=== PATIENT | female | born 1995 | race Caucasian/White ===

== ENCOUNTER 2016-08-03 12:02 | Emergency (ER) | payer BC | END 2016-08-03 14:50 | disposition left against medical advice (07) | LOC: UCEAST 12:02 | DX: Z53.21 Procedure and treatment not carried out due to patient leaving prior to being seen by health care provider (principal); R11.10 Vomiting, unspecified; R09.81 Nasal congestion ==

== ENCOUNTER 2016-11-07 02:13 | Emergency (ER) | payer BC ==
[2016-11-07] MEDS ORDERED: Aspirin Low Dose CHEW TAB* 81 MG PO ONE (03:01)
[2016-11-07 03:52] LABS: Comments Flag Yes; Hematocrit 44 % (35-47); Hemoglobin 14.8 g/dl (12.0-16.0); Mean Corpuscular HGB Conc 34 g/dl (31-36); Mean Corpuscular Hemoglobin 31 pg (27-31); Mean Corpuscular Volume 92 fL (80-97); Red Blood Count 4.78 10^6/ul (4.0-5.4); Red Cell Distribution Width 13 % (10.5-15); White Blood Count 17.1 10^3/ul (3.5-10.8)
[2016-11-07 03:53] LABS: Add Diff/Slide Review? Slide Review Added
[2016-11-07 04:03] LABS: Albumin 4.5 g/dL (3.2-5.2); BUN/Creatinine Ratio 16.9 (8-20); Calcium 9.5 mg/dL (8.6-10.3); EGFR African American 124.2 (>60); EGFR Non-African American 96.6 (>60); Globulin 2.8 g/dL (2-4); Total Bilirubin 0.5 mg/dL (0.2-1.0); Total Protein 7.3 g/dL (6.4-8.9)
[2016-11-07 04:04] LABS: Potassium 4.2 mmol/L (3.5-5.0)
[2016-11-07 04:15] LABS: Mean Platelet Volume 10 um3 (7.4-10.4)
[2016-11-07 06:24] LABS: Urine Bilirubin Negative (Negative); Urine Glucose Negative (Negative); Urine Nitrite Negative (Negative)
[2016-11-07] MEDS ORDERED: Iohexol 350* (CONTRAST) 500 ML MDV IV ONE (07:54)
--- NOTE | 2016-11-07 07:54 | RAD ---
HISTORY: Chest pain COMPARISONS: June 20, 2015 VIEWS:1: Single frontal portable view of the chest at 4:35 AM FINDINGS: LINES AND TUBES: None. CARDIOMEDIASTINAL SILHOUETTE: The cardiomediastinal silhouette is normal for portable technique. PLEURA: The costophrenic angles are sharp. No pleural abnormalities are noted. LUNG PARENCHYMA: The lung volumes are low. The lungs are clear accounting for the phase of respiration. ABDOMEN: The upper abdomen is clear. There is no subphrenic gas. BONES AND SOFT TISSUES: No bone or soft tissue abnormalities are noted. IMPRESSION: NO ACTIVE CARDIOPULMONARY DISEASE.
--- NOTE | 2016-11-07 08:12 | RAD ---
HISTORY: Chest pain, shortness of breath, tachycardia COMPARISONS: None TECHNIQUE: Multiple contiguous axial CT scans of the chest were obtained after the administration of nonionic intravenous contrast, timed to the pulmonary arterial phase of contrast enhancement.. Coronal and sagittal multiplanar reformations are also submitted for review. FINDINGS: The study is limited by patient breathing motion artifact. This limits evaluation of the segmental and subsegmental branches of the lower lobes bilaterally NECK AND THYROID: The lower neck and thyroid are unremarkable. CHEST WALL: There is no lower cervical, axillary, or supraclavicular lymphadenopathy by size criteria. HEART AND PERICARDIUM: The heart is unremarkable. AORTA AND PULMONARY VASCULATURE: There is no pulmonary arterial filling defect to suggest pulmonary embolism. There is no linear filling defect within the aorta to suggest aortic dissection. MEDIASTINUM: There is no mediastinal lymphadenopathy by size criteria. FAREED: There is no hilar lymphadenopathy by size criteria. AIRWAY AND ESOPHAGUS: The airway is unremarkable, without endobronchial filling defect. The esophagus is grossly normal. LUNG PARENCHYMA: The lungs are clear. PLEURA: No pleural abnormalities are noted. UPPER ABDOMEN: The upper abdomen is unremarkable. BONES AND SOFT TISSUES: No bone or soft tissue abnormalities are noted. OTHER: None. IMPRESSION: NO PULMONARY ARTERIAL FILLING DEFECT TO SUGGEST PULMONARY EMBOLISM
[2016-11-07 09:53] VITALS: BP 114/55
--- NOTE | 2016-11-07 10:10 | ED ---
Julita Esteves Matthew, scribed for Dimitri Ugarte MD on 11/07/16 at 0832 . Progress - Progress Note Progress Note: The patient is a sign out from Dr. Santizo. Since onset the pain has improved. It was located mid sternal and occasionally radiated into the back. The patient states that she's had similar pain in the past, but not exactly the same. VITAL SIGNS: Reviewed. GENERAL: Patient is a well developed and nourished female who is lying comfortable in the stretcher. Patient is not in any acute respiratory distress. HEAD AND FACE: No signs of trauma. No ecchymosis, hematomas or skull depressions. No sinus tenderness. EYES: PERRLA, EOMI x 2, No injected conjunctiva, no nystagmus. EARS: Hearing grossly intact. Ear canals and tympanic membranes are within normal limits. MOUTH: Oropharynx within normal limits. NECK: Supple, trachea is midline, no adenopathy, no JVD, no carotid bruit, no c- spine tenderness, neck with full ROM. CHEST: Symmetric, no tenderness at palpation LUNGS: Clear to auscultation bilaterally. No wheezing or crackles. CVS: Regular rate and rhythm, S1 and S2 present, no murmurs or gallops appreciated. ABDOMEN: Soft, non-tender. No signs of distention. No rebound no guarding, and no masses palpated. Bowel sounds are normal. EXTREMITIES: FROM in all major joints, no edema, no cyanosis or clubbing. NEURO: Alert and oriented x 3. No acute neurological deficits. Speech is normal and follows commands. SKIN: Dry and warm - Results/Orders Results/Orders: CTA Chest IMPRESSION: NO PULMONARY ARTERIAL FILLING DEFECT TO SUGGEST PULMONARY EMBOLISM - EKG/XRAY/CT EKG: NSR - 75 bpm Comments: No ST elevation; 09:03 time of EKG Course/Dx - Course Course Of Treatment: This patient was sign out by Dr. Santizo to check secondary troponin. If the troponin was negative, the patient was requested to be discharged home and follow-up with her PCP. Test results shows secondary troponin of 0.0. Second EKG showed NSR at [address] Santizo had also done a Chest CTA which was negative for a PE. On re-examination of the patient, she has no chest pain and no other c/o. At this point the patient is asymptomatic and therefore will be discharged home with follow-up from her PCP. She is hemodynamically stable and A&Ox3. I discussed all the findings and test results with the patient. Patient was instructed to return to the emergency room immediately if any of the symptoms return or worsens. Plan of care was discussed with the patient and understands and agrees. All questions were answered at patient satisfaction. There were no further complaints or concerns. Lung exam before discharge: CTA B/L. Good air exchange. No wheezing or crackles heard. CVS: S1 and S2 present. No murmurs appreciated. Patient is alert and oriented x 3. Patient is hemodynamically stable. Patient will be discharged home with follow up PCP in the next 2-3 days - Diagnoses Provider Diagnoses: Chest pain The documentation as recorded by the Julita chávez Matthew accurately reflects the service I personally performed and the decisions made by me, Dimitri Ugarte MD.
--- NOTE | 2016-11-07 20:58 | ED ---
Enio Esteves Billy, scribed for Rik Santizo MD on 11/07/16 at 0422 . 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 for evaluation of intermittent chest pain, dizziness, diaphoresis, and nausea. 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 She describes her chest pain as intermittent pressure. Her dizziness is worse with rapid change in position. She has had similar symptoms in the past. - History Of Current Complaint Chief Complaint: EDChestPainROMI Time Seen by Provider: 11/07/16 03:14 Hx Obtained From: Patient Onset/Duration: Gradual Onset Timing: Intermittent, Lasting: Severity Currently: Moderate Severity Initially: Moderate Aggravating Factor(s): rapid change in position Associated Signs And Symptoms: Positive: Dizziness, Chest Pain, Nausea, Diaphoresis - Allergies/Home Medications Allergies/Adverse Reactions: Allergies Allergy/AdvReac Type Severity Reaction Status Date / Time No Known Allergies Allergy Verified 11/07/16 02:20 PMH/Surg Hx/FS Hx/Imm Hx Endocrine/Hematology History: Denies: Hx Anticoagulant Therapy, Hx Diabetes, Hx Thyroid Disease Cardiovascular History: Denies: Hx Congestive Heart Failure, Hx Deep Vein Thrombosis, Hx Hypertension , Hx Myocardial Infarction, Hx Pacemaker/ICD Comment Only: Other Cardiovascular Problems/Disorders - HEART ABLATION , SINUS TACHYCARDIA, [id number] SYDROME Respiratory History: Denies: Hx Asthma, Hx Chronic Obstructive Pulmonary Disease (COPD), Hx Lung Cancer, Hx Pneumonia, Hx Pulmonary Embolism GI History: Denies: Hx Gall Bladder Disease, Hx Gastrointestinal Bleed, Hx Ulcer, Hx Urosepsis History: Denies: Hx Kidney Stones, Hx Renal Disease Neurological History: Denies: Hx Dementia, Hx Migraine, Hx Seizures, Hx Transient Ischemic Attacks (TIA) Psychiatric History: Denies: Hx Anxiety, Hx Depression, Hx Schizophrenia, Hx Bipolar Disorder - Surgical History Surgery Procedure, Year, and Place: Tonsillectomy age 5, catheter ablation June 2012 at [place], CARDIAC ABLATION NOVEMBER 2009 - Immunization History Date of Tetanus Vaccine: Up to date Date of Influenza Vaccine: None Infectious Disease History: No Infectious Disease History: Denies: Hx Clostridium Difficile, Hx Hepatitis, Hx Human Immunodeficiency Virus (HIV), History Other Infectious Disease, Traveled Outside the [place] in Last 30 Days - Family History Known Family History: Positive: Renal Disease - kidney stone Negative: Cardiac Disease, Hypertension, Diabetes - Social History Alcohol Use: Rare Substance Use Type: Reports: None Smoking Status (MU): Heavy Every Day Tobacco Smoker Type: Cigarettes Amount Used/How Often: 1/2 ppd Length of Time of Smoking/Using Tobacco: 2 years Have You Smoked in the Last Year: No Review of Systems Positive: Skin Diaphoresis, Other - face feels warm. Negative: Fever, Chills Negative: Erythema Negative: Sore Throat Positive: Chest Pain Negative: Shortness Of Breath, Cough Positive: Nausea. Negative: Vomiting, Diarrhea Negative: burning Negative: Myalgia, Edema Negative: Rash Neurological: Other - dizzy All Other Systems Reviewed And Are Negative: Yes Physical Exam - Summary Physical Exam Summary: Constitutional: Well-developed, Well-nourished, Alert. (-) Distressed Skin: Warm, Dry HENT: Normocephalic; Atraumatic Eyes: Conjunctiva normal Neck: Musculoskeletal ROM normal neck. (-) JVD, (-) Stridor, (-) Tracheal deviation Cardio: Rhythm regular, rate normal, Heart sounds normal; Intact distal pulses; The pedal pulses are 2+ and symmetric. Radial pulses are 2+ and symmetric. (-) Murmur Pulmonary/Chest wall: Effort normal. (-) Respiratory distress, (-) Wheezes, (-) Rales Abd: Soft, (-) Tenderness, (-) Distension, (-) Guarding, (-) Rebound Musculoskeletal: (-) Edema Lymph: (-) Cervical adenopathy Neuro: Alert, Oriented x3 Psych: Mood and affect Normal Triage Information Reviewed: Yes Vital Signs On Initial Exam: Initial Vitals Temp Pulse Resp BP Pulse Ox 96.5 F 121 15 155/83 100 11/07/16 02:15 11/07/16 02:15 11/07/16 02:15 11/07/16 02:15 11/07/16 02:15 Vital Signs Reviewed: Yes - [place] Coma Scale Coma Scale Total: 15 Diagnostics - Vital Signs Vital Signs Temp Pulse Resp BP Pulse Ox 11/07/16 02:18 96.5 F 119 15 155/83 100 11/07/16 02:15 96.5 F 121 15 155/83 100 - Laboratory Lab Results: Lab Results 11/07/16 11/07/16 11/07/16 Range/Units 03:04 03:04 03:04 WBC 17.1 H (3.5-10.8) 10^3/ul RBC 4.78 (4.0-5.4) 10^6/ul Hgb 14.8 (12.0-16.0) g/dl Hct 44 (35-47) % MCV 92 (80-97) fL MCH 31 (27-31) pg MCHC 34 (31-36) g/dl RDW 13 (10.5-15) % Plt Count 242 (150-450) 10^3/ul MPV 10 (7.4-10.4) um3 Neut % (Auto) 68.3 (38-83) % Lymph % (Auto) 22.4 L (25-47) % [place] % (Auto) 6.9 (1-9) % Eos % (Auto) 1.7 (0-6) % Baso % (Auto) 0.7 (0-2) % Absolute Neuts (auto) 11.7 H (1.5-7.7) 10^3/ul Absolute Lymphs (auto) 3.8 (1.0-4.8) 10^3/ul Absolute Monos (auto) 1.2 H (0-0.8) 10^3/ul Absolute Eos (auto) 0.3 (0-0.6) 10^3/ul Absolute Basos (auto) 0.1 (0-0.2) 10^3/ul Absolute Nucleated RBC 0 10^3/ul Nucleated RBC % 0 Sodium 133 (133-145) mmol/L Potassium 4.2 (3.5-5.0) mmol/L Chloride 102 (101-111) mmol/L Carbon Dioxide 23 (22-32) mmol/L Anion Gap 8 (2-11) mmol/L BUN 13 (6-24) mg/dL Creatinine 0.77 (0.51-0.95) mg/dL Est GFR ( Amer) 124.2 (>60) Est GFR (Non-Af Amer) 96.6 (>60) BUN/Creatinine Ratio 16.9 (8-20) Glucose 106 H (70-100) mg/dL Lactic Acid 0.8 (0.5-2.0) mmol/L Calcium 9.5 (8.6-10.3) mg/dL Total Bilirubin 0.50 (0.2-1.0) mg/dL AST 26 (13-39) U/L ALT 30 (7-52) U/L Alkaline Phosphatase 73 (34-104) U/L Troponin I 0.00 (<0.04) ng/mL Total Protein 7.3 (6.4-8.9) g/dL Albumin 4.5 (3.2-5.2) g/dL Globulin 2.8 (2-4) g/dL Albumin/Globulin Ratio 1.6 (1-3) Result Diagrams: 11/07/16 03:04 11/07/16 03:04 Lab Statement: Any lab studies that have been ordered have been reviewed, and results considered in the medical decision making process. - Radiology CXR Radiology Interpretation Completed By: ED Physician - Possible right lower lung field infiltrate. Correlate with CT imaging. - EKG 0235 EKG Interpretation: sinus tachycardia 104 bpm, no STEMI EKG Comparison: No Significant Change - Compared to 06/20/15 Complex Multi-Symp Course/Dx - Diagnoses Provider Diagnoses: Chest pain Discharge - Discharge Plan Condition: Stable Disposition: HOME Patient Education Materials: Chest Pain (ED) Referrals: [facility] [place] [facility] [Outside] Additional Instructions: Please follow-up with your primary care physician in 2 days. The documentation as recorded by the Enio chávez Billy accurately reflects the service I personally performed and the decisions made by , Rik Santizo MD.
== END 2016-11-07 09:52 | disposition home or self-care (01) ==
LOC: ED 02:13
DX: R07.9 Chest pain, unspecified (principal); R42 Dizziness and giddiness; R11.0 Nausea; F17.210 Nicotine dependence, cigarettes, uncomplicated
CPT/HCPCS: 36415; 71010; 71275; 80053; 81003; 83605; 84484; 85025; 93005; 99283; A9270-GY; Q9967

== ENCOUNTER 2017-03-06 17:02 | Emergency (ER) | payer BC ==
[2017-03-06 17:19] VITALS: BP 146/80
--- NOTE | 2017-03-06 17:50 | UC ---
Hand/Wrist HPI - HPI Summary HPI Summary: complaint of left pointer finger pain that started after slamming finge rin care door throughout the day finger pain has increased and feels stiff using ice with some relief hasn't taken any medication for pain constant aching throbbing pain in finger that is non radiating - History Of Current Complaint Chief Complaint: UCUpperExtremity Stated Complaint: FINGER INJURY Time Seen by Provider: 03/06/17 17:36 Hx Last Menstrual Period: 02/14/17 - Allergies/Home Medications Allergies/Adverse Reactions: Allergies Allergy/AdvReac Type Severity Reaction Status Date / Time No Known Allergies Allergy Verified 03/06/17 17:19 Home Medications: Home Medications NK [No Home Medications Reported] 03/06/17 [History Confirmed 03/06/17] PMH/Surg Hx/FS Hx/Imm Hx Previously Healthy: Yes - WPWsyndrome Cardiovascular History: Cardiac Disease Other History Of: Negative For: HIV, Hepatitis B, Hepatitis C, Anticoagulant Therapy - Surgical History Surgical History: Yes Surgery Procedure, Year, and Place: Tonsillectomy age 5, catheter ablation June 2012 at [place], CARDIAC ABLATION NOVEMBER 2009 - Family History Known Family History: Positive: None, Renal Disease - kidney stone Negative: Cardiac Disease, Hypertension, Diabetes - Social History Occupation: Employed Full-time Lives: With Family Alcohol Use: Occasionally Substance Use Type: None Smoking Status (MU): Heavy Every Day Tobacco Smoker Type: Cigarettes Amount Used/How Often: 1/2 ppd Length of Time of Smoking/Using Tobacco: 2 years Have You Smoked in the Last Year: No Household Exposure Type: Cigarettes Cessation Counseling: Patient Advised to Stop - Immunization History Vaccination Up to Date: Yes Review of Systems Constitutional: Negative Skin: Negative Eyes: Negative ENT: Negative Respiratory: Negative Cardiovascular: Negative Gastrointestinal: Negative Genitourinary: Negative Motor: Negative Neurovascular: Negative Musculoskeletal: Other: - left pointer finger Neurological: Negative Psychological: Negative All Other Systems Reviewed And Are Negative: Yes Physical Exam Triage Information Reviewed: Yes Appearance: No Pain Distress, Well-Nourished Vital Signs: Initial Vital Signs Temp 98.8 F 03/06/17 17:16 Pulse 100 03/06/17 17:16 Resp 20 03/06/17 17:16 BP 146/80 03/06/17 17:16 Pulse Ox 100 03/06/17 17:16 Vital Signs Reviewed: Yes Eyes: Positive: Conjunctiva Clear ENT: Positive: Pharynx normal, TMs normal Neck: Positive: No Lymphadenopathy Respiratory: Positive: Lungs clear, Normal breath sounds, No respiratory distress Cardiovascular: Positive: RRR, No Murmur, Pulses Normal, Brisk Capillary Refill Abdomen Description: Positive: Nontender, Soft Bowel Sounds: Positive: Present Musculoskeletal: Positive: Other: - LUE- left hand - edema amd tenderness throughout entire finger- Full ROM- no metacrpal tenderness Neurological: Positive: Alert Psychological Exam: Normal Skin Exam: Normal Hand/Wrist Course/Dx - Course Course Of Treatment: x-ray negative for fractures - Differential Dx/Diagnosis Differential Diagnosis/HQI/PQRI: Contusion, Fracture Provider Diagnoses: left pointer finger contusion Discharge - Discharge Plan Condition: Stable Disposition: HOME Patient Education Materials: Contusion in Adults (ED), RICE Therapy (ED) Referrals: No Primary Care Phys,NOPCP [Primary Care Provider] - [facility] [place] [facility] [Outside] Additional Instructions: Increase fluids and rest Take acetaminophen or ibuprofen for fever or pain Please review your discharge instructions. If your symptoms do not improve please call your primary care provider or return to urgent care.
--- NOTE | 2017-03-06 18:32 | RAD ---
INDICATION: Gross injury to second digit proximal phalanx COMPARISON: None. TECHNIQUE: 4 views of the left hand were obtained. FINDINGS: The adequately corticated bones are in normal alignment. No significant focal osseous abnormality or fracture is seen. Joint spaces appear maintained. IMPRESSION: Normal left hand radiograph. If the patient's symptoms persist, follow-up imaging is recommended.
== END 2017-03-06 18:30 | disposition home or self-care (01) ==
LOC: UCEAST 17:02
DX: S60.022A Contusion of left index finger without damage to nail, initial encounter (principal); W23.0XXA Caught, crushed, jammed, or pinched between moving objects, initial encounter; I45.6 Pre-excitation syndrome; F17.210 Nicotine dependence, cigarettes, uncomplicated; I51.9 Heart disease, unspecified
CPT/HCPCS: 99211; G0463

== ENCOUNTER 2017-10-19 18:57 | Emergency (ER) | payer BC ==
[2017-10-19 19:06] VITALS: BP 158/81
--- NOTE | 2017-10-19 21:19 | RAD ---
HISTORY: Left knee injury COMPARISONS: March 08, 2015 VIEWS: 4, Frontal, lateral, axial, and oblique views of the left knee FINDINGS: BONE DENSITY: Normal. BONES: There is no displaced fracture. JOINTS: There is no arthropathy. There is no suprapatellar joint effusion or lipohemarthrosis. ALIGNMENT: There is no dislocation. SOFT TISSUES: Unremarkable. OTHER FINDINGS: None. IMPRESSION: NO ACUTE OSSEOUS INJURY. IF SYMPTOMS PERSIST, RECOMMEND REPEAT IMAGING.
--- NOTE | 2017-10-19 21:30 | UC ---
Knee Pain HPI - HPI Summary HPI Summary: Last night patient had a friend fall on to the lateral aspect of her left knee while she was sitting on the ground. 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 - History of Current Complaint Chief Complaint: UCLowerExtremity Stated Complaint: KNEE INJURY Time Seen by Provider: 10/19/17 19:30 Hx Obtained From: Patient Hx Last Menstrual Period: 09/20/17 ?: No Onset/Duration: Sudden Onset, Lasting Days - 1, Still Present Severity Initially: Moderate Severity Currently: Moderate Location Of Injury: Lateral left knee Pain Intensity: 8 Pain Scale Used: 0-10 Numeric Character: Throbbing, Stiffness Aggravating Factor(s): Movement, Weight Bearing Alleviating Factor(s): Rest Associated Signs And Symptoms: Positive: Negative Able to Bear Weight: Yes - Allergies/Home Medications Allergies/Adverse Reactions: Allergies Allergy/AdvReac Type Severity Reaction Status Date / Time No Known Allergies Allergy Verified 10/19/17 19:06 Home Medications: Home Medications Ibuprofen [Advil] 1,000 mg PO DAILY PRN 10/19/17 [History Confirmed 10/19/17] PMH/Surg Hx/FS Hx/Imm Hx Previously Healthy: Yes Other History Of: Negative For: HIV, Hepatitis B, Hepatitis C, Anticoagulant Therapy - Surgical History Surgical History: Yes Surgery Procedure, Year, and Place: Tonsillectomy age 5, catheter ablation June 2012 at [place], CARDIAC ABLATION NOVEMBER 2009 - Family History Known Family History: Positive: None, Renal Disease - kidney stone Negative: Cardiac Disease, Hypertension, Diabetes - Social History Occupation: Employed Full-time Lives: With Family Alcohol Use: Occasionally Substance Use Type: None Smoking Status (MU): Heavy Every Day Tobacco Smoker Type: Cigarettes Amount Used/How Often: 1/2 ppd Length of Time of Smoking/Using Tobacco: 2 years Have You Smoked in the Last Year: No Household Exposure Type: Cigarettes Cessation Counseling: Patient Advised to Stop - Immunization History Vaccination Up to Date: Yes Review of Systems Constitutional: Negative Skin: Negative Eyes: Negative ENT: Negative Respiratory: Negative Cardiovascular: Negative Gastrointestinal: Negative Genitourinary: Negative Motor: Negative Neurovascular: Negative Musculoskeletal: Arthralgia - Left knee pain Neurological: Negative Psychological: Negative Is Patient Immunocompromised?: No All Other Systems Reviewed And Are Negative: Yes Physical Exam Triage Information Reviewed: Yes Appearance: Well-Appearing, No Pain Distress, Well-Nourished Vital Signs: Initial Vital Signs Temp 97.1 F 10/19/17 19:03 Pulse 89 10/19/17 19:03 Resp 16 10/19/17 19:03 BP 158/81 10/19/17 19:03 Pulse Ox 100 10/19/17 19:03 Vital Signs Reviewed: Yes Eye Exam: Normal Eyes: Positive: Conjunctiva Clear ENT Exam: Normal ENT: Positive: Normal ENT inspection, Hearing grossly normal. Negative: Nasal congestion, Trismus, Muffled voice, Hoarse voice Neck exam: Normal Neck: Positive: Supple, Nontender Respiratory Exam: Normal Respiratory: Positive: Chest non-tender, No respiratory distress, No accessory muscle use Cardiovascular Exam: Normal Cardiovascular: Positive: RRR, Pulses Normal, Brisk Capillary Refill Musculoskeletal Exam: Normal Musculoskeletal: Positive: Strength Intact, ROM Intact, No Edema Neurological Exam: Normal Neurological: Positive: Alert, Muscle Tone Normal Psychological Exam: Normal Skin Exam: Normal Diagnostics - Radiology No standard instances Xray Interpretation: No Acute Changes Radiology Interpretation Completed By: ED Physician, Radiologist Knee Pain Course/Dx - Course Course Of Treatment: [place] wrap and crutches, Rice, ibuprofen. off work 10/20/17 follow with orthopedic doctor if not resolved 10/21/17 - Differential Dx/Diagnosis Provider Diagnoses: Left knee contusion, elevated blood pressure without diagnosis of hypertension, nicotine dependent Discharge - Sign-Out/Discharge Documenting (check all that apply): Discharge - Discharge Plan Condition: Stable Disposition: HOME Patient Education Materials: Ibuprofen (By mouth), Knee Pain (ED), Hypertension (ED), R.I.C.E. Treatment (ED) Forms: *Work Release Referrals: Desmond Nicole MD [Medical Doctor] - 3 Days - Billing Disposition and Condition Condition: STABLE Disposition: HOME
== END 2017-10-19 21:45 | disposition home or self-care (01) ==
LOC: UCEAST 18:57
DX: S80.02XA Contusion of left knee, initial encounter (principal); W50.0XXA Accidental hit or strike by another person, initial encounter; Y92.9 Unspecified place or not applicable; R03.0 Elevated blood-pressure reading, without diagnosis of hypertension; F17.210 Nicotine dependence, cigarettes, uncomplicated
CPT/HCPCS: 81025; 99213; G0463

== ENCOUNTER 2017-11-08 00:04 | Emergency (ER) | payer BC ==
[2017-11-08] MEDS ORDERED: Clindamycin CAP* 150 MG PO ONE (00:57)
[2017-11-08] MEDS ORDERED: Acetaminophen TAB* 325 MG ONE (01:07)
[2017-11-08] MEDS ORDERED: Acetaminophen TAB* 325 MG PO ONE (01:10)
[2017-11-08 02:07] VITALS: BP 136/84
--- NOTE | 2017-11-08 02:49 | ED ---
Throat Pain/Nasal Congestion <Karl Marsh - Last Filed: 11/08/17 02:51> - HPI Summary HPI Summary: Pt. is a 21 y.o female who presents to the ER for left-sided facial swelling and dental pain started early this afternoon. She denies fever, chills, nausea , vomiting. Patient notes that she recently found out she was . She is no significant past medical history. She states she had some old penicillin from a previous infection and took 3 tablets today. Touching the affected area makes symptoms worse. Rest makes symptoms better. Symptoms are mild in severity. - History of Current Complaint Hx Obtained From: Patient Onset/Duration: Sudden Onset Severity: Moderate Associated Signs And Symptoms: Negative: Dysphagia, FB Sensation, Drooling Cough: None <Navjot Villa - Last Filed: 11/08/17 19:50> - History of Current Complaint Chief Complaint: EDDentalPain Time Seen by Provider: 11/08/17 00:51 - Allergies/Home Medications Allergies/Adverse Reactions: Allergies Allergy/AdvReac Type Severity Reaction Status Date / Time No Known Allergies Allergy Verified 11/08/17 12:30 PMH/Surg Hx/FS Hx/Imm Hx Previously Healthy: Yes Endocrine/Hematology History: Denies: Hx Anticoagulant Therapy, Hx Diabetes, Hx Thyroid Disease Cardiovascular History: Denies: Hx Congestive Heart Failure, Hx Deep Vein Thrombosis, Hx Hypertension , Hx Myocardial Infarction, Hx Pacemaker/ICD Comment Only: Other Cardiovascular Problems/Disorders - HEART ABLATION , SINUS TACHYCARDIA, [id number] SYDROME Respiratory History: Denies: Hx Asthma, Hx Chronic Obstructive Pulmonary Disease (COPD), Hx Lung Cancer, Hx Pneumonia, Hx Pulmonary Embolism GI History: Denies: Hx Gall Bladder Disease, Hx Gastrointestinal Bleed, Hx Ulcer, Hx Urosepsis History: Denies: Hx Kidney Stones, Hx Renal Disease Neurological History: Denies: Hx Dementia, Hx Migraine, Hx Seizures, Hx Transient Ischemic Attacks (TIA) Psychiatric History: Denies: Hx Anxiety, Hx Depression, Hx Schizophrenia, Hx Bipolar Disorder - Surgical History Surgery Procedure, Year, and Place: Tonsillectomy age 5, catheter ablation June 2012 at [place], CARDIAC ABLATION NOVEMBER 2009 - Immunization History Date of Tetanus Vaccine: Up to date Date of Influenza Vaccine: None Infectious Disease History: No Infectious Disease History: Denies: Hx Clostridium Difficile, Hx Hepatitis, Hx Human Immunodeficiency Virus (HIV), History Other Infectious Disease, Traveled Outside the [place] in Last 30 Days - Family History Known Family History: Positive: None, Renal Disease - kidney stone Negative: Cardiac Disease, Hypertension, Diabetes - Social History Occupation: Unemployed Lives: With Family Alcohol Use: Occasionally Substance Use Type: Reports: None Hx Tobacco Use: Yes Smoking Status (MU): Heavy Every Day Tobacco Smoker Type: Cigarettes Amount Used/How Often: 1/2 ppd Length of Time of Smoking/Using Tobacco: 2 years Have You Smoked in the Last Year: No <Navjot Villa - Last Filed: 11/08/17 19:50> Review of Systems Constitutional: Negative Negative: Fever, Chills Eyes: Negative Positive: Dental Pain, Other - Facial swelling. Positive: Palpitations Negative: Shortness Of Breath Gastrointestinal: Negative Negative: Abdominal Pain Neurological: Negative Psychological: Normal All Other Systems Reviewed And Are Negative: Yes <Navjot Villa - Last Filed: 11/08/17 19:50> Physical Exam Vital Signs On Initial Exam: Initial Vitals Temp Pulse Resp BP Pulse Ox 98.7 F 111 18 140/86 99 11/08/17 00:05 11/08/17 00:05 11/08/17 00:05 11/08/17 00:05 11/08/17 00:05 <Karl Marsh - Last Filed: 11/08/17 02:51> Triage Information Reviewed: Yes Vital Signs On Initial Exam: Initial Vitals Temp Pulse Resp BP Pulse Ox 98.7 F 111 18 140/86 99 11/08/17 00:05 11/08/17 00:05 11/08/17 00:05 11/08/17 00:05 11/08/17 00:05 Vital Signs Reviewed: Yes Appearance: Positive: Well-Appearing - Pt. sitting up in bed in NAD. Friend present. Skin: Positive: Warm, Dry Head/Face: Positive: Normal Head/Face Inspection Eyes: Positive: Normal, KADY ENT: Positive: Pharynx normal, TMs normal. Negative: Pharyngeal erythema, Nasal congestion, Nasal drainage, Tonsillar swelling, Tonsillar exudate, Sinus tenderness Dental: Positive: Other - Dental fillings noted to left top molars. Surrounding gums are erythematous and edematous. Diffuse pain on palpation. No drainage abscess noted. Mild facial swelling over the right maxillary region. No submandibular edema. No trismus. No evidence of carlos's angina. No cervical lymphadenopathy. Neck: Positive: Supple, Nontender, No Lymphadenopathy. Negative: Enlarged Nodes @ Respiratory/Lung Sounds: Positive: Clear to Auscultation, Breath Sounds Present Cardiovascular: Positive: Normal, RRR Neurological: Positive: Normal, CN Intact II-III Psychiatric: Positive: Normal <Navjot Villa - Last Filed: 11/08/17 19:50> Diagnostics - Vital Signs Vital Signs Temp Pulse Resp BP Pulse Ox 11/08/17 02:06 98.3 F 101 16 136/84 98 11/08/17 00:05 98.7 F 111 18 140/86 99 <Karl Marsh - Last Filed: 11/08/17 02:51> - Vital Signs Vital Signs Temp Pulse Resp BP Pulse Ox 11/08/17 02:06 98.3 F 101 16 136/84 98 11/08/17 00:05 98.7 F 111 18 140/86 99 <Navjot Villa - Last Filed: 11/08/17 19:50> EENT Course/Dx <Karl Marsh - Last Filed: 11/08/17 02:51> - Course Course Of Treatment: Patient presenting to the ER for dental pain and facial swelling. She is afebrile with stable vital signs. Oxygen saturation is 98% on room air which is normal. 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 EKG was done at 0151 and shows a sinus rhythm of 92 bpm, normal axis, short WA interval, delta waves noted. Case discussed briefly with Dr. Marsh. Will start patient on clindamycin. Advised she can take Tylenol for pain as directed. Also advised her to call her physical therapist aide tomorrow for a close follow-up appointment. She was also given the information for oral surgery counter sales person for close follow-up. Advised to apply warm compresses to face. To return to ER for fever, vomiting, increased swelling or pain. Patient understands and agrees with plan. - Differential Diagnoses Differential Diagnoses: Cellulitis, Dental Abscess, Dental Caries, Sinusitis <Navjot Villa - Last Filed: 11/08/17 19:50> - Diagnoses Provider Diagnoses: Pain, dental, Intermittent palpitations, WPW (Hldag-Lzvamgqaz-Gytzl syndrome) Discharge - Billing Disposition and Condition Condition: GOOD Disposition: HOME <Karl Marsh - Last Filed: 11/08/17 02:51> - Sign-Out/Discharge Documenting (check all that apply): Discharge - Billing Disposition and Condition Condition: GOOD Disposition: HOME <Navjot Villa - Last Filed: 11/08/17 19:50> - Discharge Plan Condition: Good Disposition: HOME Prescriptions: Clindamycin Cap(NF) [Clindamycin Cap 300 mg Cap(NF)] 300 mg PO Q6H 10 Days #40 cap Patient Education Materials: Dental Abscess (ED) Referrals: Salvador Ruiz MD [Doctor of Dental Medicine] - No Primary Care Phys,NOPCP [Primary Care Provider] - Additional Instructions: Call Dr. Ruiz' office tomorrow to make an appointment Take antibiotic as directed Can take Tylenol for pain as directed Apply warm compresses Return to ER for increased swelling, pain, fever, vomiting
== END 2017-11-08 02:06 | disposition home or self-care (01) ==
LOC: ED 00:04
DX: K08.89 Other specified disorders of teeth and supporting structures (principal); R00.2 Palpitations; I45.6 Pre-excitation syndrome
CPT/HCPCS: 93005; 99282; A9270-GY

== ENCOUNTER 2017-11-08 12:23 | Emergency (ER) | payer BC ==
[2017-11-08] MEDS ORDERED: NS 0.9% 1000 ML* 1,000 ML IV ONE (14:31)
[2017-11-08] MEDS ORDERED: Clindamycin 600 MG IVPREMIX(* 600 MG/50 ML SDV IV ONE (14:31)
--- NOTE | 2017-11-08 14:34 | ED ---
Throat Pain/Nasal Congestion - HPI Summary HPI Summary: 21-year-old female presents with dental pain for the past day. She states she was seen here last night and was told if swelling increases she should return. She woke up this morning with increase swelling. She is 6 weeks . She denies any fevers or chills. She denies any nausea vomiting. She denies any pain with eye movement. States she has noticed some swelling below her left eye. She denies any difficulty swallowing. She denies any chest pressure or shortness of breath. She has taken 2 doses of the clindamycin. She does not have a dentist at this time. She states she did not a dentist at this time. - History of Current Complaint Chief Complaint: EDDentalPain Time Seen by Provider: 11/08/17 14:14 - Allergies/Home Medications Allergies/Adverse Reactions: Allergies Allergy/AdvReac Type Severity Reaction Status Date / Time No Known Allergies Allergy Verified 11/08/17 12:30 PMH/Surg Hx/FS Hx/Imm Hx Endocrine/Hematology History: Denies: Hx Anticoagulant Therapy, Hx Diabetes, Hx Thyroid Disease Cardiovascular History: Denies: Hx Congestive Heart Failure, Hx Deep Vein Thrombosis, Hx Hypertension , Hx Myocardial Infarction, Hx Pacemaker/ICD Comment Only: Other Cardiovascular Problems/Disorders - HEART ABLATION , SINUS TACHYCARDIA, [id number] SYDROME Respiratory History: Denies: Hx Asthma, Hx Chronic Obstructive Pulmonary Disease (COPD), Hx Lung Cancer, Hx Pneumonia, Hx Pulmonary Embolism GI History: Denies: Hx Gall Bladder Disease, Hx Gastrointestinal Bleed, Hx Ulcer, Hx Urosepsis History: Denies: Hx Kidney Stones, Hx Renal Disease Neurological History: Denies: Hx Dementia, Hx Migraine, Hx Seizures, Hx Transient Ischemic Attacks (TIA) Psychiatric History: Denies: Hx Anxiety, Hx Depression, Hx Schizophrenia, Hx Bipolar Disorder - Surgical History Surgery Procedure, Year, and Place: Tonsillectomy age 5, catheter ablation June 2012 at [place], CARDIAC ABLATION NOVEMBER 2009 - Immunization History Date of Tetanus Vaccine: Up to date Date of Influenza Vaccine: None Infectious Disease History: No Infectious Disease History: Denies: Hx Clostridium Difficile, Hx Hepatitis, Hx Human Immunodeficiency Virus (HIV), History Other Infectious Disease, Traveled Outside the [place] in Last 30 Days - Family History Known Family History: Positive: None, Renal Disease - kidney stone Negative: Cardiac Disease, Hypertension, Diabetes - Social History Alcohol Use: Occasionally Substance Use Type: Reports: None Hx Tobacco Use: Yes Smoking Status (MU): Heavy Every Day Tobacco Smoker Type: Cigarettes Amount Used/How Often: 1/2 ppd Length of Time of Smoking/Using Tobacco: 2 years Have You Smoked in the Last Year: No Review of Systems Negative: Fever Positive: Dental Pain, Other - facial swelling Negative: Chest Pain Negative: Shortness Of Breath All Other Systems Reviewed And Are Negative: Yes Physical Exam Triage Information Reviewed: Yes Vital Signs On Initial Exam: Initial Vitals Temp Pulse Resp BP Pulse Ox 98.1 F 110 16 124/81 98 11/08/17 12:30 11/08/17 12:30 11/08/17 12:30 11/08/17 12:30 11/08/17 12:30 Vital Signs Reviewed: Yes Appearance: Positive: Well-Appearing Skin: Positive: Warm, Dry Head/Face: Positive: Normal Head/Face Inspection Eyes: Positive: Normal, EOMI, KADY, Conjunctiva Clear ENT: Positive: Normal ENT inspection, Pharynx normal, TMs normal Dental: Positive: Other - edema to left side of face. Negative: Abscess @ - no area of loculation felt Neck: Positive: Supple, Nontender, No Lymphadenopathy Respiratory/Lung Sounds: Positive: Clear to Auscultation, Breath Sounds Present Cardiovascular: Positive: Normal, RRR Musculoskeletal: Positive: Normal Neurological: Positive: Normal Psychiatric: Positive: Normal Diagnostics - Vital Signs Vital Signs Temp Pulse Resp BP Pulse Ox 11/08/17 14:10 97.4 F 106 16 129/73 98 11/08/17 12:30 98.1 F 110 16 124/81 98 - Laboratory Result Diagrams: 11/08/17 15:30 11/08/17 15:30 Lab Statement: Any lab studies that have been ordered have been reviewed, and results considered in the medical decision making process. EENT Course/Dx - Course Course Of Treatment: 21-year-old female presents with dental pain for the past day. She states she was seen here last night and was told if swelling increases she should return. She woke up this morning with increase swelling. She is 6 weeks . She denies any fevers or chills. She denies any nausea vomiting. She denies any pain with eye movement. States she has noticed some swelling below her left eye. She denies any difficulty swallowing. She denies any chest pressure or shortness of breath. She has taken 2 doses of the clindamycin. She does not have a dentist at this time. She states she did not a dentist at this time. On exam swelling noted to left cheek. On exam tenderness to left upper teeth. Some swelling below the left eye been no problems left eye. Extraocular movements intact without pain. As is can not get CT to see if this abscess but no abscess felt on exam. labs wbc 15. lactic normal. discussed with dr brown as has been less than 24 hours will send home after iv dose clindamycin. We'll add on penicillin. told if develops swelling or fevers to return. Patient understands and agrees with plan - Differential Diagnoses Differential Diagnoses: Dental Abscess, Dental Caries, Periorbital/Orbital Cellulitis - Diagnoses Provider Diagnoses: Facial cellulitis, Dental infection Discharge - Sign-Out/Discharge Documenting (check all that apply): Discharge - Discharge Plan Condition: Good Disposition: HOME Prescriptions: Penicillin VK TAB* [Penicillin VK 250 mg Tab*] 500 mg PO QID #28 tab Patient Education Materials: Dental Abscess (ED) Referrals: No Primary Care Phys,NOPCP [Primary Care Provider] - Additional Instructions: Add on PCN four times a day for 7 days Take Tylenol every 6 hours for pain as needed Follow up with dentist Continue Clinda Return to ED if develop fever, if swelling increases after 2 days on antibiotics , pain with eye movement, or any new or worsening symptoms - Billing Disposition and Condition Condition: GOOD Disposition: HOME
[2017-11-08 16:01] LABS: ABS Basophils 0 10^3/ul (0-0.2); ABS Eosinophils 0.1 10^3/ul (0-0.6); ABS Lymphocytes 2.6 10^3/ul (1.0-4.8); ABS Neutrophils 11.3 10^3/ul (1.5-7.7); ABS Nucleated RBC 0 10^3/ul; Eosinophil % 0.9 % (0-6); Hematocrit 41 % (35-47); Hemoglobin 13.6 g/dl (12.0-16.0); Lymphocyte % 17.1 % (25-47); Mean Corpuscular HGB Conc 33 g/dl (31-36); Mean Corpuscular Hemoglobin 32 pg (27-31); Mean Corpuscular Volume 95 fL (80-97); Mean Platelet Volume 9.7 um3 (7.4-10.4); Nucleated Red Blood Cells % 0; Platelet Count 230 10^3/ul (150-450); Red Cell Distribution Width 14 % (10.5-15); White Blood Count 15.1 10^3/ul (3.5-10.8)
[2017-11-08 16:20] LABS: EGFR Non-African American 114.2 (>60)
[2017-11-08] MEDS ORDERED: Penicillin VK TAB* 250 MG PO ONE (16:53)
[2017-11-08 17:35] VITALS: BP 124/73
== END 2017-11-08 17:34 | disposition home or self-care (01) ==
LOC: ED 12:23
DX: L03.211 Cellulitis of face (principal); K04.7 Periapical abscess without sinus; F17.210 Nicotine dependence, cigarettes, uncomplicated
CPT/HCPCS: 36415; 80053; 83605; 85025; 86141; 87040; 96360; 99282; A9270-GY

== ENCOUNTER 2018-01-20 21:02 | Emergency (ER) | payer BC ==
[2018-01-20 21:14] VITALS: BP 138/78
[2018-01-20] MEDS ORDERED: Penicillin VK TAB* 250 MG PO ONE (21:18)
--- NOTE | 2018-01-20 21:18 | UC ---
[facility] HPI - HPI Summary HPI Summary: L lower molar cracked in her sleep a couple nights ago. Tooth had previous filling in it. Since then gradual worsening of pain. No swelling or fever. Was seen for toothache in October in ED, this is different tooth. Has appointment at 5pm tomorrow evening. Currently 17 weeks . - History of Current Complaint Stated Complaint: TOOTH ACHE Time Seen by Provider: 01/20/18 21:04 Hx Obtained From: Patient Hx Last Menstrual Period: 09/20/17 ?: Yes Onset/Duration: Gradual Onset, Lasting Days Severity: Moderate Aggravating Factor(s): Chewing - Allergies/Home Medications Allergies/Adverse Reactions: Allergies Allergy/AdvReac Type Severity Reaction Status Date / Time No Known Allergies Allergy Verified 11/08/17 12:30 Home Medications: Home Medications Famotidine [Acid Controller] 01/20/18 [History] 95/Iron Fum/Folic/Dha [ + Dha Combo Pack] 01/20/18 [History] PMH/Surg Hx/FS Hx/Imm Hx Cardiovascular History: Hypertension Other History Of: Negative For: HIV, Hepatitis B, Hepatitis C, Anticoagulant Therapy - Surgical History Surgical History: Yes Surgery Procedure, Year, and Place: Tonsillectomy age 5, catheter ablation June 2012 at [place], CARDIAC ABLATION NOVEMBER 2009 - Family History Known Family History: Positive: Renal Disease - kidney stone Negative: Cardiac Disease, Hypertension, Diabetes - Social History Lives: With Family Alcohol Use: Occasionally Substance Use Type: None Smoking Status (MU): Heavy Every Day Tobacco Smoker Type: Cigarettes Amount Used/How Often: 1/2 ppd Length of Time of Smoking/Using Tobacco: 2 years Have You Smoked in the Last Year: No Household Exposure Type: Cigarettes Cessation Counseling: Patient Advised to Stop - Immunization History Vaccination Up to Date: Yes Review of Systems Constitutional: Negative Skin: Negative Eyes: Negative ENT: Dental Pain Respiratory: Negative Cardiovascular: Negative Gastrointestinal: Negative Genitourinary: Negative Motor: Negative Neurovascular: Negative Musculoskeletal: Negative Neurological: Negative Psychological: Negative Is Patient Immunocompromised?: No All Other Systems Reviewed And Are Negative: Yes Physical Exam Triage Information Reviewed: Yes Appearance: No Pain Distress, Obese Vital Signs Reviewed: Yes Eye Exam: Normal Eyes: Positive: Conjunctiva Clear ENT Exam: Normal ENT: Positive: Normal ENT inspection, Hearing grossly normal, Pharynx normal, TMs normal Dental: Positive: Percussion Tenderness @ - #19, Dental Fracture @ - #19 open, part missing. Negative: Abscess @ Neck exam: Normal Neck: Positive: Supple, Nontender, No Lymphadenopathy Respiratory Exam: Normal Respiratory: Positive: Chest non-tender, Lungs clear, Normal breath sounds, No respiratory distress Cardiovascular Exam: Normal Cardiovascular: Positive: RRR, No Murmur Musculoskeletal Exam: Normal Neurological Exam: Normal Neurological: Positive: Alert Psychological Exam: Normal Skin Exam: Normal Dental Complaint Course/Dx - Differential Dx/Diagnosis Provider Diagnoses: Dental fracture. dental pain #19 Discharge - Sign-Out/Discharge Documenting (check all that apply): Discharge/Admit/Transfer - Discharge Plan Condition: Stable Disposition: HOME Patient Education Materials: Toothache (ED) Referrals: No Primary Care Phys,NOPCP [Primary Care Provider] - Additional Instructions: See your dentist as planned. - Billing Disposition and Condition Condition: STABLE Disposition: Home
[2018-01-20] MEDS ORDERED: Lidocaine 2% VISCOUS* 15 ML UDC ONE (21:24)
[2018-01-20] MEDS ORDERED: Lidocaine 2% VISCOUS* 15 ML UDC SWISH SPIT ONE (21:26)
== END 2018-01-20 21:23 | disposition home or self-care (01) ==
LOC: UCEAST 21:02
DX: O26.892 Other specified pregnancy related conditions, second trimester (principal); Z3A.17 17 weeks gestation of pregnancy; K03.81 Cracked tooth; O99.332 Smoking (tobacco) complicating pregnancy, second trimester; F17.210 Nicotine dependence, cigarettes, uncomplicated
CPT/HCPCS: 99212; A9270-GY; G0463

== ENCOUNTER 2018-03-21 15:04 | Emergency (ER) | payer BC ==
--- NOTE | 2018-03-21 15:33 | UC ---
Abdominal Pain Female HPI - HPI Summary HPI Summary: 26 WEEKS . ARRIVES C/O 3 DAYS OF CONSTANT SHARP LOWER ABDOMINAL PAIN THAT WAXES AND WANES. RADIATES AROUND TO RIGHT SIDE. ALSO HAS URINARY FREQUENCY. STATES SHE THINKS THE BABY IS MOVING A LITTLE LESS TODAY. DENIES CONTRACTIONS, VAGINAL DISCHARGE OR BLEEDING. NO FEVER OR NAUSEA. - History of Current Complaint Chief Complaint: UCAbdominalPain Stated Complaint: ABD PAIN Time Seen by Provider: 03/21/18 15:15 Hx Obtained From: Patient Hx Last Menstrual Period: 09/20/17 Onset/Duration: Gradual Onset, Lasting Days, Still Present Timing: Constant Severity Initially: Moderate Severity Currently: Moderate Pain Intensity: 7 Pain Scale Used: 0-10 Numeric Location: Discrete At: RLQ, Discrete At: LLQ Radiates: Yes Radiates to: Flank - RIGHT Character: Sharp Aggravating Factor(s): Nothing Alleviating Factor(s): Position Associated Signs and Symptoms: Positive: Back Pain, Urinary Symptoms. Negative : Fever, Vaginal Bleeding, Vaginal Discharge, Nausea, Vomiting, Diarrhea Allergies/Adverse Reactions: Allergies Allergy/AdvReac Type Severity Reaction Status Date / Time No Known Allergies Allergy Verified 03/21/18 15:13 PMH/Surg Hx/FS Hx/Imm Hx Previously Healthy: Yes Other History Of: Negative For: HIV, Hepatitis B, Hepatitis C, Anticoagulant Therapy - Surgical History Surgical History: Yes Surgery Procedure, Year, and Place: Tonsillectomy age 5, catheter ablation June 2012 at [place], CARDIAC ABLATION NOVEMBER 2009 - Family History Known Family History: Positive: None, Renal Disease - kidney stone Negative: Cardiac Disease, Hypertension, Diabetes - Social History Alcohol Use: None Substance Use Type: None Smoking Status (MU): Light Every Day Tobacco Smoker Type: Cigarettes Amount Used/How Often: 1/2 ppd Length of Time of Smoking/Using Tobacco: 2 years Have You Smoked in the Last Year: No Household Exposure Type: Cigarettes - Immunization History Vaccination Up to Date: Yes Review of Systems Constitutional: Negative Respiratory: Negative Cardiovascular: Negative Gastrointestinal: Abdominal Pain Genitourinary: Frequency All Other Systems Reviewed And Are Negative: Yes Physical Exam Triage Information Reviewed: Yes Appearance: Well-Appearing, No Pain Distress, Well-Nourished Vital Signs: Initial Vital Signs Temp 98.4 F 03/21/18 15:08 Pulse 101 03/21/18 15:08 Resp 16 03/21/18 15:08 BP 137/74 03/21/18 15:08 Pulse Ox 98 03/21/18 15:08 Laboratory Tests 03/21/18 15:20 POC Urine Color Dark yellow POC Urine Clarity Cloudy POC Urine pH 6.0 POC Ur Specif [place] >= 1.030 POC Urine Protein Trace A POC Ur Glucose (UA) Negative POC Urine Ketones Negative POC Urine Blood Trace-intact A POC Urine Nitrite Negative POC Urine Bilirubin Negative POC Urine Urobilinogen 0.2 POC U Leukocyte Esteras Trace A Vital Signs Reviewed: Yes Eyes: Positive: Conjunctiva Clear ENT: Positive: Hearing grossly normal Neck: Positive: Supple Respiratory Exam: Normal Cardiovascular Exam: Normal Abdomen Description: Positive: Soft, Other: - GRAVID. Negative: Nontender, CVA Tenderness (R), CVA Tenderness (L), Guarding Musculoskeletal: Positive: No Edema Neurological: Positive: Alert Psychological: Positive: Normal Response To Family, Age Appropriate Behavior Skin: Negative: rashes Abd Pain Female Course/Dx - Course Course Of Treatment: SPOKE WITH OB. STATED THAT IT IS EARLY ENOUGH IN THAT MOVEMENTS NOT YET RELIABLE FOR JUDGING WELL-BEING. ADVISED TO SEND URINE FOR CULTURE AND ENCOURGAE HYDRATION. TO ED IF SX WORSEN. KEEP OB F/U NEXT MONTH. EARLIER IF NEEDED. FHT'S TODAY STRONG AND REGULAR IN THE 140s. REPEAT BP 120/74. - Differential Dx/Diagnosis Provider Diagnoses: ABDOMINAL PAIN IN - Physician Notification/Consults Discussed Care of Patient With: Griselda Dove Time Discussed With Above Provider: 15:45 Discharge - Sign-Out/Discharge Documenting (check all that apply): Patient Departure All imaging exams completed and their final reports reviewed: No Studies - Discharge Plan Condition: Stable Disposition: HOME Patient Education Materials: Abdominal Pain in (ED) Referrals: [facility] [Provider Group] (KEEP YOUR SCHEDULED FOLLOW-UP APPT ) Additional Instructions: YOUR URINE TEST TODAY IS NOT STRONGLY SUPPORTIVE OF ANY URINARY TRACT INFECTION. WILL SEND IT FOR CULTURE AND CALL YOU IF YOU NEED TREATMENT. BE SURE TO STAY WELL-HYDRATED WITH AT LEAST 2 L OF WATER DAILY. QUIT SMOKING. YOUR DISCOMFORT MAY BE DUE TO NORMAL CHANGES OF SUCH ROUND LIGAMENT PAIN. KEEP YOUR OB FOLLOW-UP SCHEDULED. GO TO THE ED WITHOUT FAIL IF YOU DEVELOP WORSENING PAIN, FEVER, NAUSEA, VAGINAL DISCHARGE/BLEEDING, CONTRACTIONS OR ANY OTHER CONCERNING SYMPTOMS. NO ANTI-INFLAMMATORIES DURING . OKAY TO TAKE TYLENOL OCCASIONALLY IF NEEDED. - Billing Disposition and Condition Condition: STABLE Disposition: Home
[2018-03-21 16:04] VITALS: BP 120/74
== END 2018-03-21 16:11 | disposition home or self-care (01) ==
LOC: UCEAST 15:04
DX: O26.892 Other specified pregnancy related conditions, second trimester (principal); Z3A.26 26 weeks gestation of pregnancy; R10.30 Lower abdominal pain, unspecified
CPT/HCPCS: 81003; 87086; 99211; G0463

== ENCOUNTER 2018-03-21 22:22 | Emergency (ER) | payer BC ==
[2018-03-22] MEDS ORDERED: Metoclopramide IV* 5 MG/ML 2 ML VIAL IV ONE (00:09)
[2018-03-22] MEDS ORDERED: Morphine INJ* 2 MG/ML 1 ML SYRINGE (TWO MG - NEW SYRINGE VERSION) IV ONE (00:09)
--- NOTE | 2018-03-22 00:24 | ED ---
Abdominal Pain/Female - HPI Summary HPI Summary: 22 year old F presenting to [facility] accompanied by boyfriend complains of increasingly constant abdominal pain since 3 days ago, worse since three hours ago. She describes the pain as an ache. The pain radiates to the left and right flanks, which is described as a "pulling up" sensation. The patient rates the pain 8/10 in severity. Symptoms aggravated by nothing. Symptoms alleviated by nothing. Patient reports vaginal discharge and decreased appetite. Additionally complains of nausea that began tonight. Patient denies vomiting, abdominal cramping, vaginal bleeding. Patient was referred to Urgent Care earlier today by her OBGYN. Urgent Care advised patient to present to ED if pain worsened. Patient is 26 weeks . A0. No abdominal surgeries. - History of Current Complaint Chief Complaint: EDAbdPain Stated Complaint: 26 WKS PREG/ABD APIN Time Seen by Provider: 03/21/18 23:59 Hx Obtained From: Patient Hx Last Menstrual Period: 09/20/17 Onset/Duration: Lasting Days - 3, Still Present, Worse Since - three hours ago Timing: Constant Severity Currently: Severe Pain Intensity: 8 Pain Scale Used: 0-10 Numeric Radiates: Yes Radiates to: Flank - bilaterally Character: Other: - ache Aggravating Factor(s): Nothing Alleviating Factor(s): Nothing Associated Signs and Symptoms: Positive: Negative - vomiting, abdominal cramping , vaginal bleeding, Other: - vaginal discharge and decreased appetite. Additionally complains of nausea that began tonight. Allergies/Adverse Reactions: Allergies Allergy/AdvReac Type Severity Reaction Status Date / Time No Known Allergies Allergy Verified 03/21/18 15:13 PMH/Surg Hx/FS Hx/Imm Hx Previously Healthy: No Endocrine/Hematology History: Denies: Hx Anticoagulant Therapy, Hx Diabetes, Hx Thyroid Disease Cardiovascular History: Reports: Hx Hypertension Denies: Hx Congestive Heart Failure, Hx Deep Vein Thrombosis, Hx Myocardial Infarction, Hx Pacemaker/ICD Comment Only: Other Cardiovascular Problems/Disorders - HEART ABLATION , SINUS TACHYCARDIA, [id number]-[id number] SYDROME Respiratory History: Denies: Hx Asthma, Hx Chronic Obstructive Pulmonary Disease (COPD), Hx Lung Cancer, Hx Pneumonia, Hx Pulmonary Embolism GI History: Denies: Hx Gall Bladder Disease, Hx Gastrointestinal Bleed, Hx Ulcer, Hx Urosepsis History: Denies: Hx Kidney Stones, Hx Renal Disease Neurological History: Denies: Hx Dementia, Hx Migraine, Hx Seizures, Hx Transient Ischemic Attacks (TIA) Psychiatric History: Denies: Hx Anxiety, Hx Depression, Hx Schizophrenia, Hx Bipolar Disorder - Surgical History Surgery Procedure, Year, and Place: Tonsillectomy age 5, catheter ablation June 2012 at [place], CARDIAC ABLATION NOVEMBER 2009 - Immunization History Date of Tetanus Vaccine: Up to date Date of Influenza Vaccine: None Infectious Disease History: No Infectious Disease History: Denies: Hx Clostridium Difficile, Hx Hepatitis, Hx Human Immunodeficiency Virus (HIV), History Other Infectious Disease, Traveled Outside the [place] in Last 30 Days - Family History Known Family History: Positive: Renal Disease - kidney stone Negative: Cardiac Disease, Hypertension, Diabetes - Social History Alcohol Use: None Hx Substance Use: No Substance Use Type: Reports: None Hx Tobacco Use: Yes Smoking Status (MU): Light Every Day Tobacco Smoker Type: Cigarettes Amount Used/How Often: 1/2 ppd Length of Time of Smoking/Using Tobacco: 2 years Have You Smoked in the Last Year: No Review of Systems Positive: Abdominal Pain - describes as ache, radiates to bilateral flank, Nausea - that began tonight, Other - decreased appetite. Negative: Vomiting Genitourinary: Negative - abdominal cramping, vaginal bleeding Positive: discharge All Other Systems Reviewed And Are Negative: Yes Physical Exam - Summary Physical Exam Summary: Appearance: Well-appearing, Well-nourished, lying in bed comfortably Skin: Warm, dry, no obvious rash Eyes: sclera anicteric, no conjunctival pallor ENT: mucous membranes moist, pharynx appears normal Neck: Supple, nontender Respiratory: Clear to auscultation, no signs of respiratory distress Cardiovascular: Normal S1, S2. No murmurs. Normal distal pulses in tibial and radial bilaterally. Abdomen: Right sided abdominal tenderness with some guarding Musculoskeletal: Normal, Strength/ROM Intact Neurological: A&Ox3, awake and alert, mentation is normal, speech is fluent and appropriate Psychiatric: affect is normal, does not appear anxious or depressed Triage Information Reviewed: Yes Vital Signs On Initial Exam: Initial Vitals Temp Pulse Resp BP Pulse Ox 96.6 F 98 20 139/85 100 03/21/18 22:23 03/21/18 22:23 03/21/18 22:23 03/21/18 22:23 03/21/18 22:23 Vital Signs Reviewed: Yes Diagnostics - Vital Signs Vital Signs Temp Pulse Resp BP Pulse Ox 03/21/18 22:23 96.6 F 98 20 139/85 100 - Laboratory Result Diagrams: 03/22/18 00:27 03/22/18 00:27 Lab Statement: Any lab studies that have been ordered have been reviewed, and results considered in the medical decision making process. Abdominal Pain Fem Course/Dx - Diagnoses Provider Diagnoses: Bacteria in urine, Abdominal pain - Provider Notifications Discussed Care Of Patient With: Hans Paniagua Time Discussed With Above Provider: 06:04 Instructed by Provider To: Other - Dr. Paniagua, [facility], advises to call patient 's OBGYN. Dr. Langston, OBGYN, advises to get ultrasounds of pelvis and appendix, then to contact OBGYN online education manager when completed. Discharge - Sign-Out/Discharge Documenting (check all that apply): Sign-Out Patient Signing out patient TO: Nabila Byrd - Awaiting ultrasounds, pending dispo - Discharge Plan Disposition: AGAINST MEDICAL ADVICE Prescriptions: Nitrofurantoin Macrocrystals* [Macrodantin 100 mg*] 100 mg PO BID 7 Days #14 cap Nitrofurantoin Monohyd/M-Cryst [Macrobid 100 mg Capsule] 100 mg PO BID 7 Days cap Patient Education Materials: Abdominal Pain in (ED), Urinary Tract Infection in (ED) Referrals: No Primary Care Phys,NOPCP [Primary Care Provider] - - Billing Disposition and Condition Disposition: Against Medical Advice - Attestation Statements Document Initiated by Scribe: Yes Documenting Scribe: Tracy Larson Provider For Whom Tammie is Documenting (Include Credential): Varun Lugo MD Scribe Attestation: ITracy, scribed for Vaurn Lugo MD on 03/23/18 at 0218. Scribe Documentation Reviewed: Yes Provider Attestation: The documentation as recorded by the Tracy chávez accurately reflects the service I personally performed and the decisions made by me, Varun Lugo MD
[2018-03-22 00:36] LABS: ABS Basophils 0 10^3/ul (0-0.2); ABS Eosinophils 0.3 10^3/ul (0-0.6); ABS Lymphocytes 3.4 10^3/ul (1.0-4.8); ABS Neutrophils 12.7 10^3/ul (1.5-7.7); ABS Nucleated RBC 0 10^3/ul; Eosinophil % 1.9 % (0-6); Hematocrit 33 % (35-47); Hemoglobin 11.4 g/dl (12.0-16.0); Lymphocyte % 19.6 % (25-47); Mean Corpuscular HGB Conc 34 g/dl (31-36); Mean Corpuscular Hemoglobin 32 pg (27-31); Mean Corpuscular Volume 93 fL (80-97); Mean Platelet Volume 8.7 um3 (7.4-10.4); Nucleated Red Blood Cells % 0; Platelet Count 226 10^3/ul (150-450); Red Blood Count 3.56 10^6/ul (4.00-5.40); Red Cell Distribution Width 13 % (10.5-15); White Blood Count 17.6 10^3/ul (3.5-10.8)
[2018-03-22 00:52] LABS: EGFR Non-African American 171.5 (>60)
[2018-03-22 01:03] LABS: Urine Appearance Cloudy; Urine Blood Negative (Negative); Urine Color Yellow; Urine Ketones Negative (Negative); Urine Protein Negative (Negative); Urine Red Blood Cell Absent (Absent); Urine Specific Gravity 1.012 (1.010-1.030); Urine Urobilinogen Negative (Negative); Urine White Blood Cell Trace(0-5/hpf) (Absent)
--- NOTE | 2018-03-22 07:16 | ED ---
Progress - Progress Note Progress Note: This patient is signed out from Dr. Lugo awaiting an US pelvis and a US appendix. - Results/Orders Results/Orders: A Appendix US reveals, as per radiologist: Morbid obesity limits acoustic window. Nondiagnostic exam due to nonvisualization of the appendix. Pertinent negatives include absence of visualized fluid at the RIGHT lower quadrant and absence of visualized lymphadenopathy. Normal appearing RIGHT ovary with vascular flow documented. ED Physician has reviewed these reports. Course/Dx - Course Course Of Treatment: A 26 week 22 y/o F presents with abdominal pain. Patient is signed out from Dr. Lugo awaiting an appendix ultrasound; if ultrasound is non diagnostic an abdominal MRI will need to be ordered. Patient will be placed on OB strip, to monitor at bedside [08:26] OB came to see patient in ED and did a tracing that was normal. Appendix US reveals, "Morbid obesity limits acoustic window. Nondiagnostic exam due to nonvisualization of the appendix. Pertinent negatives include absence of visualized fluid at the RIGHT lower quadrant. and absence of visualized lymphadenopathy. Normal appearing RIGHT ovary with vascular flow documented.". I spoke with radiolgist, Dr. Mccartney, who approved an MRI. At the time myself and Dr. Mccartney were not aware that MRI would be down for multiple hourse. Patient decides to sign out AMA. Patient will be given antibiotics for urine bacteria. - Diagnoses Provider Diagnoses: Bacteria in urine, Abdominal pain - Provider Notifications Time Discussed With Above Provider: 06:04 Instructed by Provider To: Other Discharge - Sign-Out/Discharge Documenting (check all that apply): Patient Departure - AMA - Discharge Plan Condition: Stable Disposition: AGAINST MEDICAL ADVICE Prescriptions: Nitrofurantoin Macrocrystals* [Macrodantin 100 mg*] 100 mg PO BID 7 Days #14 cap Nitrofurantoin Monohyd/M-Cryst [Macrobid 100 mg Capsule] 100 mg PO BID 7 Days cap Patient Education Materials: Abdominal Pain in (ED), Urinary Tract Infection in (ED) Referrals: No Primary Care Phys,NOPCP [Primary Care Provider] - - Billing Disposition and Condition Condition: STABLE Disposition: Against Medical Advice - Attestation Statements Document Initiated by Scribe: Yes Documenting Scribe: Melanie Heaton Provider For Whom Scribe is Documenting (Include Credential): Nabila Byrd MD Scribe Attestation: I, Melanie Heaton, scribed for Nabila Byrd MD on 03/23/18 at 0931. Scribe Documentation Reviewed: Yes Provider Attestation: The documentation as recorded by the scribe, Melanie Heaton accurately reflects the service I personally performed and the decisions made by me, Nabila Byrd MD
--- NOTE | 2018-03-22 08:54 | RAD ---
INDICATION: 22-year-old female in second trimester with RIGHT-sided abdominal pain. Question appendicitis. COMPARISON: September 22, 2014 CT. TECHNIQUE: Ultrasound of the right lower quadrant. REPORT AND IMPRESSION: #. Morbid obesity limits acoustic window. #. Nondiagnostic exam due to nonvisualization of the appendix. #. Pertinent negatives include absence of visualized fluid at the RIGHT lower quadrant and absence of visualized lymphadenopathy. #. Normal appearing RIGHT ovary with vascular flow documented.
[2018-03-22] MEDS ORDERED: Nitrofurantoin Macrocrystals* 100 MG CAP PO ONE (13:54)
[2018-03-22 14:16] VITALS: BP 114/72
== END 2018-03-22 14:15 | disposition left against medical advice (07) ==
LOC: ED 22:22
DX: O99.89 Other specified diseases and conditions complicating pregnancy, childbirth and the puerperium (principal); R82.71 Bacteriuria; R10.9 Unspecified abdominal pain; O99.212 Obesity complicating pregnancy, second trimester; E66.01 Morbid (severe) obesity due to excess calories; O99.332 Smoking (tobacco) complicating pregnancy, second trimester; F17.210 Nicotine dependence, cigarettes, uncomplicated; Z3A.26 26 weeks gestation of pregnancy
CPT/HCPCS: 36415; 76705; 80053; 81003; 81015; 83690; 85025; 86140; 96374; 96375; 99283; A9270-GY; J2270; J2765

== ENCOUNTER 2018-06-19 07:43 | Inpatient (IN) | payer BC, MEDICAID ==
--- NOTE | 2018-06-19 10:31 | HP ---
General Information - Reason for Visit ROM @10pm last night with small gushes of clear fluid. Ctx started around 3am, increasing in intensity. A small amount of bloody show this am - General Information Maternal Age: 22 Grav: 1 Para: 0 SAB: 0 IEA: 0 Estimated Due Date: 06/27/18 Determined By: LMP Maternal Blood Type and Rh: O Negative - Results this Serology/RPR Result: Non-Reactive Rubella Result: Immune HBsAg Result: Negative HIV Result: Negative GBS Culture Result: Negative Past Medical History Pertinent Past Medical History: See Records Pertinent Past Surgical History: See Records Pertinent Family History: Non-Contributory - Antepartal Records Antepartal Records: Reviewed, Uncomplicated Review of Systems Constitutional: Uncomfortable CV Complaint: No Respiratory: Shortness of Breath: No Gastrointestinal: No Nausea/Vomiting Genitourinary: Leaking Fluid Musculoskeletal: Contractions Neurological: No Headache Movement: Normal Exam Allergies/Adverse Reactions: Allergies No Known Allergies Allergy (Verified 03/21/18 15:13) Lab Values - Entire Visit: Laboratory Tests 06/19/18 08:15 Vag Amniotic Fld Detect Positive - Measurements Height: 5 ft 4 in Weight: 258 lb Weight in lbs: [phone] Body Mass Index (BMI): 44.2 Pre- Weight: 265 lb Weight Gained This : -7 lbs and 0 ozs - Exam Breast: Breast Exam Deferred Extremities: No Edema Heart: Normal Rhythm/Heart Sounds HEENT: No Significant Findings - Abdominal Exam Abdomen Exam: Non-Tender - Ultrasound/Biophysical Profile Ultrasound Status: Not Done Targeted Exam Findings Cervical Exam: 4cm Effacement: 90% Station: -1 Presenting Part: Vertex Membrane Status: SROM Amniotic Fluid Evaluation: Positive ROM Plus EFM Findings - External Monitor Findings Baseline Heart Rate: 135 External Monitor Findings: Accelerations Present, No Pattern of Variable or Late Decelerations, Variability Moderate, Baseline Stable Contractions: Regular Assessment/Plan - Assessment 22yo @38. 6wks with SROM and active labor. GBS neg. - Obstetrical Risk Factors Obstetrical Risk Factors: Obesity, Tobacco Use - Plan Plan: Admit - Anticipate Vaginal Delivery
[2018-06-19 10:47] LABS: Hematocrit 37 % (35-47); Hemoglobin 12.6 g/dl (12.0-16.0); Mean Corpuscular HGB Conc 34 g/dl (31-36); Mean Corpuscular Hemoglobin 32 pg (27-31); Mean Corpuscular Volume 94 fL (80-97); Red Blood Count 3.98 10^6/ul (4.00-5.40); Red Cell Distribution Width 13 % (10.5-15)
[2018-06-19 11:09] LABS: ABS Basophils 0.1 10^3/ul (0-0.2); ABS Eosinophils 0.1 10^3/ul (0-0.6); ABS Lymphocytes 3.3 10^3/ul (1.0-4.8); ABS Monocytes 0.6 10^3/ul (0-0.8); ABS Neutrophils 22.9 10^3/ul (1.5-7.7); ABS Nucleated RBC 0 10^3/ul; Eosinophil % 0.5 % (0-6); Lymphocyte % 12.1 % (25-47); Mean Platelet Volume 9.7 fL (7.4-10.4); Nucleated Red Blood Cells % 0; Platelet Count 279 10^3/ul (150-450)
[2018-06-19 11:13] LABS: EGFR Non-African American 145.6 (>60)
[2018-06-19] MEDS ORDERED: Oxytocin in LR* 20 UNITS/1,000 ML BAG IVPB ONE (14:16)
[2018-06-19] MEDS ORDERED: Oxytocin in LR* 20 UNITS/1,000 ML BAG IVPB SCH ×2 (15:00→21:00)
[2018-06-19] MEDS ORDERED: fentaNYL* 50 MCG/ML 2 ML VIAL (100 MCG VIAL) ONE (15:44)
[2018-06-19] MEDS ORDERED: OBEPIDURAL* 250 ML EPIDURAL ONE (15:45)
[2018-06-19] MEDS ORDERED: Famotidine TAB* 20 MG PO PRN (16:52)
[2018-06-19] MEDS ORDERED: Phenylephrine IV* 40 MCG/ML 10 ML SYRINGE IV PUSH PRN ×2 (16:52)
[2018-06-19] MEDS ORDERED: Sodium Citrate/Citric Acid* 15 ML UDC PO PRN (16:52)
[2018-06-19] MEDS ORDERED: OBEPIDURAL* 250 ML EPIDURAL SCH (17:00)
[2018-06-19] MEDS ORDERED: Dibucaine 1% 28.35 GM TUBE PR PRN (20:09)
[2018-06-19] MEDS ORDERED: Witch Hazel PAD* JAR TOPICAL PRN (20:09)
[2018-06-19] MEDS ORDERED: Glycerin ADULT SUPP PR PRN (20:09)
[2018-06-19] MEDS ORDERED: Acetaminophen TAB* 325 MG PO PRN (20:09)
--- NOTE | 2018-06-19 20:22 | PROCNOTE ---
[facility] OB: Delivery Note - Delivery A Date of : 06/19/18 Time of : 19:47 Flora Weight at : 6 lb 6 oz Score 1 Minute: 7 Score 5 Minutes: 9 Gestational Age in Weeks and Days at Delivery: 38 Weeks and 6 Days Delivery Method: Spontaneous Vaginal Labor: Spontaneous Amniotic Fluid: Clear Estimated Blood Loss: 150 Anesthesia/Analgesia: CEI for Labor Delivered By: Luisana Tse - Nursery Level of Nursery: Regular/Bedside - Perineum Perineal Injury: 1st Degree Perineal Repair: By Delivering Practioner - Events Delivery Events of Note: Pitocin During Labor - Additional Delivery Notes Additional Delivery Notes: Pt had ROM at 10pm the night before admission. Ctx started at 3am. She arrived in early labor and progressed slowly to 5cm, then was started on pitocin. She received an epidural and progressed to fully dilated. She pushed <10min to deliver the infant's head in SOFIE position followed quickly by the shoulders and the rest of the body. The baby was placed on mom's abdomen. After 1min the cord was milked towards the baby, then clamped x2 and cut. The placenta delivered with gentle cord traction and fundal massage. A 1st degree lac was repaired with 3-0 vicryl rapide in a [id number] fashion. Fundus firm. Good hemostasis. Mom and baby stable.
[2018-06-19] MEDS ORDERED: Simethicone TAB* 80 MG TAB.CHEW PO SCH (21:00)
[2018-06-19] MEDS: Ibuprofen TAB* 600 MG PO PRN (23:02)
[2018-06-20 07:06] LABS: ABS Basophils 0 10^3/ul (0-0.2); ABS Eosinophils 0.2 10^3/ul (0-0.6); ABS Lymphocytes 2.8 10^3/ul (1.0-4.8); ABS Monocytes 1.1 10^3/ul (0-0.8); ABS Neutrophils 12.2 10^3/ul (1.5-7.7); ABS Nucleated RBC 0 10^3/ul; Eosinophil % 1.3 % (0-6); Hematocrit 32 % (35-47); Hemoglobin 10.8 g/dl (12.0-16.0); Lymphocyte % 17.3 % (25-47); Mean Corpuscular HGB Conc 34 g/dl (31-36); Mean Corpuscular Hemoglobin 32 pg (27-31); Mean Corpuscular Volume 95 fL (80-97); Mean Platelet Volume 9.2 fL (7.4-10.4); Nucleated Red Blood Cells % 0.1; Platelet Count 212 10^3/ul (150-450); Red Blood Count 3.37 10^6/ul (4.00-5.40); Red Cell Distribution Width 13 % (10.5-15); White Blood Count 16.4 10^3/ul (3.5-10.8)
[2018-06-20] MEDS: Ibuprofen TAB* 600 MG PO PRN ×2 (08:27→14:00)
[2018-06-20] MEDS: Docusate CAP* 100 MG PO SCH ×3 (08:37→22:34)
[2018-06-20] MEDS ORDERED: Ferrous Gluconate TAB* 324 MG TAB PO SCH (09:00)
[2018-06-20] MEDS ORDERED: RHO D Immune Globulin (HUMAN)* 300 MCG = 1,500 I.U. INJ IM ONE (13:04)
[2018-06-21 08:17] VITALS: BP 136/86
== END 2018-06-21 11:00 | disposition home or self-care (01) | DRG 560 ==
LOC: MCHOBOUT 07:43 → MCHOB 08:48
PROVIDERS: ADMIT Obstetrics & Gynecology; ATTEND Obstetrics & Gynecology
PROC: 10E0XZZ Delivery of Products of Conception, External Approach (ICD-10-PCS; principal; 2018-06-19)
PROC: 0HQ9XZZ Repair Perineum Skin, External Approach (ICD-10-PCS; 2018-06-19)
DX: O42.02 Full-term premature rupture of membranes, onset of labor within 24 hours of rupture (principal); Z68.41 Body mass index [BMI] 40.0-44.9, adult; Z37.0 Single live birth; O99.214 Obesity complicating childbirth; E66.9 Obesity, unspecified; O99.334 Smoking (tobacco) complicating childbirth; F17.210 Nicotine dependence, cigarettes, uncomplicated; O70.0 First degree perineal laceration during delivery; O75.89 Other specified complications of labor and delivery; I45.6 Pre-excitation syndrome; Z3A.38 38 weeks gestation of pregnancy
CPT/HCPCS: 36415; 80048; 83735; 84112; 85025; 85461; 86850; 86870; 86880; 86900; 86901; A9270-GY; J2790; J3010

== ENCOUNTER 2018-07-08 14:58 | Emergency (ER) | payer BC, MEDICAID ==
[2018-07-08 15:12] VITALS: BP 103/51
[2018-07-08] MEDS ORDERED: Lidocaine 2% VISCOUS* 15 ML UDC SWISH SPIT ONE (15:55)
--- NOTE | 2018-07-08 16:14 | ED ---
Throat Pain/Nasal Congestion - HPI Summary HPI Summary: Pt presents w/ Lt upper dental pain and swelling which started yesterday and now facial swelling this morning on same side. H/o infection here - feels same but not as swollen as last time. Denies fever, chills, nausea, vomiting, diarrhea, [place], neck stiffness, ST, otalgia, sneezing, coughing, difficulty breathing or swallowing, eye pain or pressure. Avoiding eating on this side of mouth but still drinking, eating soft foods. . 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 - History of Current Complaint Chief Complaint: UCGeneralIllness Time Seen by Provider: 07/08/18 15:27 Hx Obtained From: Patient, Family/Ice Cream Truck Driver - male partner, 2 week old baby - Allergies/Home Medications Allergies/Adverse Reactions: Allergies Allergy/AdvReac Type Severity Reaction Status Date / Time No Known Allergies Allergy Verified 07/08/18 15:12 PMH/Surg Hx/FS Hx/Imm Hx Previously Healthy: Yes Endocrine/Hematology History: Denies: Hx Anticoagulant Therapy, Hx Diabetes, Hx Thyroid Disease Cardiovascular History: Reports: Hx Hypertension Denies: Hx Congestive Heart Failure, Hx Deep Vein Thrombosis, Hx Myocardial Infarction, Hx Pacemaker/ICD Comment Only: Other Cardiovascular Problems/Disorders - HEART ABLATION , SINUS TACHYCARDIA, [id number] SYDROME Respiratory History: Denies: Hx Asthma, Hx Chronic Obstructive Pulmonary Disease (COPD), Hx Lung Cancer, Hx Pneumonia, Hx Pulmonary Embolism GI History: Denies: Hx Gall Bladder Disease, Hx Gastrointestinal Bleed, Hx Ulcer, Hx Urosepsis History: Denies: Hx Kidney Stones, Hx Renal Disease Neurological History: Denies: Hx Dementia, Hx Migraine, Hx Seizures, Hx Transient Ischemic Attacks (TIA) Psychiatric History: Denies: Hx Anxiety, Hx Depression, Hx Schizophrenia, Hx Bipolar Disorder - Surgical History Surgery Procedure, Year, and Place: Tonsillectomy age 5, catheter ablation June 2012 at [place], CARDIAC ABLATION NOVEMBER 2009 - Immunization History Date of Tetanus Vaccine: Up to date Date of Influenza Vaccine: None Infectious Disease History: No Infectious Disease History: Denies: Hx Clostridium Difficile, Hx Hepatitis, Hx Human Immunodeficiency Virus (HIV), History Other Infectious Disease, Traveled Outside the [place] in Last 30 Days - Family History Known Family History: Positive: Renal Disease - kidney stone Negative: Cardiac Disease, Hypertension, Diabetes - Social History Lives: With Family - male partner, 2 week old infant Alcohol Use: Rare Hx Substance Use: No Substance Use Type: Reports: None Hx Tobacco Use: Yes Smoking Status (MU): Light Every Day Tobacco Smoker Type: Cigarettes Amount Used/How Often: 1/2 ppd Length of Time of Smoking/Using Tobacco: 2 years Have You Smoked in the Last Year: No Review of Systems Constitutional: Negative Negative: Fever, Chills, Fatigue Eyes: Negative Positive: Dental Pain. Negative: Sore Throat, Ear Ache, Nasal Discharge Cardiovascular: Negative Respiratory: Negative Gastrointestinal: Negative Genitourinary: Negative Musculoskeletal: Negative Skin: Negative Neurological: Negative Negative: Headache Psychological: Normal All Other Systems Reviewed And Are Negative: Yes Physical Exam Triage Information Reviewed: Yes Vital Signs On Initial Exam: Initial Vitals Temp Pulse Resp BP Pulse Ox 97.6 F 80 18 103/51 100 07/08/18 15:08 07/08/18 15:08 07/08/18 15:08 07/08/18 15:08 07/08/18 15:08 Vital Signs Reviewed: Yes Appearance: Positive: Well-Appearing, Well-Nourished, Pain Distress - mild Skin: Positive: Warm, Skin Color Reflects Adequate Perfusion, Dry - no erythema , no lesions over face Head/Face: Positive: Other - mild blunting of Lt nasolabial fold compared to Rt - TTP; no eduardo edema about the eyes or cheek Eyes: Positive: Normal, EOMI, KADY, Conjunctiva Clear, Other: - no proptosis, no pain w/ ocular movement. Negative: Conjunctiva Inflammed, Discharge ENT: Positive: Normal ENT inspection, Hearing grossly normal, Pharynx normal, TMs normal, Uvula midline. Negative: Nasal congestion, Nasal drainage, Tonsillar swelling, Tonsillar exudate, Trismus, Muffled voice Dental: Positive: Abscess @ - Lt upper gingiva w/ edema and bogginess over dental roots Neck: Positive: Supple, Nontender, No Lymphadenopathy Respiratory/Lung Sounds: Positive: Clear to Auscultation, Breath Sounds Present Cardiovascular: Positive: Normal, RRR Musculoskeletal: Positive: Normal, Strength/ROM Intact Neurological: Positive: Normal, Sensory/Motor Intact, Alert, Oriented to Person Place, Time, CN Intact II-III Psychiatric: Positive: Normal Procedures - Incision and Drainage Left Upper Site: Lt upper dental abscess Anesthesia: Topical, Lidocaine Instrument(s): Scalpel - #15 - scant purulent drainage w/ bleeding - resolved w / oral saline rinses Diagnostics - Vital Signs Vital Signs Temp Pulse Resp BP Pulse Ox 07/08/18 15:08 97.6 F 80 18 103/51 100 - Laboratory Lab Statement: Any lab studies that have been ordered have been reviewed, and results considered in the medical decision making process. Re-Evaluation - Re-Evaluation First Eval Change: Improved - facial swelling improved EENT Course/Dx - Diagnoses Provider Diagnoses: Dental abscess Discharge - Sign-Out/Discharge Documenting (check all that apply): Patient Departure All imaging exams completed and their final reports reviewed: No Studies - Discharge Plan Condition: Stable Disposition: HOME Prescriptions: Clindamycin HCl 300 mg PO TID #30 capsule Patient Education Materials: Dental Abscess (ED) Referrals: No Primary Care Phys,NOPCP [Primary Care Provider] - Additional Instructions: Follow-up with dentist [facility] Salt water rinses 2-3 x day Stay hydrated You may take ibuprofen with food as needed for pain/swelling Complete antibiotics as directed *if baby develops diarrhea, rash, thrush, etc, stop and contact gas engine operator compressors [facility] - Billing Disposition and Condition Condition: STABLE Disposition: Home
== END 2018-07-08 16:40 | disposition home or self-care (01) ==
LOC: UCEAST 14:58
DX: K04.7 Periapical abscess without sinus (principal); I10 Essential (primary) hypertension; F17.210 Nicotine dependence, cigarettes, uncomplicated
CPT/HCPCS: 10060; 99212; G0463

== ENCOUNTER 2018-07-24 12:18 | Emergency (ER) | payer BC, MEDICAID ==
[2018-07-24 12:44] VITALS: BP 132/90
--- NOTE | 2018-07-24 12:48 | UC ---
Abdominal Pain Female HPI - HPI Summary HPI Summary: 22 yo female presents with RUQ pain and epigastric pain since last night. Pain is severe and rates it a 10/10. She had episodes of vomiting and loose stools. Has not eaten anything. She is concerned it is her gallbladder. She gave 1 month ago - vaginal delivery without complications. She mentions that she has a hx of WPW. Currently she denies fever, chills, SOB, or chest pain. - History of Current Complaint Chief Complaint: UCAbdominalPain Stated Complaint: ABDOMINAL PAIN Time Seen by Provider: 07/24/18 12:48 Hx Obtained From: Patient Hx Last Menstrual Period: del 06/19/18 Onset/Duration: Sudden Onset Severity Initially: Severe Severity Currently: Severe Pain Intensity: 10 Pain Scale Used: 0-10 Numeric Location: Discrete At: RUQ, Epigastric Allergies/Adverse Reactions: Allergies Allergy/AdvReac Type Severity Reaction Status Date / Time No Known Allergies Allergy Verified 07/24/18 12:44 PMH/Surg Hx/FS Hx/Imm Hx - Additional Past Medical History Additional PMH: WPW Other History Of: Negative For: HIV, Hepatitis B, Hepatitis C, Anticoagulant Therapy - Surgical History Surgical History: None Surgery Procedure, Year, and Place: Tonsillectomy age 5, catheter ablation June 2012 at [place], CARDIAC ABLATION NOVEMBER 2009 - Family History Known Family History: Positive: Renal Disease - kidney stone Negative: Cardiac Disease, Hypertension, Diabetes - Social History Lives: With Family Alcohol Use: Rare Substance Use Type: None Smoking Status (MU): Light Every Day Tobacco Smoker Type: Cigarettes Amount Used/How Often: 1/2 ppd Length of Time of Smoking/Using Tobacco: 2 years Have You Smoked in the Last Year: No Household Exposure Type: Cigarettes - Immunization History Most Recent Influenza Vaccination: 06/10/18 Most Recent Pneumonia Vaccination: Unknown Vaccination Up to Date: Yes Review of Systems All Other Systems Reviewed And Are Negative: Yes Constitutional: Positive: Negative Skin: Positive: Negative Respiratory: Positive: Negative Cardiovascular: Positive: Negative Gastrointestinal: Positive: Abdominal Pain, Vomiting, Diarrhea, Nausea Genitourinary: Positive: Negative Neurovascular: Positive: Negative Neurological: Positive: Negative Psychological: Positive: Negative Physical Exam - Summary Physical Exam Summary: GENERAL: NAD. WDWN. No pain distress. SKIN: No rashes, sores, lesions, or open wounds. NECK: Supple. Nontender. No lymphadenopathy. CHEST: CTAB. No r/r/w. No accessory muscle use. Breathing comfortably and in no distress. CV: RRR. Without m/r/g. Pulses intact. Cap refill <2seconds ABDOMEN: Soft. RUQ and epigastic moderate TTP. Positive veloz sign. No distention or guarding. No CVA tenderness. Bowel sounds present NEURO: Alert. PSYCH: Age appropriate behavior. Triage Information Reviewed: Yes Vital Signs: Initial Vital Signs Temp 98 F 07/24/18 12:41 Pulse 94 07/24/18 12:41 Resp 16 07/24/18 12:41 BP 132/90 07/24/18 12:41 Pulse Ox 100 07/24/18 12:41 Vital Signs Reviewed: Yes Abd Pain Female Course/Dx - Course Course Of Treatment: She does not have a previous dx of cholelithiasis. Given her recent , I suspect her symptoms are related to her gallbladder. Discussed with pt to go to ED due to degree of pain and for likely u/s. - Differential Dx/Diagnosis Provider Diagnosis: RUQ pain, Vomiting Discharge - Sign-Out/Discharge Documenting (check all that apply): Patient Departure All imaging exams completed and their final reports reviewed: No Studies - Discharge Plan Condition: Stable Disposition: HOME-RECOMMEND TO ED Referrals: No Primary Care Phys,NOPCP [Primary Care Provider] - Additional Instructions: Please go to the ER for further evaluation of your abdominal pain - Billing Disposition and Condition Condition: STABLE Disposition: Home-Recommend to ED - Attestation Statements Provider Attestation: I was available for consult. This patient was seen by the LATESHA. The patient was not presented to, seen by, or examined by me. -Hanna
== END 2018-07-24 13:15 | disposition home health service (06) ==
LOC: UCEAST 12:18
DX: R10.11 Right upper quadrant pain (principal); R11.10 Vomiting, unspecified; F17.210 Nicotine dependence, cigarettes, uncomplicated
CPT/HCPCS: 99212; G0463

== ENCOUNTER 2018-11-19 21:19 | Emergency (ER) | payer BC ==
--- OUTSIDE RECORDS SUMMARY | 2018-11-19 21:50 | XMS REPORT | Continuity of Care Document ---
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 Gamal Alexandra PayID: [id number] [address] [address] [place] [address] Advance Directives Description No Information Available Problems Date Description Provider Status Onset: 12/12/2017 Primigravida Betsy Diallo CNM Active Onset: 12/12/2017 Body mass index 40+ - severely obese Betsy Diallo CNM Active Onset: 03/22/2018 Gtphc-Esnqerfyk-Ntfbk pattern Betsy Diallo CNM Active Note: Followed by cardiology Family History Date Family Member(s) Observation Comments Father Unknown Mother Hypertension Children 1 First Daughter A&W Siblings 5 First Brother A&W Second Brother A&W First Sister A&W Second Sister A&W Third Sister A&W Paternal Grandfather due to Accident () Paternal Grandmother due to Cancer () Maternal Grandfather Parkinson's Disease Maternal Grandfather Hypertension Maternal Grandmother Rheumatoid Arthritis Maternal Grandmother Lyme Disease Social History Type Date Description Comments Sex Unknown Education Highest level completed, 12th grade Marital Status Single Lives With Boyfriend Pets 1 dog 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 Has cut back to < 1 time/week. Hoping to quit prior to delivery. Consents to routine drug screening in Tobacco Use Start: Unknown Patient is a current smoker, smokes every day Smoking Status Reviewed: 11/03/18 Patient is a current smoker, smokes every day Exercise Type/Frequency Exercises rarely Seat Belt/Car Seat Always uses seat belt Currently Active Patient is currently sexually active Contraceptive Methods None STD's No STD History Allergies, Adverse Reactions, Alerts Description No Known Drug Allergies Medications Medication Date Status Form Strength Qnty SIG Indications Ordering Provider Staci (52 11/03/ Active IUD 19.5mcg/Da placed Baclawski MG) 2018 y 08/19/18 , MD Luisana 12/12/ Active Chewtabs 0.4-32.5mg 60unit may autosub Sarah Gummies/Dha & 2018 s any chewable Maccarald Folic Acid pnv w/ dha , CNM covered by pt's insurance Famotidine 12/12/ Active Tablets 40mg 60tabs Take 1 Mahrie 2018 Tablet By Yoel Mouth Daily. CNM May Increase To Twice Daily as Needed Oxycodone-Acet 01/27/ Hx Tablets 5-325mg 6tabs Take one by Sarah aminophen 2018 - mouth every Maccarald 03/22/ 4-6 hours as , CNM 2018 needed for dental pain 12/12/ Hx Capsules 27-0.8-250 90caps ok to Mahrie Multivitamin 2018 - mg substitute Diallo, Plus Dha 01/09/ pnv + dha CNM 2018 covered by pt insurance. 1 tablet by mouth daily Medications Administered in Office Medication Date Status Form Strength Qnty SIG Indications Ordering Provider Injection Rho Administered Injection Nurses (D) Immune 018 Globulin, Human, One Dose Package Immunizations CPT Code Status Date Vaccine Lot # [id number] Given 06/10/2018 Tetnus, Diptheria Toxoids And Acellular Pertussis, [id number] PT > 7Yrs Old [id number] Given 06/10/2018 Influenza Vaccine Quadrivalent Preser/Antibiotic [id number] Free Im Use Vital Signs Date Vital Result Comment 11/03/2018 8:42am BP Systolic 128 mmHg BP Diastolic 66 mmHg Height 64.5 inches 5'4.50" Weight 247.00 lb BMI (Body Mass Index) 41.7 kg/m2 Last Menstrual Period [id number] 1 Parity 1 09/23/2018 2:40pm BP Systolic 128 mmHg BP Diastolic 66 mmHg Height 64.5 inches 5'4.50" Weight 235.00 lb BMI (Body Mass Index) 39.7 kg/m2 Last Menstrual Period [id number] 1 Parity 1 08/19/2018 3:34pm BP Systolic 126 mmHg BP Diastolic 72 mmHg Height 64.5 inches 5'4.50" Weight 242.00 lb BMI (Body Mass Index) 40.9 kg/m2 Last Menstrual Period [id number] 1 Parity 1 08/06/2018 2:13pm BP Systolic 136 mmHg BP Diastolic 82 mmHg Height 64.5 inches 5'4.50" Weight 245.00 lb BMI (Body Mass Index) 41.4 kg/m2 Last Menstrual Period [id number] 1 Parity 1 12/12/2017 1:38pm BP Systolic 112 mmHg BP Diastolic 64 mmHg Height 64.5 inches 5'4.50" Weight 257.00 lb BMI (Body Mass Index) 43.4 kg/m2 Last Menstrual Period [id number] 1 Parity 0 Results Test Date Facility Test Result H/L Range Note Laboratory test 06/19/2018 [facility] Rupture of Positive [address] [place] [address] Membranes [phone] Laboratory test 05/30/2018 [facility] AB Screen NEGATIVE [address] [place] [address] [phone] Laboratory test 05/27/2018 [facility] Genital For GRP SEE RESULT [address] [place] [address] B Strep Only BELOW [phone] Urinalysis 05/10/2018 [facility] [place] [address] [phone] Urine Appearance Cloudy Urine Specific Dawson 1.017 N 1.010-1.030 Urine pH 6.0 N 5-9 Urine Urobilinogen Negative Negative Urine Ketones Negative Negative Urine Protein Negative Negative Urine Leukocytes Trace Abnormal Negative Urine Blood Negative Negative Urine Nitrite Negative Negative Urine Bilirubin Negative Negative Urine Glucose 1+(50 mg/dL) Abnormal Negative Urine White Blood Cell Trace(0-5/hpf) Absent Urine Red Blood Cell Absent Absent Urine Bacteria 1+ Abnormal Absent Urine Squamous Epithelial Cell Present Abnormal Absent Urine Culture And 05/10/2018 [facility] Urine Culture SEE RESULT 4 [place] [address] BELOW [phone] Urine Culture And 05/09/2018 [facility] Urine Culture SEE RESULT 5 [place] [address] BELOW [phone] Urinalysis Profile 05/03/2018 [facility] [place] [address] [phone] Urine Appearance Cloudy Urine Specific Dawson 1.021 N 1.010-1.030 Urine pH 6.0 N 5-9 Urine Urobilinogen Negative Negative Urine Ketones Negative Negative Urine Protein Negative Negative Urine Leukocytes 2+ Abnormal Negative Urine Blood Negative Negative Urine Nitrite Negative Negative Urine Bilirubin Negative Negative Urine Glucose Negative Negative Urine White Blood Cell 1+(6-10/hpf) Abnormal Absent Urine Red Blood Cell 2+(6-10/hpf) Abnormal Absent Urine Bacteria 1+ Abnormal Absent Urine Squamous Epithelial Cell Present Abnormal Absent Laboratory test 05/03/2018 [facility] Rupture of Negative [address] [place] [address] Membranes [phone] Urine Culture And 05/03/2018 [facility] Urine Culture SEE RESULT 7 [place] [address] BELOW [phone] Laboratory test 03/25/2018 [facility] Glucose 1 HR 128 mg/dL N 70-1 8 [place] [address] Post Prandial 60 [phone] CBC With No Diff 03/25/2018 [facility] White Blood 15.6 10^3/uL High 3.5- [place] [address] Count 10.8 [phone] Red Blood Count 3.48 10^6/uL Low 4.00-5.40 Hemoglobin 11.3 g/dL Low 12.0-16.0 Hematocrit 33 % Low 35-47 Mean Corpuscular Volume 94 fL N 80-97 Mean Corpuscular Hemoglobin 32 pg High 27-31 Mean Corpuscular HGB Conc 35 g/dL N 31-36 Red Cell Distribution Width 13 % N 10.5-15 Platelet Count 229 10^3/uL N 150-450 Mean Platelet Volume 9.8 um3 N 7.4-10.4 Laboratory test 03/25/2018 [facility] AB Screen NEGATIVE [address] [place] [address] [phone] THC Confirmation 01/09/2018 [facility] Urine Carboxy 120 ng/mL 10 [place] [address] THC Confirm [phone] Urine THC Interpretation Positive. 11 Urine Drug 01/09/2018 [facility] Urine Amphetamine Negative ng/ mL 12 Comp 20 [place] [address] [phone] Urine Barbiturates Negative ng/mL 13 Urine Benzodiazepines Negative ng/mL 14 Urine Cocaine Negative ng/mL 15 Urine Phencyclidine Negative ng/mL Cutoff: 25 Urine Tetrahydrocannabinol Presumptive Posi <SEE NOTE> Abnormal Cutoff: 50 16 ng/mL Creatinine, Urine 269.2 mg/dL Specific Dawson 1.020 pH 6.1 Oxidants Negative 17 Adulterants Comment Normal Codeine, Ur Not Detected ng/mL Cutoff: 25 18 Klwqoni-4-khxx-glucuronide, Ur Not Detected ng/mL 19 Morphine, Ur Not Detected ng/mL Cutoff: 25 20 Gatekikz-4-slza-glucuronide, U Not Detected ng/mL 21 6-monoacetylmorphine, Ur Not Detected ng/mL Cutoff: 25 22 Hydrocodone, Ur Not Detected ng/mL Cutoff: 25 23 Norhydrocodone, Ur Not Detected ng/mL Cutoff: 25 24 Dihydrocodeine, Ur Not Detected ng/mL Cutoff: 25 25 Hydromorphone, Ur Not Detected ng/mL Cutoff: 25 26 Tqirezghdlygk0zomfsunbvsndmyp Not Detected ng/mL 27 Oxycodone, Ur Not Detected ng/mL Cutoff: 25 28 Noroxycodone, Ur Not Detected ng/mL Cutoff: 25 29 Oxymorphone, Ur Not Detected ng/mL Cutoff: 25 30 Egielgnlcse-9-ugog-glucuronide Not Detected ng/mL 31 Noroxymorphone, Ur Not Detected ng/mL Cutoff: 25 32 Fentanyl, Ur Not Detected ng/mL Cutoff: 2 33 Norfentanyl, Ur Not Detected ng/mL Cutoff: 2 34 Meperidine, Ur Not Detected ng/mL Cutoff: 25 35 Normeperidine, Ur Not Detected ng/mL Cutoff: 25 36 Naloxone, Ur Not Detected ng/mL Cutoff: 25 37 Rjrmhepo-5-auhb-glucuronide, U Not Detected ng/mL 38 Methadone, Ur Not Detected ng/mL Cutoff: 25 39 Eddp, Ur Not Detected ng/mL Cutoff: 25 40 Propoxyphene, Ur Not Detected ng/mL Cutoff: 25 41 Norpropoxyphene, Ur Not Detected ng/mL Cutoff: 25 42 Tramadol, Ur Not Detected ng/mL Cutoff: 25 43 O-desmethyltramadol, Ur Not Detected ng/mL Cutoff: 25 44 Tapentadol, Ur Not Detected ng/mL Cutoff: 25 45 N-desmethyltapentadol, Ur Not Detected ng/mL Cutoff: 50 46 Grpmkszxea-ywxy-fhwvyxwyrrd, U Not Detected ng/mL 47 Buprenorphine, Ur Not Detected ng/mL Cutoff: 5 48 Norbuprenorphine, Ur Not Detected ng/mL Cutoff: 5 49 Norbuprenorphine glucuronide Not Detected ng/mL Cutoff: 20 50 Opioid Interpretation See Comment 51 Afp,Screen 01/09/2018 [facility] Results Summary Normal risk Maternal [place], [place] [id number] [phone] Neural Tube Defect Estimate SEE BELOW 52 Collection Date 01/09/18 Maternal Date of 89 Calculated Age At SOPHY 22 years Maternal Weight 257 lbs Insulin Dependent Diabetes No Current Cigarette Smoking Stat Smoker Patient Race non-Black Number of Fetuses 1 Number of Chorions Monochorionic Ivf N o Prev Preg w/Neural Tube Defect N o Patient/Father of Baby Has NTD N o Initial Or Repeat Testing Initial testing Physician Phone Number [phone] SOPHY by LMP 06/27/18 GA On Collection By Dates SEE BELOW wk,d 53 GA Used In Risk Estimate Dates estimate Afp 35.9 ng/mL Afp MoM 1.51 MoM <2.50 Interpretation See Comment 54 Additional Comments See Comment 55 Recommended Follow Up None. General Test Information See Comment 56 Laboratory test 12/12/2017 [facility] Cytology SEE RESULT [address] [place] [address] BELOW [phone] GC/Chlamydia 12/12/2017 [facility] Chlamydia [place] [address] trachomatis Rna [phone] Neisseria gonorrhoeae (GC) Rna Negative Negative Chromosomes 13, 18, 21 12/12/2017 [facility] Chromosome 13 Negative N 58 + Sex Chromosome Aneuploidy Chromosome 18 Aneuploidy Negative N 59 Chromosome 21 Aneuploidy Negative N 60 Sex Chromosome Analysis Female N 61 PDF Report SEE IMAGE PNL No 12/12/2017 [facility] Rubella Screen Immune Immune 62 [place] [address] [phone] Hemoglobin A1c 5.2 % N 4.0-5.6 63 Hepatitis B Surface Ag Nonreactive Nonreactive 64 Syphillis Igg W/Reflex RPR Nonreactive Nonreactive 65 CBC With No 12/12/2017 [facility] White Blood 15.2 10^3/uL High 3.5-10.8 [place] [address] Count [phone] Red Blood Count 4.23 10^6/uL N 4.0-5.4 Hemoglobin 13.7 g/dL N 12.0-16.0 Hematocrit 40 % N 35-47 Mean Corpuscular Volume 94 fL N 80-97 Mean Corpuscular Hemoglobin 32 pg High 27-31 Mean Corpuscular HGB Conc 34 g/dL N 31-36 Red Cell Distribution Width 13 % N 10.5-15 Platelet Count 239 10^3/uL N 150-450 Mean Platelet Volume 10.2 um3 N 7.4-10.4 Type And Screen 12/12/2017 [facility] Patient Blood Type O Negative [place], [place] [address] [phone] Antibody Screen NEGATIVE HIV 1/2 AB 12/12/2017 [facility] HIV 1 2 Nonreactive Nonreactive [address] [place] [address] Antibody [phone] Lead 12/12/2017 [facility] Lead,Venous, < 1.0 g/dL 0.0-4.9 67 [place] [address] B [phone] Submitting Laboratory Phone [phone] Urine Culture And 12/12/2017 [facility] Urine Culture SEE RESULT [address] [place] [address] BELOW [phone] 1 A POSITIVE result indicates probable membrane rupture. 2 [id number] 3 SEE RESULT BELOW Name: GAMAL ALEXANDRA : [address]: Mariposa Langston MD Acct: [id number] Unit: [id number] AGE: 22 Location: [facility] Re05/27/18 SEX: F Status: REG REF SPEC: [id number] CECILIA: 05/27/181140 [facility] DR: Mariposa Langston MD REQ: [id number] RECD: 05/27/18 STATUS: COMP _ SOURCE: KARLI/VAG/RE SPDESC: ORDERED: Grp B Strp Scrn COMMENTS: [id number] QUERIES: Is Patient Penicillin Allergic? N Is patient penicillin allergic and/or sensitivities needed? N Provider Requisition # C77#[id number]_ Procedure Result Reported Site Group B Strep Culture Screen Final 05/29/18- 1050 ML Group B Strep Screen Negative * ML - Main Lab . END OF REPORT DEPARTMENT OF PATHOLOGY, [address] [place] [address] Edgard Cleveland M.D. Director [facility] # [id number] 4 SEE RESULT BELOW Name: NEALTAMMYSTEVEGAMAL : [address]: Mariposa Langston MD Acct: [id number] Unit: [id number] AGE: 22 Location: [facility] Re05/10/18 SEX: F Status: DEP REF SPEC: [id number] CECILIA: 05/10/[address] [facility] [address]: Mariposa Langston MD REQ: [id number] RECD: 05/10/18 STATUS: SHANICE MCCANN DR: Mavis Primary Care Phys,SERGIO _ SOURCE: URINE SPDESC: ORDERED: Urine Culture Procedure Result Reported Site Urine Culture Final 05/12/18- 0816 ML No growth of clinically significant organisms * ML - Main Lab . END OF REPORT DEPARTMENT OF PATHOLOGY, [address] [place] [address] Edgard Cleveland M.D. Director [facility] # [id number] 5 SEE RESULT BELOW Name: GAMAL ALEXANDRA : [address]: Griselda Dove CNM Acct: [id number] Unit: [id number] AGE: 22 Location: [facility] Re05/09/18 SEX: F Status: REG REF SPEC: [id number] CECILIA: 05/09/[address] [facility] [address]: Griselda Dove [facility] REQ: [id number] RECD: 05/09/18 STATUS: COMP _ SOURCE: URINE SPDESC: ORDERED: Urine Culture COMMENTS: [id number] Urine Source: Random Procedure Result Reported Site Urine Culture Final 05/11/18- 3935 ML No growth of clinically significant organisms * ML - Main Lab . END OF REPORT DEPARTMENT OF PATHOLOGY, [address] [place] [address] Edgard Cleveland M.D. Director [facility] # [id number] 6 A NEGATIVE results indicates there is no evidence of membrane rupture. 7 SEE RESULT BELOW Name: GAMAL ALEXANDRA : [address]: Luisana Tse MD Acct: [id number] Unit: [id number] AGE: 22 Location: [facility] Re05/03/18 SEX: F Status: DEP REF SPEC: [id number] CECILIA: 05/03/[address] [facility] [address]: Luisana Tse MD REQ: [id number] RECD: 05/03/18 STATUS: SHANICE MCCANN DR: Mavis Primary Care Phys,NOPCP _ SOURCE: URINE SPDESC: ORDERED: Urine Culture Procedure Result Reported Site Urine Culture Final 05/05/18- 0710 ML No growth of clinically significant organisms * ML - [facility] . END OF REPORT DEPARTMENT OF PATHOLOGY, [address] [place] [address] Edgard Cleveland M.D. Director [facility] # [id number] 10 REFERENCE VALUE Cutoff: 3.0 11 ADDITIONAL INFORMATION This report is intended for use in clinical monitoring and management of patients. It is not intended for use in employment-related testing. This test was developed and its performance characteristics determined by [facility] in a manner consistent with CLIA requirements. This test has not been cleared or approved by the U.S. Food and Drug Administration. Test Performed by: [facility] [address] [place] [address] 12 REFERENCE VALUE Cutoff: 500 13 REFERENCE VALUE Cutoff: 200 14 REFERENCE VALUE Cutoff: 100 15 REFERENCE VALUE Cutoff: 150 16 Presumptive Positive Drug confirmation to follow. Presumptive Positive means that the screening method is positive, but the test needs to be run by a confirmatory method before being finalized. ADDITIONAL INFORMATION This report is intended for use in clinical monitoring or management of patients. It is not intended for use in employment-related testing. 17 REFERENCE VALUE Cutoff: 200 mg/L 18 Tylenol 3 19 Metabolite of codeine REFERENCE VALUE Cutoff: 100 20 Farhana Saleh, Contin; Also a minor metabolite (10%) of codeine and can be seen in low concentrations (<2,000 ng/mL) with poppy seed ingestion. 21 Metabolite of morphine REFERENCE VALUE Cutoff: 100 22 Metabolite of heroin 23 Lortab, Ollie, Vicodin; Also a very minor metabolite of codeine and impurity (<1%) of oxycodone. 24 Metabolite of hydrocodone 25 Metabolite of hydrocodone 26 Dilaudid, Exalgo; Also a metabolite of hydrocodone and a minor (<5%) metabolite of morphine. 27 Metabolite of hydromorphone REFERENCE VALUE Cutoff: 100 28 Endocet, Percocet, Oxycontin 29 Metabolite of oxycodone 30 Numorphan, Opana; Also a metabolite of oxycodone. 31 Metabolite of oxymorphone REFERENCE VALUE Cutoff: 100 32 Metabolite of oxymorphone 33 Actiq, Duragesic, Fentora 34 Metabolite of fentanyl 35 Demerol 36 Metabolite of meperidine 37 Narcan 38 Metabolite of naloxone REFERENCE VALUE Cutoff: 100 39 Dolophine 40 Metabolite of methadone 41 Darvon, Darvocet 42 Metabolite of propoxyphene 43 Tradol, Ultram, Ultracet 44 Metabolite of tramadol 45 Nucynta 46 Metabolite of tapentadol 47 Metabolite of tapentadol REFERENCE VALUE Cutoff: 100 48 Buprenex, Suboxone 49 Metabolite of buprenorphine 50 Metabolite of buprenorphine 51 No opioids were detected. The absence of expected drug(s) and/or drug metabolite(s) may indicate non-compliance, altered pharmacokinetics, inappropriate timing of specimen collection relative to drug administration, diluted/adulterated urine, or limitations of testing. ADDITIONAL INFORMATION This test was developed and its performance characteristics determined by [facility] in a manner consistent with CLIA requirements. This test has not been cleared or approved by the U.S. Food and Drug Administration. Test Performed by: [facility] [address] [place] [address] 52 RESULT: 53 RESULT: 54 RESULT: Screen negative for neural tube defects. 55 RESULT: Reviewed by Bianca Torres,Ph.D. 56 This screening provides an estimation of risk, not a diagnosis. Incorrect or incomplete information may significantly alter results. Results may be unreliable in twin pregnancies with a demise. Results are not available for pregnancies with triplets and higher-order multiples. A positive result occurs when the AFP MoM equals or exceeds 2.5. Screen results and family history influence individual risk. If there is a family history of a neural tube defect, chromosome abnormality, or other inherited condition, consider the option of a genetic consultation. For further information, please contact the maternal screening laboratory at . ADDITIONAL INFORMATION This test was developed and its performance characteristics determined by [facility] in a manner consistent with CLIA requirements. This test has not been cleared or approved by the U.S. Food and Drug Administration. Test Performed by: [facility] [address] [place] [address] 57 SEE RESULT BELOW Name: GAMAL ALEXANDRA : [address]: Betsy Diallo [facility] Acct: [id number] Unit: [id number] AGE: 22 Location: [facility] Re12/12/17 SEX: F Status: REG REF SPEC: [id number] CECILIA: 12/12/17-[address]: Betsy Diallo [facility] REQ: [id number] RECD: 12/13/17 STATUS: SOUT _ ORDERED: TP IMAGE ANALYS COMMENTS: [id number] Negative for Intraepithelial lesion or Malignancy A. Ectocervical/Endocervical Specimen Adequacy: Satisfactory of evaluation Transformation zone component not identified Patient Information: HPV: Thin Layer Pap Test w/reflex to high risk HPV RNA testing when ASCUS Actual Specimen Date: 12/12/17 Last Menstrual Date: 09/20/17 Spec Date if unknown: unknown ?: Y Post Menopausal?: N Hysterectomy?: N Previous Abnormal Pap Smears?:N Signed by and Reported on: MICHAELA Hopper(ASCP) 1231 This Pap test was evaluated with the assistance of the [employer] Net SystemsPrep Test Imaging System. Due to cytologic findings at the switchboard installer microscope, comprehensive manual rescreening by a Molding Cutter may be required. The Pap Smear is a screening test designed to aid in the detection of premalignant and malignant conditions of the uterine cervix. It is not a diagnostic procedure and should not be used as the sole means of detecting cervical cancer. Both false- positive and false- negative reports do occur. Depending on your risk status, a Pap smear should be obtained and evaluated every 1-3 years. END OF REPORT DEPARTMENT OF PATHOLOGY, [address] [place] [address] Edgard Cleveland M.D. Director [facility] # [id number] 58 No aneuploidy detected. 59 No aneuploidy detected. 60 No aneuploidy detected. 61 Female: No aneuploidy detected. 62 [id number] 63 Therapeutic target for the treatment of diabetes mellitus patients is <7% HBA1C, and in selective patients <6.0%. Please refer to [place] [employer] diabetic care guidelines for further information. 64 [id number] 65 Warning: A positive result is not useful for establishing a diagnosis of syphilis. In most situations, such a result may reflect a prior treated infection; a negative result can exclude a diagnosis of syphilis except for incubating or early primary disease. 66 It is recognized that currently available assays for the detection of antibodies to HIV-1 and/or HIV-2 may not detect all infected individuals. HIV antibodies may be undetectable in some stages of the infection and in some clinical conditions. The performance of this assay has not been established for populations of infants or children. Assayed by Chemiluminescence Microparticle Immunoassay on the Siemens Advia Centaur CP. Values obtained with different methods or kits cannot be used interchangeably.The diagnostic specificity of the ADVIA Centaur 1/O/2 Enhanced assay in the low risk population was 99.90% (6052/6058) with a 95% confidence interval of 99.78 to 99.96%. 67 ADDITIONAL INFORMATION Testing performed by Inductively Coupled Plasma-Mass Spectrometry (ICP-MS). This test was developed and its performance characteristics determined by [facility] in a manner consistent with CLIA requirements. This test has not been cleared or approved by the U.S. Food and Drug Administration. 68 Test Performed by: [facility] - [address] [address] 69 SEE RESULT BELOW Name: GAMAL ALEXANDRA : [address]: Betsy Diallo [facility] Acct: [id number] Unit: [id number] AGE: 22 Location: [facility] Re12/12/17 SEX: F Status: REG REF SPEC: [id number] CECILIA: 12/12/17-[address]: Betsy Diallo [facility] REQ: [id number] RECD: 12/12/17 STATUS: COMP _ SOURCE: URINE SPDES: ORDERED: Urine Culture COMMENTS: [id number] Urine Source: Random Procedure Result Reported Site Urine Culture Final 12/14/17- 1879 ML No growth of clinically significant organisms * ML - Main Lab . END OF REPORT DEPARTMENT OF PATHOLOGY, [address] [place] [id number] Edgard Cleveland M.D. Director [facility] # [id number] Procedures Date Code Description Status 08/19/2018 21189 Insert Intrauterine Device Completed 06/19/2018 00337 Obstetric Care Routine Completed 05/30/2018 00917 Injection Intramuscular Or Subcutaneous Completed 05/13/2018 09176 Biophysical Profile Without Non Stress Test Completed 05/13/2018 13958 Echography Uterus Follow-Up Or Repeat Completed 05/10/2018 69884 Non-Stress Test Completed 04/15/2018 14522 Echography Uterus Follow-Up Or Repeat Completed 02/11/2018 26099 Echography Uterus Follow-Up Or Repeat Completed 12/12/2017 09041 OB Ultrasound First Trimester Completed Encounters Type Date Location Provider Dx Diagnosis Office Visit 09/23/2018 [facility] Luisana Tse, Z30.431 Encounter for routine 2:45p checking of intrauterine contracep dev Office Visit 05/10/2018 [facility] Office Mariposa Langston MD O16.3 Unspecified maternal 9:00a hypertension, third trimester Plan of Treatment 09/23/2018 - Luisana Tse [id number] Encounter for routine checking of intrauterine contraceptiveComments:Your IUD appears to be in the correct position.You may continue to have spotting or light bleeding for another 2-5 months. Call with severe pain or heavy bleeding. Return for your annual exam.
[2018-11-19] MEDS ORDERED: NS 0.9% 1000 ML** 1,000 ML IV ONE (23:53)
--- NOTE | 2018-11-20 00:28 | ED ---
Palpitations / Dysrhythmia - HPI Summary HPI Summary: Patient with history of WPW complains of one hour episode of CP, lightheadedness , palpitations, nausea, numbness and tingling in left arm this afternoon. Denies active CP, SOB or any other symptoms at this time. Patient states she usually manages WPW episodes with rest, but states episode seemed worse today. Denies Fever, cough, sore throat, SOB, V/D, abdominal pain, change in urine, change in BM. History of cholecystectomy 1 month ago. History of ablation 3 with no success. 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 - History of Current Complaint Chief Complaint: EDChestPainROMI Time Seen by Provider: 11/19/18 23:03 Hx Obtained From: Patient Onset/Duration: Sudden Onset, Lasting Minutes Severity Initially: Moderate Severity Currently: None Character: Pounding Aggravating: Exertion Alleviating: Rest Associated Signs & Symptoms: Lightheadedness - Allergy/Home Medications Allergies/Adverse Reactions: Allergies Allergy/AdvReac Type Severity Reaction Status Date / Time Penicillins Allergy Anaphylatic Verified 11/19/18 21:22 Shock Home Medications: Home Medications NK [No Home Medications Reported] 11/19/18 [History Confirmed 11/19/18] PMH/Surg Hx/FS Hx/Imm Hx Endocrine/Hematology History: Denies: Hx Anticoagulant Therapy, Hx Diabetes, Hx Thyroid Disease Cardiovascular History: Reports: Hx Hypertension - not on meds Denies: Hx Congestive Heart Failure, Hx Deep Vein Thrombosis, Hx Myocardial Infarction, Hx Pacemaker/ICD Comment Only: Other Cardiovascular Problems/Disorders - HEART ABLATION , SINUS TACHYCARDIA, [id number] SYDROME Respiratory History: Denies: Hx Asthma, Hx Chronic Obstructive Pulmonary Disease (COPD), Hx Lung Cancer, Hx Pneumonia, Hx Pulmonary Embolism GI History: Denies: Hx Gall Bladder Disease, Hx Gastrointestinal Bleed, Hx Ulcer, Hx Urosepsis History: Denies: Hx Kidney Stones, Hx Renal Disease Sensory History: Denies: Hx Eye Prosthesis Opthamlomology History: Denies: Hx Legally Blind EENT History: Denies: Hx Deafness Neurological History: Denies: Hx Dementia, Hx Migraine, Hx Seizures, Hx Transient Ischemic Attacks (TIA) Psychiatric History: Denies: Hx Anxiety, Hx Depression, Hx Schizophrenia, Hx Bipolar Disorder - Surgical History Surgery Procedure, Year, and Place: Tonsillectomy age 5, catheter ablation June 2012 at [place], 3 CARDIAC ABLATION NOVEMBER 2009 - Immunization History Date of Tetanus Vaccine: Up to date Date of Influenza Vaccine: None Infectious Disease History: No Infectious Disease History: Denies: Hx Clostridium Difficile, Hx Hepatitis, Hx Human Immunodeficiency Virus (HIV), History Other Infectious Disease, Traveled Outside the [place] in Last 30 Days - Family History Known Family History: Positive: Renal Disease - kidney stone Negative: Cardiac Disease, Hypertension, Diabetes - Social History Alcohol Use: Occasionally Hx Substance Use: No Substance Use Type: Reports: None Hx Tobacco Use: Yes Smoking Status (MU): Light Every Day Tobacco Smoker Type: Cigarettes Amount Used/How Often: 1/2 ppd Length of Time of Smoking/Using Tobacco: 2 years Have You Smoked in the Last Year: No Review of Systems Constitutional: Negative Eyes: Negative ENT: Negative Positive: Palpitations Respiratory: Negative Positive: Nausea Genitourinary: Negative Musculoskeletal: Negative Skin: Negative Neurological: Negative Psychological: Normal All Other Systems Reviewed And Are Negative: Yes Physical Exam - Summary Physical Exam Summary: Lung sounds clear to auscultation bilaterally. RRR. Triage Information Reviewed: Yes Vital Signs On Initial Exam: Initial Vitals Temp Pulse Resp BP Pulse Ox 98.9 F 117 18 133/88 96 11/19/18 21:22 11/19/18 21:22 11/19/18 21:22 11/19/18 21:22 11/19/18 21:22 Vital Signs Reviewed: Yes Appearance: Positive: Well-Appearing Skin: Positive: Warm Head/Face: Positive: Normal Head/Face Inspection Eyes: Positive: Normal Neck: Positive: Supple Respiratory/Lung Sounds: Positive: Clear to Auscultation Cardiovascular: Positive: Normal Abdomen Description: Positive: Nontender Musculoskeletal: Positive: Normal Neurological: Positive: Normal Psychiatric: Positive: Normal AVPU Assessment: Alert - Hamilton Coma Scale Best Eye Response: 4 - Spontaneous Best Motor Response: 6 - Obeys Commands Best Verbal Response: 5 - Oriented Coma Scale Total: 15 Diagnostics - Vital Signs Vital Signs Temp Pulse Resp BP Pulse Ox 11/19/18 23:00 101 22 97 11/19/18 22:55 102 16 116/80 95 11/19/18 22:54 95 23 96 11/19/18 21:22 98.9 F 117 18 133/88 96 - Laboratory Lab Statement: Any lab studies that have been ordered have been reviewed, and results considered in the medical decision making process. Course/Dx - Course Course Of Treatment: Patient with history of WPW complains of one hour episode of CP, lightheadedness, palpitations, nausea, numbness and tingling in left arm this afternoon.Denies active CP, SOB or any other symptoms at this time. Patient states symptoms are consistent with her WPW episodes and that she usually manages WPW episodes with rest, but states episode seemed worse today. Denies Fever, cough, sore throat, SOB, V/D, abdominal pain, change in urine, change in BM. History of cholecystectomy 1 month ago. History of ablation 3 with no success. 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 Physical exam:Lung sounds clear to auscultation bilaterally. RRR. EKG sinus tachycardia with delta waves consistent with WPW. Chest x-ray unremarkable. Patient no longer tachycardic by time of physical exam. Denies active symptoms. Vital signs otherwise unremarkable. Patient states she feels at baseline and at symptoms are resolved. Has routine appointment with airport shuttle driver on the second november. Patient advised to follow up with cardiology. Patient understands and approves the plan. - Diagnoses Provider Diagnoses: WPW (Kxjnw-Uywjiwynn-Aguxm syndrome) Discharge - Sign-Out/Discharge Documenting (check all that apply): Patient Departure Patient Received Moderate/Deep Sedation with Procedure: No - Discharge Plan Condition: Stable Disposition: HOME Patient Education Materials: Uomph-Jixoxljov-Ruspa Syndrome (ED) Referrals: No Primary Care Phys,NOPCP [Primary Care Provider] - Additional Instructions: Follow-up with your airport shuttle driver for further evaluation. Return to the ED for any new or worsening symptoms. - Billing Disposition and Condition Condition: STABLE Disposition: Home
[2018-11-20 00:35] VITALS: BP 108/80
== END 2018-11-20 00:37 | disposition home or self-care (01) ==
LOC: ED 21:19
DX: I45.6 Pre-excitation syndrome (principal); R94.31 Abnormal electrocardiogram [ECG] [EKG]; I10 Essential (primary) hypertension; F17.210 Nicotine dependence, cigarettes, uncomplicated; Z88.0 Allergy status to penicillin
CPT/HCPCS: 71046; 93005; 96360; 99282

== ENCOUNTER 2019-01-05 16:31 | Emergency (ER) | payer BC ==
[2019-01-05 16:40] VITALS: BP 119/70
[2019-01-05] MEDS ORDERED: Famotidine TAB* 20 MG PO ONE (16:50)
--- NOTE | 2019-01-05 17:06 | UC ---
Abdominal Pain Female HPI - HPI Summary HPI Summary: 23-year-old female presents with intermittent low abdominal pain over the course of the last week. She also reports heartburn and nausea. She feels as though the symptoms are a lot like when she was in the first time. She does have an IUD. She denies vaginal itching, burning or discharge has no urinary symptoms and denies fever vomiting or diarrhea. - History of Current Complaint Chief Complaint: UCAbdominalPain Stated Complaint: ABDOMINAL PAIN Time Seen by Provider: 01/05/19 16:49 Hx Obtained From: Patient Hx Last Menstrual Period: spotting but no period since kyleena insertion Pain Intensity: 5 Allergies/Adverse Reactions: Allergies Allergy/AdvReac Type Severity Reaction Status Date / Time Penicillins Allergy Anaphylatic Verified 01/05/19 16:40 Shock PMH/Surg Hx/FS Hx/Imm Hx Previously Healthy: Yes Cardiovascular History: Other - WPW Other History Of: Negative For: HIV, Hepatitis B, Hepatitis C, Anticoagulant Therapy - Surgical History Surgical History: Yes Surgery Procedure, Year, and Place: Tonsillectomy age 5, catheter ablation June 2012 at [place], 3 CARDIAC ABLATION NOVEMBER 2009. gallbladder surgery september 2018 - Family History Known Family History: Positive: Renal Disease - kidney stone Negative: Cardiac Disease, Hypertension, Diabetes - Social History Occupation: Employed Full-time Alcohol Use: Occasionally Substance Use Type: None Smoking Status (MU): Light Every Day Tobacco Smoker Type: Cigarettes Amount Used/How Often: 1/2 ppd Length of Time of Smoking/Using Tobacco: 2 years Have You Smoked in the Last Year: No Household Exposure Type: Cigarettes - Immunization History Most Recent Influenza Vaccination: 06/10/18 Most Recent Pneumonia Vaccination: Unknown Vaccination Up to Date: Yes Review of Systems All Other Systems Reviewed And Are Negative: Yes Constitutional: Negative: Fever Skin: Positive: Negative Respiratory: Positive: Negative Cardiovascular: Positive: Negative Gastrointestinal: Positive: Abdominal Pain, Nausea. Negative: Vomiting, Diarrhea Genitourinary: Negative: Dysuria, Hematuria, Vaginal/Penile Discharge, Abnormal Bleeding Physical Exam Triage Information Reviewed: Yes Appearance: Well-Appearing, No Pain Distress, Well-Nourished Vital Signs: Initial Vital Signs Temp 97.4 F 01/05/19 16:34 Pulse 85 01/05/19 16:34 Resp 16 01/05/19 16:34 BP 119/70 01/05/19 16:34 Pulse Ox 99 01/05/19 16:34 Vital Signs Reviewed: Yes Eyes: Positive: Conjunctiva Clear ENT: Positive: Hearing grossly normal Neck: Positive: No Lymphadenopathy Respiratory: Positive: Lungs clear Cardiovascular: Positive: RRR Abdomen Description: Positive: Nontender, Soft. Negative: Guarding, McBurney's Point Tenderness Bowel Sounds: Positive: Present Musculoskeletal Exam: Normal Neurological Exam: Normal Psychological Exam: Normal Skin Exam: Normal Diagnostics - Laboratory Lab Results: Lab Results 01/05/19 01/05/19 Range/Units 16:48 16:50 POC Urine Color Yellow POC Urine Clarity Clear POC Urine pH 5.5 (5-9) POC Ur Specif Bryan 1.025 (1.010-1.030) POC Urine Protein Negative (Negative) POC Ur Glucose (UA) Negative (Negative) POC Urine Ketones Negative (Negative) POC Urine Blood Negative (Negative) POC Urine Nitrite Negative (Negative) POC Urine Bilirubin Negative (Negative) POC Urine Urobilinogen 0.2 (Negative) POC U Leukocyte Esteras Negative (Negative) POC Ur Test Negative (Negative) Abd Pain Female Course/Dx - Course Course Of Treatment: No pain at present. Concern for but test is negative. Urinalysis also negative. At [facility] testing. Has follow-up with [employer] on Saturday. - Differential Dx/Diagnosis Differential Diagnosis: Constipation, Ovarian Cyst, Pelvic Inflammatory Disease , , Urinary Tract Infection Provider Diagnosis: Lower abdominal pain Discharge - Sign-Out/Discharge Documenting (check all that apply): Patient Departure All imaging exams completed and their final reports reviewed: No Studies - Discharge Plan Condition: Improved Disposition: HOME Prescriptions: Famotidine TAB* [Pepcid 20 MG TAB*] 20 mg PO BID PRN #30 tab PRN Reason: Heartburn Patient Education Materials: Acute Abdominal Pain (ED) Forms: *Work Release Referrals: No Primary Care Phys,NOPCP [Primary Care Provider] - Additional Instructions: Follow-up with your [employer] as scheduled on Saturday. Avoid ibuprofen, Aleve if you're having heartburn. Avoid alcohol. Return with fever, increased pain, vomiting, worse or other concerns. - Billing Disposition and Condition Condition: IMPROVED Disposition: Home
[2019-01-06 13:33] LABS: Neisseria gonorrhoeae (GC) RNA Negative (Negative)
== END 2019-01-05 17:19 | disposition home or self-care (01) ==
LOC: UCEAST 16:31
DX: R10.30 Lower abdominal pain, unspecified (principal); F17.210 Nicotine dependence, cigarettes, uncomplicated; Z88.0 Allergy status to penicillin
CPT/HCPCS: 81003; 84702; 87491; 87591; 99212; A9270-GY; G0463

== ENCOUNTER 2019-01-20 21:03 | Emergency (ER) | payer BC, OTHER ==
--- OUTSIDE RECORDS SUMMARY | 2019-01-20 21:18 | XMS REPORT | Continuity of Care Document ---
:1995 External Reference #:[id number] Author Name Luisana Tse MD Address [address] [place] [address] Care Team Providers Name Role Phone Mariposa Langston MD Care Team Information Wire Splicer Unavailable Payers Date Identification Numbers Payment Provider Subscriber Policy Number: [id number] Lis BC/BS [facility] Gamal Alexandra PayID: [id number] [address] [address] [place] [address] Problems Active Problems Provider Date Primigravida Betsy Diallo CNM Onset: 12/12/2017 Body mass index 40+ - severely obese Betsy Diallo CNM Onset: 12/12/2017 Njhcx-Vwekpkaqj-Kwuku pattern Betsy Diallo CNM Onset: 03/22/2018 Note: Followed by cardiology Family History Date [...] smoker, smokes every day Smoking Status Reviewed: 01/09/19 Patient is a current smoker, smokes every day Exercise Type/Frequency Exercises rarely Seat Belt/Car Seat Always uses seat belt Currently Active Patient is currently sexually active Contraceptive Methods None STD's No STD History Allergies, Adverse Reactions, Alerts Description No Known Drug Allergies Medications Active Medications SIG Qnty Indications Ordering Date Provider Liletta (52 MG) placed 08/19/18 Luisana Tse, 11/03/2018 19.5mcg/Day IUD Gummies/Dha may autosub any 60units Sarah Wan, 12/12/2017 & Folic Acid chewable pnv w/ CNM dha covered by 0.4-32.5mg Chewtabs pt's insurance Famotidine Take 1 Tablet By 60tabs Betsy Diallo, 12/12/2017 40mg Mouth Daily. November CNM Tablets Increase To Twice Daily as Needed History Medications Oxycodone-Acetaminophen Take one by 6tabs Sarah Wan, 01/27/2018 - 5-325mg Tablets mouth every 4-6 CNM 03/22/2018 hours as needed for dental pain Multivitamin Plus ok to substitute 90caps Betsy Diallo, 2017 - Dha pnv + dha CNM 01/09/2018 27-0.8-250mg Capsules covered by pt insurance. 1 tablet by mouth daily Medications Administered in Office Medication SIG Qnty Indications Ordering Provider Date Injection Rho (D) Immune Globulin, Nurses 05/30/2018 Human, One Dose Package Injection Immunizations CPT Code Status Date Vaccine Lot # 60119 Given 06/10/2018 Tetnus, Diptheria Toxoids And Acellular Pertussis, 2774D PT > 7Yrs Old [address] Given 06/10/2018 Influenza Vaccine Quadrivalent Preser/Antibiotic [id number] Free Im Use Vital Signs Date Vital Result Comment 01/09/2019 9:58am BP Systolic 120 mmHg BP Diastolic 74 mmHg Height 64.5 inches 5'4.50" Weight 248.00 lb BMI (Body Mass Index) 41.9 kg/m2 1 Parity 1 11/03/2018 8:42am BP Systolic 128 mmHg BP Diastolic 66 mmHg Height 64.5 inches 5'4.50" Weight 247.00 lb BMI (Body Mass Index) 41.7 kg/m2 Last Menstrual Period [id number] 1 Parity 1 09/23/2018 2:40pm BP Systolic 128 mmHg BP Diastolic 66 mmHg Height 64.5 inches 5'4.50" Weight 235.00 lb BMI (Body Mass Index) 39.7 kg/m2 Last Menstrual Period [id number] 1 Parity 1 08/19/2018 3:34pm BP Systolic 126 mmHg BP Diastolic 72 mmHg Height 64.5 inches 5'4.50" Weight 242.00 lb BMI (Body Mass Index) 40.9 kg/m2 Last Menstrual Period [id number] 1 Parity 1 08/06/2018 2:13pm BP Systolic 136 mmHg BP Diastolic 82 mmHg Height 64.5 inches 5'4.50" Weight 245.00 lb BMI (Body Mass Index) 41.4 kg/m2 Last Menstrual Period 9039340 1 Parity 1 12/12/2017 1:38pm BP Systolic 112 mmHg BP Diastolic 64 mmHg Height 64.5 inches 5'4.50" Weight 257.00 lb BMI (Body Mass Index) 43.4 kg/m2 Last Menstrual Period 6438193 1 Parity 0 Results Test Date Facility Test Result H/L Range Note Laboratory test 01/09/2019 [facility] HCG <pending> [place] [address] [phone] Prolactin <pending> TSH <pending> T4 Free <pending> Laboratory test 06/19/2018 [facility] Rupture of Positive 1 [place] [address] Membranes [phone] Laboratory test 05/30/2018 [facility] AB Screen NEGATIVE 2 [place] [address] [phone] Laboratory test 05/27/2018 [facility] Genital For GRP SEE RESULT 3 [place] [address] B Strep Only BELOW [phone] Urinalysis 05/10/2018 [facility] [place] [address] [phone] Urine Appearance Cloudy Urine Specific [place] 1.017 N 1.010-1.030 Urine pH 6.0 N [...] Present Abnormal Absent Urine Culture And 05/10/2018 [facility] Urine Culture SEE RESULT 4 [place] [address] BELOW [phone] Urine Culture And 05/09/2018 [facility] Urine Culture SEE RESULT 5 [place] [address] BELOW [phone] Urinalysis Profile 05/03/2018 [facility] [place] [address] [phone] Urine Appearance Cloudy Urine Specific [place] 1.021 N 1.010-1.030 Urine pH 6.0 N [...] Cell Present Abnormal Absent Laboratory test 05/03/2018 [facility] Rupture of Negative 6 [place] [address] Membranes [phone] Urine Culture And 05/03/2018 [facility] Urine Culture SEE RESULT 7 [place] [address] BELOW [phone] Laboratory test 03/25/2018 [facility] Glucose 1 HR 128 mg/dL N 70-1 8 [place] [address] Post Prandial 60 [phone] CBC With No Diff 03/25/2018 [facility] White Blood 15.6 10^3/uL High 3.5- [place] [address] Count 10.8 [phone] Red Blood Count 3.48 10^6/uL Low 4.00-5.40 Hemoglobin 11.3 g/dL Low 12.0-16.0 Hematocrit 33 % Low 35-47 Mean Corpuscular Volume 94 fL N 80-97 Mean Corpuscular Hemoglobin 32 pg High 27-31 Mean Corpuscular HGB Conc 35 g/dL N 31-36 Red Cell Distribution Width 13 % N 10.5-15 Platelet Count 229 10^3/uL N 150-450 Mean Platelet Volume 9.8 um3 N 7.4-10.4 Laboratory test 03/25/2018 [facility] AB Screen NEGATIVE 9 [place] [address] [phone] THC Confirmation 01/09/2018 [facility] Urine Carboxy 120 ng/mL 10 [place] [address] THC Confirm [phone] Urine THC Interpretation Positive. 11 Urine Drug 01/09/2018 [facility] Urine Amphetamine Negative ng/ mL 12 Comp 20 [place] [address] [phone] Urine Barbiturates Negative ng/mL 13 Urine Benzodiazepines Negative ng/mL 14 Urine Cocaine Negative ng/mL 15 Urine Phencyclidine Negative ng/mL Cutoff: 25 Urine Tetrahydrocannabinol Presumptive Posi <SEE NOTE> Abnormal Cutoff: 50 16 ng/mL Creatinine, Urine 269.2 mg/dL Specific [place] 1.020 pH 6.1 Oxidants Negative 17 Adulterants Comment Normal Codeine, Ur Not Detected ng/mL Cutoff: 25 18 Jsjmwuk-7-jqco-glucuronide, Ur Not Detected ng/mL 19 Morphine, Ur Not Detected ng/mL Cutoff: 25 20 Eoffpqdz-6-ncwg-glucuronide, U Not Detected ng/mL 21 6-monoacetylmorphine, Ur Not Detected ng/mL Cutoff: 25 22 Hydrocodone, Ur Not Detected ng/mL Cutoff: 25 23 Norhydrocodone, Ur Not Detected ng/mL Cutoff: 25 24 Dihydrocodeine, Ur Not Detected ng/mL Cutoff: 25 25 Hydromorphone, Ur Not Detected ng/mL Cutoff: 25 26 Tkwaukrkydpca8zjmwxrbkyvhbouz Not Detected ng/mL 27 Oxycodone, Ur Not Detected ng/mL Cutoff: 25 28 Noroxycodone, Ur Not Detected ng/mL Cutoff: 25 29 Oxymorphone, Ur Not Detected ng/mL Cutoff: 25 30 Wkrvzivinwr-6-mxpv-glucuronide Not Detected ng/mL 31 Noroxymorphone, Ur Not Detected ng/mL Cutoff: 25 32 Fentanyl, Ur Not Detected ng/mL Cutoff: 2 33 Norfentanyl, Ur Not Detected ng/mL Cutoff: 2 34 Meperidine, Ur Not Detected ng/mL Cutoff: 25 35 Normeperidine, Ur Not Detected ng/mL Cutoff: 25 36 Naloxone, Ur Not Detected ng/mL Cutoff: 25 37 Wdstxoyj-4-bcfb-glucuronide, U Not Detected ng/mL 38 Methadone, Ur [...] Ur Not Detected ng/mL Cutoff: 50 46 Ogmovejhhq-zgmn-tgweytjbxod, U Not Detected ng/mL 47 Buprenorphine, Ur Not Detected ng/mL Cutoff: 5 48 Norbuprenorphine, Ur Not Detected ng/mL Cutoff: 5 49 Norbuprenorphine glucuronide Not Detected ng/mL Cutoff: 20 50 Opioid Interpretation See Comment 51 Afp,Screen 01/09/2018 [facility] Results Summary Normal risk Maternal [place], [place] [id number] [phone] Neural Tube Defect Estimate SEE BELOW 52 [...] Repeat Testing Initial testing Physician Phone Number [phone] SOPHY by LMP 06/27/18 GA On Collection By Dates SEE BELOW wk,d 53 GA Used In Risk Estimate Dates estimate Afp 35.9 ng/mL Afp MoM 1.51 MoM <2.50 Interpretation See Comment 54 Additional Comments See Comment 55 Recommended Follow Up None. General Test Information See Comment 56 GC/Chlamydia Dna 12/12/2017 [facility] Chlamydia [place] [address] trachomatis Rna [phone] Neisseria gonorrhoeae (GC) Rna Negative Negative Chromosomes 13, 18, 21 12/12/2017 [facility] Chromosome 13 Negative N 57 + Sex Chromosome Aneuploidy Chromosome 18 Aneuploidy Negative N 58 Chromosome 21 Aneuploidy Negative N 59 Sex Chromosome Analysis Female N 60 PDF Report SEE IMAGE PNL No 12/12/2017 [facility] Rubella Screen Immune Immune 61 [place] [address] [phone] Hemoglobin A1c 5.2 % N 4.0-5.6 62 Hepatitis B Surface Ag Nonreactive Nonreactive 63 Syphillis Igg W/Reflex RPR Nonreactive Nonreactive 64 CBC With No 12/12/2017 [facility] White Blood 15.2 10^3/uL High 3.5-10.8 [place] [address] Count [phone] Red Blood Count 4.23 10^6/uL N 4.0-5.4 [...] um3 N 7.4-10.4 Type And Screen 12/12/2017 [facility] Patient [place] [address] [phone] Antibody Screen NEGATIVE HIV 1/2 AB 12/12/2017 [facility] HIV 1 2 Nonreactive Nonreactive 65 [place] [address] Antibody [phone] Lead 12/12/2017 [facility] Lead,Venous, < 1.0 g/dL 0.0-4.9 66 [place] [address] B [phone] Submitting Laboratory Phone [phone] Urine Culture And 12/12/2017 [facility] Urine Culture SEE RESULT 68 [place] [address] BELOW [phone] Laboratory test 12/12/2017 [facility] Cytology SEE RESULT 69 [place] [address] BELOW [phone] 1 A POSITIVE result indicates probable membrane rupture. 2 [id number] 3 SEE RESULT BELOW Name: GAMAL ALEXANDRA : [address]: Mariposa Langston MD Acct: [id number] Unit: [id number] AGE: 22 Location: [facility] Re05/27/18 SEX: F Status: REG REF SPEC: [id number] CECILIA: 05/27/[address] [facility] [address]: Mariposa Langston MD REQ: [id number] RECD: 05/27/18 STATUS: COMP _ SOURCE: KARLI/ANGELINE/RE SPDESC: ORDERED: Pankaj Gutiérrez COMMENTS: [id number] QUERIES: Is Patient Penicillin Allergic? N Is patient penicillin allergic and/or sensitivities needed? N Provider Requisition # [id number]_ Procedure Result Reported Site Group B Strep Culture Screen Final 05/29/18- 1050 ML Group B Strep Screen Negative * ML - Main Lab . END OF REPORT DEPARTMENT OF PATHOLOGY, [address] [place] [address] Edgard Cleveland M.D. Director [facility] # [id number] 4 SEE RESULT BELOW Name: GAMAL ALEXANDRA : [address]: Mariposa Langston MD Acct: [id number] Unit: [id number] AGE: 22 Location: [facility] Re05/10/18 SEX: F Status: DEP REF SPEC: [id number] CECILIA: 05/10/[address]: Mariposa Langston MD REQ: [id number] RECD: 05/10/18 STATUS: COMP OTHR DR: Mavis Primary Care Phys,NOPCP _ SOURCE: URINE SPDESC: ORDERED: Urine Culture Procedure Result Reported Site Urine Culture Final 05/12/18- 0816 ML No growth of clinically significant organisms * ML - Main Lab . END OF REPORT DEPARTMENT OF PATHOLOGY, [address] [place] [address] Edgard Cleveland M.D. Director [facility] # [id number] 5 SEE RESULT BELOW Name: GAMAL ALEXANDRA : [address]: Griselda Dove [facility] Acct: [id number] Unit: [id number] AGE: 22 Location: [facility] Re05/09/18 SEX: F Status: REG REF SPEC: [id number] CECILIA: 05/09/18-[address]: Griselda Dove [facility] REQ: [id number] RECD: 05/09/18 STATUS: COMP _ SOURCE: URINE SPDESC: ORDERED: Urine Culture COMMENTS: [id number] Urine Source: Random Procedure Result Reported Site Urine Culture Final 05/11/18- 0835 ML No growth of clinically significant organisms * ML - Main Lab . END OF REPORT DEPARTMENT OF PATHOLOGY, [address] [place] [address] Edgard Cleveland M.D. Director [facility] # [id number] 6 A NEGATIVE results indicates there is no evidence of membrane rupture. 7 SEE RESULT BELOW Name: GAMAL ALEXANDRA : [address]: Luisana Tse MD Acct: [id number] Unit: [id number] AGE: 22 Location: [facility] Re05/03/18 SEX: F Status: DEP REF SPEC: [id number] CECILIA: 05/03/[address] [facility] [address]: Luisana Tse MD REQ: [id number] RECD: 05/03/18 STATUS: SHANICE MCCANN DR: Mavis Primary Care Phys,NOPCP _ SOURCE: URINE SPDESC: ORDERED: Urine Culture Procedure Result Reported Site Urine Culture Final 05/05/18- 709 ML No growth of clinically significant organisms * ML - Main Lab . END OF REPORT DEPARTMENT OF PATHOLOGY, [address] [place] [address] Edgard Cleveland M.D. Director [facility] # [id number] 8 [id number] 9 [id number] 10 REFERENCE VALUE Cutoff: 3.0 11 ADDITIONAL INFORMATION This report is intended for use in clinical monitoring and management of patients. It is not intended for use in employment-related testing. This test was developed and its performance characteristics determined by [facility] in a manner consistent with CLIA requirements. This test has not been cleared or approved by the U.S. Food and Drug Administration. Test Performed by: [facility] [employer] [facility] [address] [address] 12 REFERENCE VALUE Cutoff: 500 13 REFERENCE [...] REFERENCE VALUE Cutoff: 100 20 Farhana Saleh, MS Contin; Also a minor metabolite (10%) of codeine and can be seen in low concentrations (<2,000 ng/mL) with poppy seed ingestion. 21 Metabolite of morphine REFERENCE VALUE Cutoff: 100 22 Metabolite of heroin 23 Lortab, [place], Vicodin; Also a very minor metabolite of [...] its performance characteristics determined by [facility] in a manner consistent with CLIA requirements. This test has not been cleared or approved by the U.S. Food and Drug Administration. Test Performed by: [facility] - [address] [address] 52 RESULT: 53 RESULT: 54 RESULT: Screen [...] its performance characteristics determined by [facility] in a manner consistent with CLIA requirements. This test has not been cleared or approved by the U.S. Food and Drug Administration. Test Performed by: [facility] - [address] [address] 57 No aneuploidy detected. 58 No aneuploidy detected. 59 No aneuploidy detected. 60 Female: No aneuploidy detected. 61 [id number] 62 Therapeutic target for the treatment of diabetes mellitus patients is <7% HBA1C, and in selective patients <6.0%. Please refer to [place] [employer] diabetic care guidelines for further information. 63 [id number] 64 Warning: A positive result is not useful for establishing a diagnosis of syphilis. In most situations, such a result may reflect a prior treated infection; a negative result can exclude a diagnosis of syphilis except for incubating or early primary disease. 65 It is recognized that currently available assays [...] 95% confidence interval of 99.78 to 99.96%. 66 ADDITIONAL INFORMATION Testing performed by Inductively Coupled Plasma-Mass Spectrometry (ICP-MS). This test was developed and its performance characteristics determined by [facility] in a manner consistent with CLIA requirements. This test has not been cleared or approved by the U.S. Food and Drug Administration. 67 Test Performed by: [facility] - [address] [address] 68 SEE RESULT BELOW Name: GAMAL ALEXANDRA : [address]: Betsy Diallo CNM Acct: [id number] Unit: [id number] AGE: 22 Location: [facility] Re12/12/17 SEX: F Status: REG REF SPEC: [id number] CECILIA: 12/12/17-[address] [facility] [address]: Betsy Diallo CNM REQ: [id number] RECD: 12/12/176553 STATUS: COMP _ SOURCE: URINE [facility]: ORDERED: Urine Culture COMMENTS: [id number] Urine Source: Random Procedure Result Reported Site Urine Culture Final 12/14/17- 0938 ML No growth of clinically significant organisms * ML - Main Lab . END OF REPORT DEPARTMENT OF PATHOLOGY, [address] [place] [address] Edgard Cleveland M.D. Director [facility] # [id number] 69 SEE RESULT BELOW Name: GAMAL ALEXANDRA : [address]: Betsy Diallo [facility] Acct: [id number] Unit: [id number] AGE: 22 Location: [facility] Re12/12/17 SEX: F Status: REG REF SPEC: [id number] CECILIA: 12/12/17-[address]: Betsy Diallo [facility] REQ: [id number] RECD: 12/13/17 STATUS: SOUT _ ORDERED: TP IMAGE ANALYS COMMENTS: [id number] Negative for Intraepithelial lesion or Malignancy A. [...] Signed by and Reported on: MICHAELA Hopper(ASCP) 1237 This Pap test was evaluated with the assistance of the [employer] MedicusPrep Test Imaging System. Due to cytologic findings at the manufacturing engineering professor microscope, comprehensive manual rescreening by a It Training Specialist may be required. The Pap Smear is [...] END OF REPORT DEPARTMENT OF PATHOLOGY, [address] [place] [address] Edgard Cleveland M.D. Director [facility] # [id number] Procedures Date Code Description Status 11/04/2018 98829 Echography Transvaginal Completed 08/19/2018 66522 Insert Intrauterine Device Completed 06/19/2018 97732 Obstetric Care Routine Completed 05/30/2018 62407 Injection Intramuscular Or Subcutaneous Completed 05/13/2018 03515 Biophysical Profile Without Non Stress Test Completed 05/13/2018 59887 Echography Uterus Follow-Up Or Repeat Completed 05/10/2018 47979 Non-Stress Test Completed 04/15/2018 82643 Echography Uterus Follow-Up Or Repeat Completed 02/11/2018 67235 Echography Uterus Follow-Up Or Repeat Completed 12/12/2017 59129 OB Ultrasound First Trimester Completed Encounters Type Date Location Provider Dx Diagnosis Office Visit 11/03/2018 [facility] Luisana Tse, R10.2 Pelvic and perineal 8:45a MD pain Office Visit 09/23/2018 [facility] Luisana Tse, Z30.431 Encounter for routine 2:45p checking of intrauterine contracep dev Office Visit 05/10/2018 [facility] Mariposa Langston MD O16.3 Unspecified maternal 9:00a hypertension, third trimester Plan of Treatment 01/09/2019 - Luisana Tse MDO92.6 GalactorrheaComments:I think it is important to do some bloodwork to evaluate the nipple discharge though it may be related to only having stopped breast feeding several months ago.R11.0 NauseaComments:Uncertain as to cause of nausea. I think it unlikely that all her sxms are caused by the Kyleena IUD as the sxms are more recent and she has had the IUD in for almost 4mo. She also had the Mirena previously which is an even higher dose of hormones and did not have the same sxms. If not other cause can be found for the sxms then it may be reasonable to trial removing the IUD for about a month to seeif things improve. It would be very important to use other contraception during that time though. If labs are normal, then I recommend a consult with her PCP to discuss other possible causes.R10.2 Pelvic and perineal painComments:Uncertain as to exact cause. Does not seem to be too severe or the most concerning of her sxms right now. Occ intermittent cramping is seen with the IUDs. May consider repeat sono in the future if it continues and no other cause is found.
--- OUTSIDE RECORDS SUMMARY | 2019-01-20 21:18 | XMS REPORT | Continuity of Care Document ---
:1995 External Reference #:[id number] Author Name Katerina Robertson Care Team Providers Name Role Phone Mariposa Langston MD Care Team Information Tanner Rotary Drum Continuous Process Unavailable Payers Date Identification Numbers Payment Provider Subscriber Policy Number: [id number] Lisus BC/BS [facility] Gamal Alexandra PayID: [id number] [address] [address] [place] [address] Problems Active Problems Provider Date Primigravida Betsy Diallo CNM Onset: 12/12/2017 Body mass index 40+ - severely obese Betsy Diallo CNM Onset: 12/12/2017 Xhuig-Chommmmut-Nqsbd pattern Betsy Diallo CNM Onset: 03/22/2018 Note: [...] CPT Code Status Date Vaccine Lot # [id number] Given 06/10/2018 Tetnus, Diptheria Toxoids And Acellular Pertussis, [id number] PT > 7Yrs Old [id number] Given 06/10/2018 Influenza Vaccine Quadrivalent Preser/Antibiotic [id number] Free Im Use Vital Signs Date Vital Result Comment 01/09/2019 9:58am BP Systolic 120 mmHg BP Diastolic 74 mmHg Height 64.5 inches 5'4.50" Weight 248.00 lb BMI (Body Mass Index) 41.9 kg/m2 1 Parity 1 11/03/2018 8:42am BP Systolic 128 mmHg BP Diastolic 66 mmHg Height 64.5 inches 5'4.50" Weight 247.00 lb BMI (Body Mass Index) 41.7 kg/m2 Last Menstrual Period [id number] 1 Parity 1 09/23/2018 2:40pm BP Systolic 128 mmHg BP Diastolic 66 mmHg Height 64.5 inches 5'4.50" Weight 235.00 lb BMI (Body Mass Index) 39.7 kg/m2 Last Menstrual Period 8607387 1 Parity 1 08/19/2018 3:34pm BP Systolic 126 mmHg BP Diastolic 72 mmHg Height 64.5 inches 5'4.50" Weight 242.00 lb BMI (Body Mass Index) 40.9 kg/m2 Last Menstrual Period 7737909 1 Parity 1 08/06/2018 2:13pm BP Systolic 136 mmHg BP Diastolic 82 mmHg Height 64.5 inches 5'4.50" Weight 245.00 lb BMI (Body Mass Index) 41.4 kg/m2 Last Menstrual Period 2192472 1 Parity 1 12/12/2017 1:38pm BP Systolic 112 mmHg BP Diastolic 64 mmHg Height 64.5 inches 5'4.50" Weight 257.00 lb BMI (Body Mass Index) 43.4 kg/m2 Last Menstrual Period 0553104 1 Parity 0 Results Test Date Facility Test Result H/L Range Note Laboratory test 06/19/2018 [facility] Rupture of Positive 1 [place] [address] Membranes [phone] Laboratory test 05/30/2018 [facility] AB Screen NEGATIVE 2 [place] [address] [phone] Laboratory test 05/27/2018 [facility] Genital For GRP SEE RESULT 3 [place] [address] B Strep Only BELOW [phone] Urinalysis 05/10/2018 [facility] [place] [address] [phone] Urine Appearance Cloudy Urine Specific [place] 1.017 N 1.010-1.030 Urine pH 6.0 N [...] Present Abnormal Absent Urine Culture And 05/10/2018 [facility] Urine Culture SEE RESULT 4 [place] [address] BELOW [phone] Urine Culture And 05/09/2018 [facility] Urine Culture SEE RESULT 5 [place] [address] BELOW [phone] Urinalysis Profile 05/03/2018 [facility] [place] [address] [phone] Urine Appearance Cloudy Urine Specific [place] 1.021 N 1.010-1.030 Urine pH 6.0 N [...] Cell Present Abnormal Absent Laboratory test 05/03/2018 [facility] Rupture of Negative 6 [place] [address] Membranes [phone] Urine Culture And 05/03/2018 [facility] Urine Culture SEE RESULT 7 [place] [address] BELOW [phone] Laboratory test 03/25/2018 [facility] Glucose 1 HR 128 mg/dL N 70-1 8 [place] [address] Post Prandial 60 [phone] CBC With No Diff 03/25/2018 [facility] White Blood 15.6 10^3/uL High 3.5- [place] [address] Count 10.8 [phone] Red Blood Count 3.48 10^6/uL Low 4.00-5.40 Hemoglobin 11.3 g/dL Low 12.0-16.0 Hematocrit 33 % Low 35-47 Mean Corpuscular Volume 94 fL N 80-97 Mean Corpuscular Hemoglobin 32 pg High 27-31 Mean Corpuscular HGB Conc 35 g/dL N 31-36 Red Cell Distribution Width 13 % N 10.5-15 Platelet Count 229 10^3/uL N 150-450 Mean Platelet Volume 9.8 um3 N 7.4-10.4 Laboratory test 03/25/2018 [facility] AB Screen NEGATIVE 9 [place] [address] [phone] THC Confirmation 01/09/2018 [facility] Urine Carboxy 120 ng/mL 10 [place] [address] THC Confirm [phone] Urine THC Interpretation Positive. 11 Urine Drug 01/09/2018 [facility] Urine Amphetamine Negative ng/ mL 12 Comp 20 [place] [address] [phone] Urine Barbiturates Negative ng/mL 13 Urine Benzodiazepines Negative ng/mL 14 Urine Cocaine Negative ng/mL 15 Urine Phencyclidine Negative ng/mL Cutoff: 25 Urine Tetrahydrocannabinol Presumptive Posi <SEE NOTE> Abnormal Cutoff: 50 16 ng/mL Creatinine, Urine 269.2 mg/dL Specific [place] 1.020 pH 6.1 Oxidants Negative 17 Adulterants Comment Normal Codeine, Ur Not Detected ng/mL Cutoff: 25 18 Zlvbwrr-5-qpbx-glucuronide, Ur Not Detected ng/mL 19 Morphine, Ur Not Detected ng/mL Cutoff: 25 20 Uckqubgh-1-eivk-glucuronide, U Not Detected ng/mL 21 6-monoacetylmorphine, Ur Not Detected ng/mL Cutoff: 25 22 Hydrocodone, Ur Not Detected ng/mL Cutoff: 25 23 Norhydrocodone, Ur Not Detected ng/mL Cutoff: 25 24 Dihydrocodeine, Ur Not Detected ng/mL Cutoff: 25 25 Hydromorphone, Ur Not Detected ng/mL Cutoff: 25 26 Fkoafqyqolmnr3vgjoflbiyqzuymg Not Detected ng/mL 27 Oxycodone, Ur Not Detected ng/mL Cutoff: 25 28 Noroxycodone, Ur Not Detected ng/mL Cutoff: 25 29 Oxymorphone, Ur Not Detected ng/mL Cutoff: 25 30 Qkglusjoizq-9-pvol-glucuronide Not Detected ng/mL 31 Noroxymorphone, Ur Not Detected ng/mL Cutoff: 25 32 Fentanyl, Ur Not Detected ng/mL Cutoff: 2 33 Norfentanyl, Ur Not Detected ng/mL Cutoff: 2 34 Meperidine, Ur Not Detected ng/mL Cutoff: 25 35 Normeperidine, Ur Not Detected ng/mL Cutoff: 25 36 Naloxone, Ur Not Detected ng/mL Cutoff: 25 37 Vwtqzqgm-4-fanz-glucuronide, U Not Detected ng/mL 38 Methadone, Ur [...] Ur Not Detected ng/mL Cutoff: 50 46 Kaolrrcjao-sdxp-ggjndmynwpc, U Not Detected ng/mL 47 Buprenorphine, Ur Not Detected ng/mL Cutoff: 5 48 Norbuprenorphine, Ur Not Detected ng/mL Cutoff: 5 49 Norbuprenorphine glucuronide Not Detected ng/mL Cutoff: 20 50 Opioid Interpretation See Comment 51 Afp,Screen 01/09/2018 [facility] Results Summary [place] [address] [phone] Neural Tube Defect Estimate SEE BELOW 52 [...] Repeat Testing Initial testing Physician Phone Number [phone] SOPHY by LMP 06/27/18 GA On Collection By Dates SEE BELOW wk,d 53 GA Used In Risk Estimate Dates estimate Afp 35.9 ng/mL Afp MoM 1.51 MoM <2.50 Interpretation See Comment 54 Additional Comments See Comment 55 Recommended Follow Up None. General Test Information See Comment 56 GC/Chlamydia Dna 12/12/2017 [facility] Chlamydia [place] [address] trachomatis Rna [phone] Neisseria gonorrhoeae (GC) Rna Negative Negative Chromosomes 13, 18, 21 12/12/2017 [facility] Chromosome 13 Negative N 57 + Sex Chromosome Aneuploidy Chromosome 18 Aneuploidy Negative N 58 Chromosome 21 Aneuploidy Negative N 59 Sex Chromosome Analysis Female N 60 PDF Report SEE IMAGE PNL No 12/12/2017 [facility] Rubella Screen Immune Immune 61 [place] [address] [phone] Hemoglobin A1c 5.2 % N 4.0-5.6 62 Hepatitis B Surface Ag Nonreactive Nonreactive 63 Syphillis Igg W/Reflex RPR Nonreactive Nonreactive 64 CBC With No 12/12/2017 [facility] White Blood 15.2 10^3/uL High 3.5-10[place]8 [place] [address] Count [phone] Red Blood Count 4.23 10^6/uL N 4.0-5.4 [...] um3 N 7.4-10.4 Type And Screen 12/12/2017 [facility] Patient [place] [address] [phone] Antibody Screen NEGATIVE HIV 1/2 AB 12/12/2017 [facility] HIV 1 2 Nonreactive Nonreactive 65 [place] [address] Antibody [phone] Lead 12/12/2017 [facility] Lead,Venous, < 1.0 g/dL 0.0-4.9 66 [place] [address] B [phone] Submitting Laboratory Phone [phone] Urine Culture And 12/12/2017 [facility] Urine Culture SEE RESULT 68 [place] [address] BELOW [phone] Laboratory test 12/12/2017 [facility] Cytology SEE RESULT 69 [place] [address] BELOW [phone] 1 A POSITIVE result indicates probable membrane rupture. 2 [id number] 3 SEE RESULT BELOW Name: GAMAL ALEXANDRA : [address]: Mariposa Langston MD Acct: [id number] Unit: [id number] AGE: 22 Location: [facility] Re05/27/18 SEX: F Status: REG REF SPEC: [id number] CECILIA: 05/27/18-[address]: Mariposa Langston MD REQ: [id number] RECD: 05/27/18 STATUS: COMP _ SOURCE: KARLI/ANGELINE/RE SPDESC: ORDERED: Pankaj Julio Scrn COMMENTS: [id number] QUERIES: Is Patient Penicillin Allergic? N Is patient penicillin allergic and/or sensitivities needed? N Provider Requisition # [id number]_ Procedure Result Reported Site Group B Strep Culture Screen Final 05/29/18- 1050 ML Group B Strep Screen Negative * ML - Main Lab . END OF REPORT DEPARTMENT OF PATHOLOGY, [address] [place] [address] Edgard Cleveland M.D. Director [facility] # [id number] 4 SEE RESULT BELOW Name: GAMAL ALEXANDRA : [address]: Mariposa Langston MD Acct: [id number] Unit: [id number] AGE: 22 Location: [facility] Re05/10/18 SEX: F Status: DEP REF SPEC: [id number] CECILIA: 05/10/18 [facility] [address]: Mariposa Langston MD REQ: [id number] RECD: 05/10/18 STATUS: SHANICE MCCANN DR: Mavis Primary Care Phys,NOPCP _ SOURCE: URINE SPDESC: ORDERED: Urine Culture Procedure Result Reported Site Urine Culture Final 05/12/18- 0816 ML No growth of clinically significant organisms * ML - Main Lab . END OF REPORT DEPARTMENT OF PATHOLOGY, [address] [place] [address] Edgard Cleveland M.D. Director [facility] # [id number] 5 SEE RESULT BELOW Name: GAMAL ALEXANDRA : [address]: Griselda Dove [facility] Acct: [id number] Unit: [id number] AGE: 22 Location: [facility] Re05/09/18 SEX: F Status: REG REF SPEC: [id number] CECILIA: 05/09/[address]: Griselda Dove [facility] REQ: [id number] RECD: 05/09/18 STATUS: COMP _ SOURCE: URINE SPDESC: ORDERED: Urine Culture COMMENTS: [id number] Urine Source: Random Procedure Result Reported Site Urine Culture Final 05/11/18- 0250 ML No growth of clinically significant organisms * ML - Main Lab . END OF REPORT DEPARTMENT OF PATHOLOGY, [address] [place] [address] Edgard Cleveland M.D. Director [facility] # [id number] 6 A NEGATIVE results indicates there is no evidence of membrane rupture. 7 SEE RESULT BELOW Name: GAMAL ALEXANDRA : [address]: Luisana Tse MD Acct: [id number] Unit: [id number] AGE: 22 Location: [facility] Re05/03/18 SEX: F Status: DEP REF SPEC: [id number] CECILIA: 05/03/18 [facility] [address]: Luisana Tse MD REQ: [id number] RECD: 05/03/18 STATUS: SHANICE MCCANN DR: Mavis Primary Care Phys,NOP _ SOURCE: URINE SPDESC: ORDERED: Urine Culture Procedure Result Reported Site Urine Culture Final 05/05/18- 709 ML No growth of clinically significant organisms * ML - [facility] . END OF REPORT DEPARTMENT OF PATHOLOGY, [address] [place] [address] Edgard Cleveland M.D. Director [facility] # [id number] 8 [id number] 10 REFERENCE VALUE Cutoff: 3.0 11 ADDITIONAL INFORMATION This report is intended for use in clinical monitoring and management of patients. It is not intended for use in employment-related testing. This test was developed and its performance characteristics determined by [facility] in a manner consistent with CLIA requirements. This test has not been cleared or approved by the U.S. Food and Drug Administration. Test Performed by: [facility] - [facility] [address] [place] [address] 12 REFERENCE VALUE Cutoff: 500 13 REFERENCE [...] 100 22 Metabolite of heroin 23 Lortab, [place], Vicodin; Also a very minor metabolite of [...] its performance characteristics determined by [facility] in a manner consistent with CLIA requirements. This test has not been cleared or approved by the U.S. Food and Drug Administration. Test Performed by: [facility] [address] [place] [address] 52 RESULT: 53 RESULT: , 54 RESULT: Screen negative for neural tube [...] its performance characteristics determined by [facility] in a manner consistent with CLIA requirements. This test has not been cleared or approved by the U.S. Food and Drug Administration. Test Performed by: [facility] [place] [address] [place] [address] 57 No aneuploidy detected. 58 No aneuploidy detected. 59 No aneuploidy detected. 60 Female: No aneuploidy detected. 61 [id number] 62 Therapeutic target for the treatment of diabetes mellitus patients is <7% HBA1C, and in selective patients <6.0%. Please refer to [place] [employer] diabetic care guidelines for further information. 63 [id number] 64 Warning: A positive result is not [...] its performance characteristics determined by [facility] in a manner consistent with CLIA requirements. This test has not been cleared or approved by the U.S. Food and Drug Administration. 67 Test Performed by: [facility] [address] [place] [address] 68 SEE RESULT BELOW Name: GAMAL ALEXANDRA : [address]: Betsy Diallo CNM Acct: [id number] Unit: [id number] AGE: 22 Location: [facility] Re12/12/17 SEX: F Status: REG REF SPEC: [id number] CECILIA: 12/12/178428 [facility] DR: Betsy Diallo CNM REQ: [id number] RECD: 12/12/17-1661 STATUS: COMP _ SOURCE: URINE SPDESC: ORDERED: Urine Culture COMMENTS: [id number] Urine Source: Random Procedure Result Reported Site Urine Culture Final 12/14/17- 85 ML No growth of clinically significant organisms * ML - Main Lab . END OF REPORT DEPARTMENT OF PATHOLOGY, [address] [place] [address] Edgard Cleveland M.D. Director [facility] # [id number] 69 SEE RESULT BELOW Name: GAMAL ALEXANDRA : [address]: Betsy Diallo [facility] Acct: [id number] Unit: [id number] AGE: 22 Location: [facility] Re12/12/17 SEX: F Status: REG REF SPEC: [id number] CECILIA: 12/12/17-15[address] [facility] [address]: Betsy Diallo [facility] REQ: [id number] RECD: 12/13/17 STATUS: SOUT _ ORDERED: TP IMAGE ANALYS COMMENTS: [id number] Negative for Intraepithelial lesion or Malignancy A. [...] was evaluated with the assistance of the [employer] Test Imaging System. Due to cytologic findings at the piercer microscope, comprehensive manual rescreening by a [employer] may be required. The Pap Smear is [...] years. END OF REPORT DEPARTMENT OF PATHOLOGY, [address] [place] [address] Edgard Cleveland M.D. Director [facility] # [id number] Procedures Date Code Description Status 11/04/2018 69663 Echography Transvaginal Completed 08/19/2018 39269 Insert Intrauterine Device Completed 06/19/2018 25385 Obstetric Care Routine Completed 05/30/2018 17593 Injection Intramuscular Or Subcutaneous Completed 05/13/2018 42963 Biophysical Profile Without Non Stress Test Completed 05/13/2018 44338 Echography Uterus Follow-Up Or Repeat Completed 05/10/2018 53565 Non-Stress Test Completed 04/15/2018 35322 Echography Uterus Follow-Up Or Repeat Completed 02/11/2018 16644 Echography Uterus Follow-Up Or Repeat Completed 12/12/2017 37785 OB Ultrasound First Trimester Completed Encounters Type Date Location Provider Dx Diagnosis Office Visit 11/03/2018 [facility] Luisana Tse, R10.2 Pelvic and perineal 8:45a MD pain Office Visit 09/23/2018 [facility] Luisana Tse, Z30.431 Encounter for routine 2:45p checking of intrauterine contracep dev Office Visit 05/10/2018 [facility] Mariposa Langston MD O16.3 Unspecified maternal 9:00a hypertension, third trimester Plan of Treatment 11/03/2018 - Luisana Tse, MDR10.2 Pelvic and perineal painComments: test negative but due to pt's new onset of sxms will schedule sono in the next day or so to check placement. Discussed that if it is low-lying we would likely need to replace it because it may not be as effective.
[2019-01-20 22:02] VITALS: BP 111/59
[2019-01-20] MEDS ORDERED: Acetaminophen TAB* 325 MG PO ONE (22:16)
--- NOTE | 2019-01-20 22:16 | UC ---
Head Injury HPI - HPI Summary HPI Summary: 23-year-old female with a chief complaint of head injury. Just prior to arrival while at work she stood up and hit the top of her head just left of center on an open cabinet door. She had immediate pain she had some nausea. She feels like her left vision is blurry compared to the right and she's got ringing in her left ear. Denies any neck pain. No difficulty with speech no weakness or numbness. - History Of Current Complaint Chief Complaint: UCHeadInjury Stated Complaint: BUMPED HEAD Time Seen by Provider: 01/20/19 21:32 Hx Last Menstrual Period: today Pain Intensity: 9 - Allergies/Home Medications Allergies/Adverse Reactions: Allergies Allergy/AdvReac Type Severity Reaction Status Date / Time Penicillins Allergy Anaphylatic Verified 01/20/19 22:27 Shock Home Medications: Home Medications Levonorgestrel (Iud) [Mirena IUD] 20 mcg IU DAILY 01/20/19 [History Confirmed ] PMH/Surg Hx/FS Hx/Imm Hx Previously Healthy: Yes Other History Of: Negative For: HIV, Hepatitis B, Hepatitis C, Anticoagulant Therapy - Surgical History Surgical History: Yes Surgery Procedure, Year, and Place: Tonsillectomy age 5, catheter ablation June 2012 at [place], 3 CARDIAC ABLATION NOVEMBER 2009. gallbladder surgery september 2018 - Family History Known Family History: Positive: Renal Disease - kidney stone Negative: Cardiac Disease, Hypertension, Diabetes - Social History Alcohol Use: Occasionally Substance Use Type: Marijuana Smoking Status (MU): Light Every Day Tobacco Smoker Type: Cigarettes Amount Used/How Often: 1/2 ppd Length of Time of Smoking/Using Tobacco: 2 years Have You Smoked in the Last Year: No Household Exposure Type: Cigarettes - Immunization History Most Recent Influenza Vaccination: 06/10/18 Most Recent Pneumonia Vaccination: Unknown Vaccination Up to Date: Yes Review of Systems All Other Systems Reviewed And Are Negative: Yes Constitutional: Positive: Negative Skin: Positive: Negative Eyes: Positive: Blurred Vision ENT: Positive: Other - SEE HPI Respiratory: Positive: Negative Cardiovascular: Positive: Negative Gastrointestinal: Positive: Nausea Motor: Positive: Negative Neurovascular: Positive: Negative Musculoskeletal: Positive: Negative Neurological: Positive: Headache Psychological: Positive: Negative Is Patient Immunocompromised?: No Physical Exam Triage Information Reviewed: Yes Appearance: Well-Appearing, No Pain Distress, Well-Nourished Vital Signs: Initial Vital Signs Temp 98.7 F 01/20/19 21:59 Pulse 92 01/20/19 21:59 Resp 18 01/20/19 21:59 BP 111/59 01/20/19 21:59 Pulse Ox 97 01/20/19 21:59 Vital Signs Reviewed: Yes Eye Exam: Normal Eyes: Positive: Conjunctiva Clear, Other: - PERRLA/EOMI. MILD PHOTOPHOBIA. ENT: Positive: TMs normal - NO HEMOTYMPANUM, Other - TENDERNESS TO PALPATION LEFT ANTERIOR PARIETAL SCALP. NO CREPITUS.. Negative: Nasal congestion Neck: Positive: Supple, Nontender Respiratory: Positive: Lungs clear, Normal breath sounds, No respiratory distress Cardiovascular: Positive: RRR Musculoskeletal: Positive: Strength Intact, ROM Intact Neurological: Positive: Alert, Muscle Tone Normal Psychological Exam: Normal Psychological: Positive: Age Appropriate Behavior Skin Exam: Normal Head Injury Course/Dx - Course Course Of Treatment: CT Head Without Contrast EXAM DATE/TIME: 01/20/2019 9:45 PM CLINICAL HISTORY: 23 years old, female; Headache; Cluster; Patient HX: Left sided superior head pain after hitting head on cabinet today. Left eye blurriness and head with mild dizziness. ; Additional info: Struck head; Blurred vision TECHNIQUE: Imaging protocol: Axial computed tomography images of the head without contrast. Radiation optimization: All CT scans at this facility use at least one of these dose optimization techniques: automated exposure control; mA and/or kV adjustment per patient size (includes targeted exams where dose is matched to clinical indication); or iterative reconstruction. COMPARISON: BRAIN WO CT BRAIN WO 03/17/2015 8:52 PM FINDINGS: Brain: No acute ischemic changes, extra axial fluid collections, intraparenchymal hemorrhage, or midline shift. Ventricles: Normal. No ventriculomegaly. Bones/joints: Normal. No acute fracture. Sinuses: Visualized sinuses are normal. No acute sinusitis. Mastoid air cells: Visualized mastoid air cells are normal. No mastoid effusion. Soft tissues: Normal. IMPRESSION: Normal noncontrast head CT. To contact [facility] with a general question: [facility] - [phone] For direct physician to physician contact: Physician Hotline - [phone] [facility] ([facility] Facility ID #[id number]) End of Report Content Attending Doctor: Miguel A Kent ([id number]) Otr Owner Operator Truck Driver: Yodit Borjas ([id number]) Engineering And Development Director: BARRIE . (VRAD) Report Date: 01/20/2019 21:33:00 Report Status: Final Begin of Report Content Patient Name: GAMAL HOWE Medical Record#: [id number] Ordering Physician: Miguel A Kent MD Acct.#: [id number] : 1995 Age: 23 Sex: F Location: [facility] Exam Date: 01/20/192132 ADM Status: [facility] Order Information: CT BRAIN WO Accession Number: [id number] CPT: 89432 EXAM: CT Head Without Contrast EXAM DATE/TIME: 01/20/2019 9:45 PM CLINICAL HISTORY: 23 years old, female; Headache; Cluster; Patient HX: Left sided superior head pain after hitting head on cabinet today. Left eye blurriness and head with mild dizziness. ; Additional info: Struck head; Blurred vision TECHNIQUE: Imaging protocol: Axial computed tomography images of the head without contrast. Radiation optimization: All CT scans at this facility use at least one of these dose optimization techniques: automated exposure control; mA and/or kV adjustment per patient size (includes targeted exams where dose is matched to clinical indication); or iterative reconstruction. COMPARISON: BRAIN WO CT BRAIN WO 03/17/2015 8:52 PM FINDINGS: Brain: No acute ischemic changes, extra axial fluid collections, intraparenchymal hemorrhage, or midline shift. Ventricles: Normal. No ventriculomegaly. Bones/joints: Normal. No acute fracture. Sinuses: Visualized sinuses are normal. No acute sinusitis. Mastoid air cells: Visualized mastoid air cells are normal. No mastoid effusion. Soft tissues: Normal. IMPRESSION: Normal noncontrast head CT. To contact [facility] with a general question: Operations Center - [phone] For direct physician to physician contact: Physician Hotline - [phone] [facility] (ad Facility ID #[id number]) <Electronically signed by Yodit Borjas MD in OV> 01/20/192219 I discussed the CT report with the patient that her . Patient still having pain and does feel tired and is having a feeling of swelling in her left face. Patient can take acetaminophen or ibuprofen as needed. If her symptoms persist at all she's can follow-up with sports medicine if they worsen she's having get reevaluated in the emergency department. - Differential Dx/Diagnosis Provider Diagnosis: Head injury, Concussion Discharge - Sign-Out/Discharge Documenting (check all that apply): Patient Departure All imaging exams completed and their final reports reviewed: Yes - Discharge Plan Condition: Stable Disposition: HOME Patient Education Materials: Concussion (ED), Head Injury (ED) Forms: *Work Release Referrals: [facility] [Provider Group] Additional Instructions: FOLLOW UP WITH SPORTS MEDICINE IF NOT COMPLETELY IMPROVED. GET RECHECKED SOONER IF YOUR CONDITION WORSENS; WEAKNESS, NUMBNESS, DIFFICULTY WITH VISION OR SPEECH OR ANY QUESTIONS OR CONCERNS. - Billing Disposition and Condition Condition: STABLE Disposition: Home
== END 2019-01-20 22:35 | disposition home or self-care (01) ==
LOC: UCEAST 21:03
DX: S06.0X9A Concussion with loss of consciousness of unspecified duration, initial encounter (principal); W22.8XXA Striking against or struck by other objects, initial encounter; Y92.010 Kitchen of single-family (private) house as the place of occurrence of the external cause; F17.210 Nicotine dependence, cigarettes, uncomplicated; Z88.0 Allergy status to penicillin
CPT/HCPCS: 70450; 99212; A9270-GY; G0463

== ENCOUNTER 2019-02-01 23:50 | Emergency (ER) | payer BC ==
[2019-02-01 23:59] VITALS: BP 121/99
--- NOTE | 2019-02-02 01:52 | ED ---
Abdominal Pain/Female - HPI Summary HPI Summary: This pt is a 23 y/o F presenting to [facility] with her boyfriend and a CC of cramping and suprapubic abdominal pain lasting since November. Pt states that she didnt have a period for 3 months since August then she had it for about a month and half and she started bleeding 2 weeks ago. The bleeding has been persistent for the past 2 weeks. Stated that it felt normal but with more intense cramping that were aggravated by BM and urinating. She recently went to Urgent care and received a test which showed negative. She denies tenderness to the touch, N/V/D, fever, diaphoresis, CP, and SOB. She has no alleviating factors. She states that she recently got another IUD placed and has been having more symptomatic issues with this one than her prior one. She has a Hx of not being positive with tests for a couple months after conceiving. The last time she was it took her 4 months to show. - History of Current Complaint Chief Complaint: Sarahin Stated Complaint: ABD PAIN PER PT Time Seen by Provider: 02/02/19 01:39 Hx Obtained From: Patient Hx Last Menstrual Period: today Onset/Duration: Gradual Onset - Has been ongoing since November, Still Present Timing: Constant Severity Initially: Moderate Severity Currently: Moderate Pain Intensity: 6 Pain Scale Used: 0-10 Numeric Location: Suprapubic Radiates: No Character: Cramping Aggravating Factor(s): Other: - BMs and Urination Alleviating Factor(s): Nothing Associated Signs and Symptoms: Positive: Negative - SOB, Urinary Symptoms - increased pain during urination, Vaginal Bleeding. Negative: Diaphoresis, Fever , Chest Pain, Nausea, Vomiting, Diarrhea Allergies/Adverse Reactions: Allergies Allergy/AdvReac Type Severity Reaction Status Date / Time Penicillins Allergy Anaphylatic Verified 02/01/19 23:53 Shock PMH/Surg Hx/FS Hx/Imm Hx Previously Healthy: No Endocrine/Hematology History: Denies: Hx Anticoagulant Therapy, Hx Diabetes, Hx Thyroid Disease Cardiovascular History: Reports: Hx Hypertension - not on meds Denies: Hx Congestive Heart Failure, Hx Deep Vein Thrombosis, Hx Myocardial Infarction, Hx Pacemaker/ICD Comment Only: Other Cardiovascular Problems/Disorders - HEART ABLATION , SINUS TACHYCARDIA, [id number] SYDROME Respiratory History: Denies: Hx Asthma, Hx Chronic Obstructive Pulmonary Disease (COPD), Hx Lung Cancer, Hx Pneumonia, Hx Pulmonary Embolism GI History: Denies: Hx Gall Bladder Disease, Hx Gastrointestinal Bleed, Hx Ulcer, Hx Urosepsis History: Denies: Hx Kidney Stones, Hx Renal Disease Sensory History: Denies: Hx Eye Prosthesis, Hx Legally Blind, Hx Deafness Opthamlomology History: Denies: Hx Eye Prosthesis, Hx Legally Blind Neurological History: Denies: Hx Dementia, Hx Migraine, Hx Seizures, Hx Transient Ischemic Attacks (TIA) Psychiatric History: Denies: Hx Anxiety, Hx Depression, Hx Schizophrenia, Hx Bipolar Disorder - Surgical History Surgery Procedure, Year, and Place: Tonsillectomy age 5, catheter ablation June 2012 at [place], 3 CARDIAC ABLATION NOVEMBER 2009. gallbladder surgery september 2018 - Immunization History Date of Tetanus Vaccine: Up to date Date of Influenza Vaccine: None Immunizations Up to Date: Yes Infectious Disease History: No Infectious Disease History: Denies: Hx Clostridium Difficile, Hx Hepatitis, Hx Human Immunodeficiency Virus (HIV), History Other Infectious Disease, Traveled Outside the [place] in Last 30 Days - Family History Known Family History: Positive: Renal Disease - kidney stone Negative: Cardiac Disease, Hypertension, Diabetes - Social History Occupation: Employed Full-time Lives: With Family Alcohol Use: Occasionally Hx Substance Use: No Substance Use Type: Reports: None, Marijuana Hx Tobacco Use: Yes Smoking Status (MU): Light Every Day Tobacco Smoker Type: Cigarettes Amount Used/How Often: 1/2 ppd Length of Time of Smoking/Using Tobacco: 2 years Have You Smoked in the Last Year: No Review of Systems Negative: Fever, Skin Diaphoresis Negative: Chest Pain Negative: Shortness Of Breath Positive: Abdominal Pain - suprapubic and described as cramping. Negative: Vomiting, Diarrhea, Nausea All Other Systems Reviewed And Are Negative: Yes Physical Exam - Summary Physical Exam Summary: Appearance: Well-appearing, Well-nourished, lying in bed comfortably Skin: Warm, dry, no obvious rash Eyes: sclera anicteric, no conjunctival pallor ENT: mucous membranes moist, pharynx appears normal Neck: Supple, nontender Respiratory: Clear to auscultation, no signs of respiratory distress Cardiovascular: Normal S1, S2. No murmurs. Normal distal pulses in tibial and radial bilaterally. Abdomen: Soft, nontender, normal active bowel sounds present Musculoskeletal: Normal, Strength/ROM Intact Neurological: A&Ox3, awake and alert, mentation is normal, speech is fluent and appropriate Psychiatric: affect is normal, does not appear anxious or depressed Triage Information Reviewed: Yes Vital Signs On Initial Exam: Initial Vitals Temp Pulse Resp BP Pulse Ox 97.1 F 98 15 121/99 100 02/01/19 23:51 02/01/19 23:51 02/01/19 23:51 02/01/19 23:51 02/01/19 23:51 Vital Signs Reviewed: Yes Diagnostics - Vital Signs Vital Signs Temp Pulse Resp BP Pulse Ox 02/01/19 23:51 97.1 F 98 15 121/99 100 - Laboratory Result Diagrams: 02/02/19 02:13 02/02/19 02:13 Lab Statement: Any lab studies that have been ordered have been reviewed, and results considered in the medical decision making process. Abdominal Pain Fem Course/Dx - Course Course Of Treatment: This pt is a 23 y/o F presenting to [facility] with her boyfriend and a CC of intense cramping and abdominal pain lasting since November. Pt states that she didnt have a period for 3 months since August then she had it for about a month and half and she started bleeding 2 weeks ago. She had no abnormal findings on her PE. She had no abnormal lab values. Due to her unremarkable labs the pt will be discharged home with a Dx of pelvic pain. - Diagnoses Provider Diagnoses: Pelvic pain Discharge - Sign-Out/Discharge Documenting (check all that apply): Patient Departure - discharge Patient Received Moderate/Deep Sedation with Procedure: No - Discharge Plan Condition: Good Disposition: HOME Patient Education Materials: Dysfunctional Uterine Bleeding (ED), Pelvic Pain in Women (ED) Forms: *Work Release Referrals: No Primary Care Phys,NOPCP [Primary Care Provider] - Additional Instructions: Your blood test was negative, so you do not have to worry about an ectopic . Contact your ob/gyn doctor in the am for followup, they will probably want to get you in for a pelvic ultrasound test soon. - Billing Disposition and Condition Condition: GOOD Disposition: Home - Attestation Statements Document Initiated by Scribe: Yes Documenting Scribe: Titi Benoit Provider For Whom Scribe is Documenting (Include Credential): Varun Lugo MD Scribe Attestation: Titi Esteves, scribed for Varun Lugo MD on 02/02/19 at 2156. Scribe Documentation Reviewed: Yes Provider Attestation: The documentation as recorded by the Titi chávez accurately reflects the service I personally performed and the decisions made by me, Varun Lugo MD Status of Scribe Document: Viewed
[2019-02-02 02:19] LABS: ABS Basophils 0.1 10^3/ul (0-0.2); ABS Eosinophils 0.3 10^3/ul (0-0.6); ABS Lymphocytes 4.4 10^3/ul (1.0-4.8); ABS Monocytes 0.8 10^3/ul (0-0.8); ABS Neutrophils 5.8 10^3/ul (1.5-7.7); Eosinophil % 2.5 %; Hematocrit 39 % (35-47); Hemoglobin 13.2 g/dL (12.0-16.0); Lymphocyte % 38.6 %; Mean Corpuscular HGB Conc 34 g/dL (31-36); Mean Corpuscular Hemoglobin 32 pg (27-31); Mean Corpuscular Volume 93 fL (80-97); Mean Platelet Volume 9.4 fL (7.4-10.4); Nucleated Red Blood Cells % 0.1; Platelet Count 235 10^3/uL (150-450); Red Blood Count 4.17 10^6 /uL (3.70-4.87); Red Cell Distribution Width 13 % (10-15); White Blood Count 11.3 10^3/uL (3.5-10.8)
[2019-02-02 02:36] LABS: ALT 28 U/L (7-52); AST 19 U/L (13-39); Albumin 4.4 g/dL (3.2-5.2); Albumin/Globulin Ratio 1.9 (1-3); Alkaline Phosphatase 80 U/L (34-104); Anion Gap 6 mmol/L (2-11); BUN/Creatinine Ratio 19.4 (8-20); Blood Urea Nitrogen 13 mg/dL (6-24); CO2 Carbon Dioxide 25 mmol/L (22-32); Calcium 9.3 mg/dL (8.6-10.3); Chloride 106 mmol/L (101-111); EGFR African American 133.2 (>60); EGFR Non-African American 110.1 (>60); Globulin 2.3 g/dL (2-4); Glucose 102 mg/dL (70-100); Sodium 137 mmol/L (135-145); Total Protein 6.7 g/dL (6.4-8.9)
[2019-02-02 02:43] LABS: HCG Pregnancy < 0.60 mIU/mL
[2019-02-02 03:39] LABS: Urine Appearance Cloudy; Urine Bilirubin Negative (Negative); Urine Blood Negative (Negative); Urine Color Yellow; Urine Glucose Negative (Negative); Urine Ketones Negative (Negative); Urine Nitrite Negative (Negative); Urine Protein Negative (Negative); Urine Urobilinogen Negative (Negative)
== END 2019-02-02 04:39 | disposition home or self-care (01) ==
LOC: ED 23:50
DX: R10.2 Pelvic and perineal pain (principal); Z88.0 Allergy status to penicillin; F17.210 Nicotine dependence, cigarettes, uncomplicated
CPT/HCPCS: 36415; 80053; 81003; 84702; 85025; 99283

== ENCOUNTER 2019-03-03 16:53 | Emergency (ER) | payer BC ==
[2019-03-03 17:19] LABS: ABS Eosinophils 0.2 10^3/ul (0-0.6); ABS Lymphocytes 3.3 10^3/ul (1.0-4.8); ABS Monocytes 0.7 10^3/ul (0-0.8); ABS Neutrophils 6.2 10^3/ul (1.5-7.7); Eosinophil % 1.8 %; Hematocrit 44 % (35-47); Lymphocyte % 31.7 %; Mean Corpuscular HGB Conc 34 g/dL (31-36); Mean Corpuscular Hemoglobin 32 pg (27-31); Mean Corpuscular Volume 93 fL (80-97); Mean Platelet Volume 9.3 fL (7.4-10.4); Nucleated Red Blood Cells % 0.1; Platelet Count 232 10^3/uL (150-450); Red Blood Count 4.69 10^6 /uL (3.70-4.87); Red Cell Distribution Width 13 % (10-15); White Blood Count 10.4 10^3/uL (3.5-10.8)
[2019-03-03 17:27] LABS: INR 1.03 (0.82-1.09)
--- NOTE | 2019-03-03 17:28 | ED ---
HPI Chest Pain - HPI Summary HPI Summary: The patient is a 23 y/o F presenting to [facility] accompanied by boyfriend with a chief complaint of sudden onset CP a few hours ago. She reports that she was at work walking when the pain started in the mid-sternal/left anterior chest, described as a heaviness rated 8/10 in severity. At the time of onset, she had tinnitus and lightheadedness. She denies SOB, cough, nausea, diaphoresis, syncope, or edema. She hasnt gone on any recent long travels. She was using the Mirena IUD which was taken out a few weeks ago. She has recently been more stressed than usual, but she denies any diet changes. PMHx: Vito-Parkinson- White syndrome, tachycardia, cholecystectomy. No FHx of blood clots. Light every day cigarette smoker, occasional EtOH, marijuana use. Medications reviewed. Allergies reviewed. - History of Current Complaint Chief Complaint: EDChestPainROMI Time Seen by Provider: 03/03/19 17:19 Hx Obtained From: Patient Hx Last Menstrual Period: today Onset/Duration: Started Hours Ago, Still Present Timing: Lasting Hours Initial Severity: Mild Current Severity: Moderate Pain Intensity: 8 Pain Scale Used: 0-10 Numeric Chest Pain Location: Mid Sternal, Left Anterior Chest Pain Radiates: No Character: Heaviness Aggravating Factor(s): Nothing Alleviating Factor(s): Nothing Associated Signs and Symptoms: Positive: Chest Pain, Recent Stress, Lightheadedness, Nausea. Negative: Shortness of Breath, Diaphoresis, Cough, Edema - Allergy/Home Medications Allergies/Adverse Reactions: Allergies Allergy/AdvReac Type Severity Reaction Status Date / Time Penicillins Allergy Anaphylatic Verified 02/01/19 23:53 Shock PMH/Surg Hx/FS Hx/Imm Hx Endocrine/Hematology History: Denies: Hx Anticoagulant Therapy, Hx Diabetes, Hx Thyroid Disease Cardiovascular History: Reports: Hx Hypertension - not on meds Denies: Hx Congestive Heart Failure, Hx Deep Vein Thrombosis, Hx Myocardial Infarction, Hx Pacemaker/ICD Comment Only: Other Cardiovascular Problems/Disorders - HEART ABLATION , SINUS TACHYCARDIA, [id number] SYDROME Respiratory History: Denies: Hx Asthma, Hx Chronic Obstructive Pulmonary Disease (COPD), Hx Lung Cancer, Hx Pneumonia, Hx Pulmonary Embolism GI History: Denies: Hx Gall Bladder Disease, Hx Gastrointestinal Bleed, Hx Ulcer, Hx Urosepsis History: Denies: Hx Kidney Stones, Hx Renal Disease Sensory History: Denies: Hx Eye Prosthesis, Hx Legally Blind, Hx Deafness Opthamlomology History: Denies: Hx Eye Prosthesis, Hx Legally Blind Neurological History: Denies: Hx Dementia, Hx Migraine, Hx Seizures, Hx Transient Ischemic Attacks (TIA) Psychiatric History: Denies: Hx Anxiety, Hx Depression, Hx Schizophrenia, Hx Bipolar Disorder - Surgical History Surgery Procedure, Year, and Place: Tonsillectomy age 5, catheter ablation June 2012 at [place], 3 CARDIAC ABLATION NOVEMBER 2009. gallbladder surgery september 2018 - Immunization History Date of Tetanus Vaccine: Up to date Date of Influenza Vaccine: None Infectious Disease History: No Infectious Disease History: Denies: Hx Clostridium Difficile, Hx Hepatitis, Hx Human Immunodeficiency Virus (HIV), History Other Infectious Disease, Traveled Outside the [place] in Last 30 Days - Family History Known Family History: Positive: Renal Disease - kidney stone Negative: Cardiac Disease, Hypertension, Diabetes - Social History Alcohol Use: Occasionally Hx Substance Use: No Substance Use Type: Reports: None, Marijuana Hx Tobacco Use: Yes Smoking Status (MU): Light Every Day Tobacco Smoker Type: Cigarettes Amount Used/How Often: 1/2 ppd Length of Time of Smoking/Using Tobacco: 2 years Have You Smoked in the Last Year: No Review of Systems Negative: Skin Diaphoresis Positive: Other - tinnitus Positive: Chest Pain - mid-sternal/left anterior heaviness Negative: Shortness Of Breath, Cough Negative: Nausea Negative: Edema Neurological: Other - lightheadedness All Other Systems Reviewed And Are Negative: Yes Physical Exam - Summary Physical Exam Summary: Constitutional: Well-developed, Well-nourished, Alert. (-) Distressed Skin: Warm, Dry HENT: Normocephalic; Atraumatic Eyes: Conjunctiva normal Neck: Musculoskeletal ROM normal neck. (-) JVD, (-) Stridor, (-) Tracheal deviation Cardio: Rhythm regular, rate normal, Heart sounds normal; Intact distal pulses; The pedal pulses are 2+ and symmetric. Radial pulses are 2+ and symmetric. (-) Murmur Pulmonary/Chest wall: Effort normal. (-) Respiratory distress, (-) Wheezes, (-) Rales Abd: Soft, (-) tenderness, (-) Distension, (-) Guarding, (-) Rebound Musculoskeletal: Good pulses bilaterally in radius, No calf tenderness, No venous cords, No pain with dorsiflexion of foot. (-) Edema Lymph: (-) Cervical adenopathy Neuro: Alert, Oriented x3 Psych: Mood and affect Normal Triage Information Reviewed: Yes Vital Signs On Initial Exam: Initial Vitals Temp Pulse Resp BP Pulse Ox 96.8 F 83 18 136/68 99 03/03/19 17:01 03/03/19 17:01 03/03/19 17:01 03/03/19 17:01 03/03/19 17:01 Vital Signs Reviewed: Yes Diagnostics - Vital Signs Vital Signs Temp Pulse Resp BP Pulse Ox 03/03/19 17:01 96.8 F 83 18 136/68 99 - Laboratory Lab Results: Lab Results 03/03/19 Range/Units 17:11 WBC 10.4 (3.5-10.8) 10^3/uL RBC 4.69 (3.70-4.87) 10^6 /uL Hgb 15.0 (12.0-16.0) g/dL Hct 44 (35-47) % MCV 93 (80-97) fL MCH 32 H (27-31) pg MCHC 34 (31-36) g/dL RDW 13 (10-15) % Plt Count 232 (150-450) 10^3/uL MPV 9.3 (7.4-10.4) fL Neut % (Auto) 59.8 % Lymph % (Auto) 31.7 % Borden % (Auto) 6.3 % Eos % (Auto) 1.8 % Baso % (Auto) 0.4 % Absolute Neuts (auto) 6.2 (1.5-7.7) 10^3/ul Absolute Lymphs (auto) 3.3 (1.0-4.8) 10^3/ul Absolute Monos (auto) 0.7 (0-0.8) 10^3/ul Absolute Eos (auto) 0.2 (0-0.6) 10^3/ul Absolute Basos (auto) 0.0 (0-0.2) 10^3/ul Absolute Nucleated RBC 0.0 10^3/ul Nucleated RBC % 0.1 Result Diagrams: 03/03/19 17:11 03/03/19 17:11 Lab Statement: Any lab studies that have been ordered have been reviewed, and results considered in the medical decision making process. - Radiology CXR Radiology Interpretation Completed By: Radiologist Summary of Radiographic Findings: Impression: No active cardiopulmonary disease is noted. ED physician has reviewed this report. - EKG 1656 Cardiac Rate: NL - 77 bpm EKG Rhythm: Sinus Rhythm Summary of EKG Findings: NSR at [address] segment changes. Shortened OK interval. Delta wave present. Re-Evaluation - Re-Evaluation First Eval Re-Evaluation Time: 18:15 Comment: We discussed results and discharge home. Chest Pain Course/Dx - Course Course Of Treatment: Patient is here with chest pain that is nonexertional in nature. Patient's chest pain is atypical for ACS and she is overall a young, healthy person. Patient is a history of [id number] which was obvious on her EKG but she was not any arrhythmia here. Patient had negative chest section. Patient blood work performed. Patient was told to call her women specialist for follow-up. - Diagnoses Provider Diagnoses: Chest pain, Jjdhc-Pymxpixha-Raebi syndrome Discharge - Sign-Out/Discharge Documenting (check all that apply): Patient Departure - Patient will be discharged home. Patient Received Moderate/Deep Sedation with Procedure: No - Discharge Plan Condition: Stable Disposition: HOME Prescriptions: hydrOXYzine pamoate [Vistaril] 25 mg PO Q8HR PRN #10 cap PRN Reason: Anxiety Patient Education Materials: Chest Pain (DC) Forms: *Work Release Referrals: [facility] PHYSICIAN REFERRAL [Outside] - 3 Days Additional Instructions: Follow up with your primary care provider in 2-3 days. RETURN TO THE EMERGENCY DEPARTMENT FOR ANY NEW OR WORSENING SYMPTOMS. - Billing Disposition and Condition Condition: STABLE Disposition: Home - Attestation Statements Document Initiated by Lacieibe: Yes Documenting Scribe: Crystal Lou Provider For Whom Tammie is Documenting (Include Credential): Dr. Phani Stantno MD Scribe Attestation: Crystal Esteves scribed for Dr. Phani Stanton MD on 03/03/19 at 1842. Scribe Documentation Reviewed: Yes Provider Attestation: The documentation as recorded by the Crystal chávez accurately reflects the service I personally performed and the decisions made by me, Dr. Phani Stanton MD Status of Scribe Document: Viewed
[2019-03-03 17:33] LABS: Albumin 4.7 g/dL (3.2-5.2); Anion Gap 9 mmol/L (2-11); CO2 Carbon Dioxide 24 mmol/L (22-32); Calcium 9.2 mg/dL (8.6-10.3); Chloride 105 mmol/L (101-111); Potassium 4.2 mmol/L (3.5-5.0); Sodium 138 mmol/L (135-145)
[2019-03-03 17:39] LABS: ALT 29 U/L (7-52); AST 22 U/L (13-39); Albumin/Globulin Ratio 1.7 (1-3); Alkaline Phosphatase 94 U/L (34-104); BUN/Creatinine Ratio 13.7 (8-20); Blood Urea Nitrogen 10 mg/dL (6-24); EGFR African American 120.6 (>60); EGFR Non-African American 99.7 (>60); Globulin 2.7 g/dL (2-4); Glucose 87 mg/dL (70-100); Total Protein 7.4 g/dL (6.4-8.9)
--- OUTSIDE RECORDS SUMMARY | 2019-03-03 17:42 | XMS REPORT | Continuity of Care Document ---
:1995 External Reference #:[id number] Author Name Mariposa Langston MD Address [address] [place] [place] [address] Care Team Providers Name Role Phone Mariposa Langston MD Care Team Information Judicial Assistant Unavailable Payers Date Identification Numbers Payment Provider Subscriber Policy Number: [id number] [employer]/BS [facility] Gamal Alexandra PayID: [id number] [address] [address] [place] [address] Problems Active Problems Provider Date Primigravida Betsy Diallo CNM Onset: 12/12/2017 Body mass index 40+ - severely obese Betsy Diallo CNM Onset: 12/12/2017 Qeapu-Ppcyjlbkl-Ougsp pattern Betsy Diallo CNM Onset: 03/22/2018 Note: Followed by cardiology Pelvic and perineal pain [place] Ackerman M.D. Onset: 02/11/2019 Galactorrhea Luisana Tse MD Onset: 02/11/2019 Family History Date Family Member(s) Observation Comments [...] a day Smoker or less ETOH Use Denies alcohol use Recreational Drug Use Sporadically uses Marijuana Tobacco Use Start: Unknown Patient is a current smoker, smokes every day Smoking Status Reviewed: 02/17/19 Patient is a current smoker, smokes every day Exercise Type/Frequency Exercises rarely Seat Belt/Car Seat Always uses seat belt Currently Active Patient is currently sexually active Contraceptive Methods Current methods include progesterone IUD STD's No STD History Allergies, Adverse Reactions, Alerts Active Allergies Reaction Severity Comments Date Azithromycin 02/17/2019 Inactive Allergies NKDA 12/12/2017 Medications Active Medications SIG Qnty Indications Ordering Provider Date Lo Loestrin Fe take 1 tab by 84tabs Mariposa Langston MD 02/17/2019 1mg-10 mcg mouth every day / 10 mcg Tablets History Medications No Active Medications Unknown 02/17/2019 - 02/17/2019 Doxycycline Hyclate 1 by mouth twice a 14caps Hudson Jeff 02/03/2019 - day Chavez Ackerman 02/17/2019 100mg Capsules Liletta (52 MG) placed 08/19/18 Luisana Tse, 11/03/2018 - 02/17/2019 19.5mcg/Day IUD Oxycodone-Acetaminoph Take one by mouth 6tabs Sarah Wan, 2017 - en every 4-6 hours as CNM 03/22/2018 5-325mg Tablets needed for dental pain Multivitamin ok to substitute 90caps Betsy Diallo, 12/12/2017 - Plus Dha pnv + dha covered CNM 01/09/2018 27-0.8-250mg by pt insurance. 1 Capsules tablet by mouth daily Gummies/Dha may autosub any 60units Sarah Wan, 12/12/2017 - & Folic Acid chewable pnv w/ dha CNM 01/26/2019 0.4-32.5mg covered by pt's [employer] insurance Famotidine Take 1 Tablet By 60tabs Betsy Diallo, 12/12/2017 - 40mg Tablets Mouth Daily. May CNM 01/26/2019 Increase To Twice Daily as Needed Medications Administered in Office Medication SIG Qnty Indications Ordering Provider Date Injection Rho (D) Immune Globulin, Nurses 05/30/2018 Human, One Dose Package Injection Immunizations CPT Code Status Date Vaccine Lot # [id number] Given 06/10/2018 Tetnus, Diptheria Toxoids And Acellular Pertussis, [id number] PT > 7Yrs Old [id number] Given 06/10/2018 Influenza Vaccine Quadrivalent Preser/Antibiotic [id number] Free Im Use Vital Signs Date Vital Result Comment 02/17/2019 8:59am BP Systolic 114 mmHg BP Diastolic 72 mmHg Height 64.5 inches 5'4.50" Weight 250.00 lb BMI (Body Mass Index) 42.2 kg/m2 Last Menstrual Period [id number] 1 Parity 1 02/03/2019 8:17am BP Systolic 120 mmHg BP Diastolic 68 mmHg Height 64.5 inches 5'4.50" Weight 252.00 lb BMI (Body Mass Index) 42.6 kg/m2 Last Menstrual Period [id number] 1 Parity 1 01/09/2019 9:58am BP Systolic 120 mmHg BP Diastolic 74 mmHg Height 64.5 inches 5'4.50" Weight 248.00 lb BMI (Body Mass Index) 41.9 kg/m2 1 Parity 1 11/03/2018 8:42am BP Systolic 128 mmHg BP Diastolic 66 mmHg Height 64.5 inches 5'4.50" Weight 247.00 lb BMI (Body Mass Index) 41.7 kg/m2 Last Menstrual Period [id number] 1 Parity 1 09/23/2018 2:40pm BP Systolic 128 mmHg BP Diastolic 66 mmHg Height 64.5 inches 5'4.50" Weight 235.00 lb BMI (Body Mass Index) 39.7 kg/m2 Last Menstrual Period [id number] 1 Parity 1 08/19/2018 3:34pm BP Systolic 126 mmHg BP Diastolic 72 mmHg Height 64.5 inches 5'4.50" Weight 242.00 lb BMI (Body Mass Index) 40.9 kg/m2 Last Menstrual Period [id number] 1 Parity 1 08/06/2018 2:13pm BP Systolic 136 mmHg BP Diastolic 82 mmHg Height 64.5 inches 5'4.50" Weight 245.00 lb BMI (Body Mass Index) 41.4 kg/m2 Last Menstrual Period [id number] 1 Parity 1 12/12/2017 1:38pm BP Systolic 112 mmHg BP Diastolic 64 mmHg Height 64.5 inches 5'4.50" Weight 257.00 lb BMI (Body Mass Index) 43.4 kg/m2 Last Menstrual Period [id number] 1 Parity 0 Results Test Date Facility Test Result H/L Range Note Laboratory test 01/09/2019 [facility] HCG < 0.60 mIU/ mL 1 finding [place] [address] [phone] Prolactin 4.8 ng/mL N 1.0-25.0 2 TSH 1.76 mcIU/mL N 0.34-5.60 3 T4 Free 0.80 ng/dL N 0.61-1.12 4 Comp Metabolic Panel 01/09/2019 [facility] Sodium 141 mmol/L N 135-145 [place] [address] [phone] Potassium 3.8 mmol/L N 3.5-5.0 Chloride 107 mmol/L N 101-111 Co2 Carbon Dioxide 26 mmol/L N 22-32 Anion Gap 8 mmol/L N 2-11 Glucose 88 mg/dL N 70-100 Blood Urea Nitrogen 11 mg/dL N 6-24 Creatinine 0.74 mg/dL N 0.51-0.95 BUN/Creatinine Ratio 14.9 N 8-20 Calcium 9.6 mg/dL N 8.6-10.3 Total Protein 6.9 g/dL N 6.4-8.9 Albumin 4.5 g/dL N 3.2-5.2 Globulin 2.4 g/dL N 2-4 Albumin/Globulin Ratio 1.9 N 1-3 Total Bilirubin 0.40 mg/dL N 0.2-1.0 Alkaline Phosphatase 89 U/L N 34-104 Alt 23 U/L N 7-52 Ast 19 U/L N 13-39 Egfr Non- 98.1 >60 Egfr 118.7 >60 5 Laboratory test 06/19/2018 [facility] Rupture of Positive 6 finding [place] [address] Membranes [phone] Laboratory test 05/30/2018 [facility] AB Screen NEGATIVE 7 finding [place] [address] [phone] Laboratory test 05/27/2018 [facility] Genital For GRP SEE RESULT 8 finding [place] [address] B Strep Only BELOW [phone] Urinalysis 05/10/2018 [facility] Urine Color Yellow Profile [place] [id number] [phone] Urine Appearance Cloudy Urine Specific [place] 1.017 N 1.010-1.030 Urine pH 6.0 N [...] Present Abnormal Absent Urine Culture And 05/10/2018 [facility] Urine Culture SEE RESULT 9 [place] [address] BELOW [phone] Urine Culture And 05/09/2018 [facility] Urine Culture SEE RESULT 10 [place] [address] BELOW [phone] Urinalysis Profile 05/03/2018 [facility] [place] [address] [phone] Urine Appearance Cloudy Urine Specific [place] 1.021 N 1.010-1.030 Urine pH 6.0 N [...] Cell Present Abnormal Absent Laboratory test 05/03/2018 [facility] Rupture of Negative 11 [place] [address] Membranes [phone] Urine Culture And 05/03/2018 [facility] Urine Culture SEE RESULT 12 [place] [address] BELOW [phone] Laboratory test 03/25/2018 [facility] Glucose 1 HR 128 mg/dL N 70-1 13 [place] [address] Post Prandial 60 [phone] CBC With No Diff 03/25/2018 [facility] White Blood 15.6 10^3/uL High 3.5- [place] [address] Count 10.8 [phone] Red Blood Count 3.48 10^6/uL Low 4.00-5.40 Hemoglobin 11.3 g/dL Low 12.0-16.0 Hematocrit 33 % Low 35-47 Mean Corpuscular Volume 94 fL N 80-97 Mean Corpuscular Hemoglobin 32 pg High 27-31 Mean Corpuscular HGB Conc 35 g/dL N 31-36 Red Cell Distribution Width 13 % N 10.5-15 Platelet Count 229 10^3/uL N 150-450 Mean Platelet Volume 9.8 um3 N 7.4-10.4 Laboratory test 03/25/2018 [facility] AB Screen NEGATIVE 14 finding [place] [id number] [phone] THC Confirmation 01/09/2018 [facility] Urine Carboxy 120 ng/mL 15 [place] [address] THC Confirm [phone] Urine THC Interpretation Positive. 16 Urine Drug 01/09/2018 [facility] Urine Amphetamine Negative ng/ mL 17 Comp 20 [place] [address] [phone] Urine Barbiturates Negative ng/mL 18 Urine Benzodiazepines Negative ng/mL 19 Urine Cocaine Negative ng/mL 20 Urine Phencyclidine Negative ng/mL Cutoff: 25 Urine Tetrahydrocannabinol Presumptive Posi <SEE NOTE> Abnormal Cutoff: 50 21 ng/mL Creatinine, Urine 269.2 mg/dL Specific [place] 1.020 pH 6.1 Oxidants Negative 22 Adulterants Comment Normal Codeine, Ur Not Detected ng/mL Cutoff: 25 23 Keauuum-0-xeyp-glucuronide, Ur Not Detected ng/mL 24 Morphine, Ur Not Detected ng/mL Cutoff: 25 25 Kaofsjmq-9-skko-glucuronide, U Not Detected ng/mL 26 6-monoacetylmorphine, Ur Not Detected ng/mL Cutoff: 25 27 Hydrocodone, Ur Not Detected ng/mL Cutoff: 25 28 Norhydrocodone, Ur Not Detected ng/mL Cutoff: 25 29 Dihydrocodeine, Ur Not Detected ng/mL Cutoff: 25 30 Hydromorphone, Ur Not Detected ng/mL Cutoff: 25 31 Gistkvzcnndth3oxqqmcpftdrpndj Not Detected ng/mL 32 Oxycodone, Ur Not Detected ng/mL Cutoff: 25 33 Noroxycodone, Ur Not Detected ng/mL Cutoff: 25 34 Oxymorphone, Ur Not Detected ng/mL Cutoff: 25 35 Ycktaltsvzp-8-oqgw-glucuronide Not Detected ng/mL 36 Noroxymorphone, Ur Not Detected ng/mL Cutoff: 25 37 Fentanyl, Ur Not Detected ng/mL Cutoff: 2 38 Norfentanyl, Ur Not Detected ng/mL Cutoff: 2 39 Meperidine, Ur Not Detected ng/mL Cutoff: 25 40 Normeperidine, Ur Not Detected ng/mL Cutoff: 25 41 Naloxone, Ur Not Detected ng/mL Cutoff: 25 42 Qrnzfjil-9-enyw-glucuronide, U Not Detected ng/mL 43 Methadone, Ur Not Detected ng/mL Cutoff: 25 44 Eddp, Ur Not Detected ng/mL Cutoff: 25 45 Propoxyphene, Ur Not Detected ng/mL Cutoff: 25 46 Norpropoxyphene, Ur Not Detected ng/mL Cutoff: 25 47 Tramadol, Ur Not Detected ng/mL Cutoff: 25 48 O-desmethyltramadol, Ur Not Detected ng/mL Cutoff: 25 49 Tapentadol, Ur Not Detected ng/mL Cutoff: 25 50 N-desmethyltapentadol, Ur Not Detected ng/mL Cutoff: 50 51 Kwevlbwgiq-wzrx-ctofribdsay, U Not Detected ng/mL 52 Buprenorphine, Ur Not Detected ng/mL Cutoff: 5 53 Norbuprenorphine, Ur Not Detected ng/mL Cutoff: 5 54 Norbuprenorphine glucuronide Not Detected ng/mL Cutoff: 20 55 Opioid Interpretation See Comment 56 Afp,Screen 01/09/2018 [facility] Results Summary [place] [address] [phone] Neural Tube Defect Estimate SEE BELOW 57 Collection Date 01/09/18 Maternal Date of [birth year] Calculated Age At SOPHY 22 years Maternal Weight 257 lbs Insulin Dependent Diabetes No Current Cigarette Smoking Stat Smoker Patient Race non-Black Number of Fetuses 1 Number of Chorions Monochorionic Ivf N o Prev Preg w/Neural Tube Defect N o Patient/Father of Baby Has NTD N o Initial Or Repeat Testing Initial testing Physician Phone Number [phone] SOPHY by LMP 06/27/18 GA On Collection By Dates SEE BELOW wk,d 59 GA Used In Risk Estimate Dates estimate Afp 35.9 ng/mL Afp MoM 1.51 MoM <2.50 Interpretation See Comment 59 Additional Comments See Comment 60 Recommended Follow Up None. General Test Information See Comment 61 Chromosomes 13, 18, 21 12/12/2017 [employer] Chromosome 13 Negative N 62 + Sex Chromosome Aneuploidy Chromosome 18 Aneuploidy Negative N 63 Chromosome 21 Aneuploidy Negative N 64 Sex Chromosome Analysis Female N 65 PDF Report SEE IMAGE PNL No 12/12/2017 [facility] Rubella Screen Immune Immune 66 [place] [address] [phone] Hemoglobin A1c 5.2 % N 4.0-5.6 67 Hepatitis B Surface Ag Nonreactive Nonreactive 68 Syphillis Igg W/Reflex RPR Nonreactive Nonreactive 69 CBC With No 12/12/2017 [facility] White Blood 15.2 10^3/uL High 3.5-10.8 [place] [address] Count [phone] Red Blood Count 4.23 10^6/uL N 4.0-5.4 [...] um3 N 7.4-10.4 Type And Screen 12/12/2017 [facility] Patient [place] [address] [phone] Antibody Screen NEGATIVE HIV 1/2 AB 12/12/2017 [facility] HIV 1 2 Nonreactive Nonreactive [address] [place] [address] Antibody [phone] Lead 12/12/2017 [facility] Lead,Venous, < 1.0 g/dL 0.0-4.9 71 [place] [address] B [phone] Submitting Laboratory Phone [phone] Urine Culture And 12/12/2017 [facility] Urine Culture SEE RESULT 73 [place] [address] BELOW [phone] GC/Chlamydia Dna 12/12/2017 [facility] Chlamydia [place] [address] trachomatis [phone] Rna Neisseria gonorrhoeae (GC) Rna Negative Negative Laboratory test 12/12/2017 [facility] Cytology SEE RESULT BELOW 74 finding [place], [place] 9233683 [phone] 1 <5.0 Negative 5.0 - 25.0 Indeterminate (Repeat testing recommended after 72 hours) >25.0 Positive Perimenopausal women can display HCG levels of up to 20 mIU/mL 2 [id number] 3 [id number] 4 [id number] 5 Because ethnic data is not always readily available, this report includes an eGFR for both -Americans and non- Americans. The National Kidney Disease Education Program (NKDEP) does not endorse the use of the MDRD equation for patients that are not between the ages of 18 and 70, are , have extremes of body size, muscle mass, or nutritional status, or are non- or non-. According to the National Kidney Foundation, irrespective of diagnosis, the stage of the disease is based on the level of kidney function: Stage Description GFR(mL/min/1.73 m(2)) 1 Kidney damage with normal or decreased GFR 90 2 Kidney damage with mild decrease in GFR 60-89 3 Moderate decrease in GFR 30-59 4 Severe decrease in GFR 15-29 5 Kidney failure <15 (or dialysis) 6 A POSITIVE result indicates probable membrane rupture. 7 [id number] 8 SEE RESULT BELOW Name: GAMAL ALEXANDRA : [address]: Mariposa Langston MD Acct: [id number] Unit: [id number] AGE: 22 Location: [facility] Re05/27/18 SEX: F Status: REG REF SPEC: [id number] CECILIA: 05/27/[address] [facility] [address]: Mariposa Langston MD REQ: [id number] RECD: 05/27/18 STATUS: COMP _ SOURCE: CER/VAG/RE SPDESC: ORDERED: Grp B Strgillian Scrn COMMENTS: [id number] QUERIES: Is Patient Penicillin Allergic? N Is patient penicillin allergic and/or sensitivities needed? N Provider Requisition # [id number]_ Procedure Result Reported Site Group B Strep Culture Screen Final 05/29/18- 1050 ML Group B Strep Screen Negative * ML - Main Lab . END OF REPORT DEPARTMENT OF PATHOLOGY, [address] [place] [address] Edgard [place] M.D. Director [facility] # [id number] 9 SEE RESULT BELOW Name: GAMAL ALEXANDRA : [address]: Mariposa Langston MD Acct: [id number] Unit: [id number] AGE: 22 Location: [facility] Re05/10/18 SEX: F Status: DEP REF SPEC: [id number] CECILIA: 05/10/[address] [facility] [address]: Mariposa Langston MD REQ: [id number] RECD: 05/10/18 STATUS: SHANICE MCCANN DR: Mavis Primary Care Phys,NOP _ SOURCE: URINE SPDESC: ORDERED: Urine Culture Procedure Result Reported Site Urine Culture Final 05/12/18- 0816 ML No growth of clinically significant organisms * ML - Main Lab . END OF REPORT DEPARTMENT OF PATHOLOGY, [address] [place] [address] Edgard [place] M.D. Director [facility] # [id number] 10 SEE RESULT BELOW Name: GAMAL ALEXANDRA : [address]: Griselda Dove CNM Acct: [id number] Unit: [id number] AGE: 22 Location: [facility] Re05/09/18 SEX: F Status: REG REF SPEC: [id number] CECILIA: 05/09/[address]: Griselda MCCRACKEN REQ: [id number] RECD: 05/09/18 STATUS: COMP _ SOURCE: URINE SPDESC: ORDERED: Urine Culture COMMENTS: [id number] Urine Source: Random Procedure Result Reported Site Urine Culture Final 05/11/18- 0335 ML No growth of clinically significant organisms * ML - Main Lab . END OF REPORT DEPARTMENT OF PATHOLOGY, [address] [place] [address] Edgard [place] M.D. Director [facility] # [id number] 11 A NEGATIVE results indicates there is no evidence of membrane rupture. 12 SEE RESULT BELOW Name: GAMAL ALEXANDRA : [address]: Luisana Tse MD Acct: [id number] Unit: [id number] AGE: 22 Location: [facility] Re05/03/18 SEX: F Status: DEP REF SPEC: [id number] CECILIA: 05/03/[address]: Luisana Tse MD REQ: [id number] RECD: 05/03/18 STATUS: SHANICE MCCANN DR: Mavis Primary Care Phys,NOPCP _ SOURCE: URINE SPDESC: ORDERED: Urine Culture Procedure Result Reported Site Urine Culture Final 05/05/18- 0710 ML No growth of clinically significant organisms * ML - Main Lab . END OF REPORT DEPARTMENT OF PATHOLOGY, [address] [place] [address] Edgard [place] M.D. Director [facility] # [id number] 13 [id number] 14 [id number] 15 REFERENCE VALUE Cutoff: 3.0 16 ADDITIONAL INFORMATION This report is intended for use in clinical monitoring and management of patients. It is not intended for use in employment-related testing. This test was developed and its performance characteristics determined by [facility] in a manner consistent with CLIA requirements. This test has not been cleared or approved by the U.S. Food and Drug Administration. Test Performed by: [facility] [address] [place] [address] 17 REFERENCE VALUE Cutoff: 500 18 REFERENCE VALUE Cutoff: 200 19 REFERENCE VALUE Cutoff: 100 20 REFERENCE VALUE Cutoff: 150 21 Presumptive Positive Drug confirmation to follow. Presumptive Positive means that the screening method is positive, but the test needs to be run by a confirmatory method before being finalized. ADDITIONAL INFORMATION This report is intended for use in clinical monitoring or management of patients. It is not intended for use in employment-related testing. 22 REFERENCE VALUE Cutoff: 200 mg/L 23 Tylenol 3 24 Metabolite of codeine REFERENCE VALUE Cutoff: 100 25 Farhana Saleh, Contin; Also a minor metabolite (10%) of codeine and can be seen in low concentrations (<2,000 ng/mL) with poppy seed ingestion. 26 Metabolite of morphine REFERENCE VALUE Cutoff: 100 27 Metabolite of heroin 28 Lortab, [place], Vicodin; Also a very minor metabolite of codeine and impurity (<1%) of oxycodone. 29 Metabolite of hydrocodone 30 Metabolite of hydrocodone 31 Dilaudid, Exalgo; Also a metabolite of hydrocodone and a minor (<5%) metabolite of morphine. 32 Metabolite of hydromorphone REFERENCE VALUE Cutoff: 100 33 Endocet, Percocet, Oxycontin 34 Metabolite of oxycodone 35 Numorphan, Opana; Also a metabolite of oxycodone. 36 Metabolite of oxymorphone REFERENCE VALUE Cutoff: 100 37 Metabolite of oxymorphone 38 Actiq, Duragesic, Fentora 39 Metabolite of fentanyl 40 Demerol 41 Metabolite of meperidine 42 Narcan 43 Metabolite of naloxone REFERENCE VALUE Cutoff: 100 44 Dolophine 45 Metabolite of methadone 46 Darvon, Darvocet 47 Metabolite of propoxyphene 48 Tradol, Ultram, Ultracet 49 Metabolite of tramadol 50 Nucynta 51 Metabolite of tapentadol 52 Metabolite of tapentadol REFERENCE VALUE Cutoff: 100 53 Buprenex, Suboxone 54 Metabolite of buprenorphine 55 Metabolite of buprenorphine 56 No opioids were detected. The absence of expected drug(s) and/or drug metabolite(s) may indicate non-compliance, altered pharmacokinetics, inappropriate timing of specimen collection relative to drug administration, diluted/adulterated urine, or limitations of testing. ADDITIONAL INFORMATION This test was developed and its performance characteristics determined by [facility] in a manner consistent with CLIA requirements. This test has not been cleared or approved by the U.S. Food and Drug Administration. Test Performed by: [facility] [address] [place] [address] 57 RESULT: 58 RESULT: 59 RESULT: Screen negative for neural tube defects. 60 RESULT: Reviewed by Bianca Torres,Ph.D. 61 This screening provides an estimation of risk, [...] developed and its performance characteristics determined by [facility] in a manner consistent with CLIA requirements. This test has not been cleared or approved by the U.S. Food and Drug Administration. Test Performed by: [facility] [employer] [facility] [employer] [facility] [place] - [address] [address] 62 No aneuploidy detected. 63 No aneuploidy detected. 64 No aneuploidy detected. 65 Female: No aneuploidy detected. 66 [id number] 67 Therapeutic target for the treatment of diabetes mellitus patients is <7% HBA1C, and in selective patients <6.0%. Please refer to [place] [employer] diabetic care guidelines for further information. 68 [id number] 69 Warning: A positive result is not useful for establishing a diagnosis of syphilis. In most situations, such a result may reflect a prior treated infection; a negative result can exclude a diagnosis of syphilis except for incubating or early primary disease. 70 It is recognized that currently available assays [...] 95% confidence interval of 99.78 to 99.96%. 71 ADDITIONAL INFORMATION Testing performed by Inductively Coupled Plasma-Mass Spectrometry (ICP-MS). This test was developed and its performance characteristics determined by [facility] in a manner consistent with CLIA requirements. This test has not been cleared or approved by the U.S. Food and Drug Administration. 72 Test Performed by: [facility] [place] - [place] [address] [place] [address] 73 SEE RESULT BELOW Name: GAMAL ALEXANDRA : [address]: Betys Diallo [facility] Acct: [id number] Unit: [id number] AGE: 22 Location: [facility] Re12/12/17 SEX: F Status: REG REF SPEC: [id number] CECILIA: 12/12/17-[address]: Betsy Diallo [facility] REQ: [id number] RECD: 12/12/17 STATUS: COMP _ SOURCE: URINE SPDC: ORDERED: Urine Culture COMMENTS: [id number] Urine Source: Random Procedure Result Reported Site Urine Culture Final 12/14/17- 937 ML No growth of clinically significant organisms * ML - Main Lab . END OF REPORT DEPARTMENT OF PATHOLOGY, [address] [place] [address] Edgard [place] M.D. Director [facility] # [id number] 74 SEE RESULT BELOW Name: GAMAL ALEXANDRA : [address]: Betsy Diallo CNM Acct: [id number] Unit: [id number] AGE: 22 Location: [facility] Re12/12/17 SEX: F Status: REG REF SPEC: [id number] CECILIA: 12/12/17-[address]: Betsy Diallo CNM REQ: [id number] RECD: 12/13/17 STATUS: SOUT _ ORDERED: TP IMAGE ANALYS COMMENTS: [id number] Negative for Intraepithelial lesion or Malignancy A. [...] was evaluated with the assistance of the RFinityp Test Imaging System. Due to cytologic findings at the typing office worker microscope, comprehensive manual rescreening by a Quantometer Operator may be required. The Pap Smear is [...] years. END OF REPORT DEPARTMENT OF PATHOLOGY, [address] [place] [address] Edgard [place] M.D. Director [facility] # [id number] Procedures Date Code Description Status 02/17/2019 93397 Remove Intrauterine Device Completed 02/03/2019 99674 Echography Transvaginal Completed 11/04/2018 67750 Echography Transvaginal Completed 08/19/2018 76925 Insert Intrauterine Device Completed 06/19/2018 94944 Obstetric Care Routine Completed 05/30/2018 05454 Injection Intramuscular Or Subcutaneous Completed 05/13/2018 33732 Biophysical Profile Without Non Stress Test Completed 05/13/2018 67698 Echography Uterus Follow-Up Or Repeat Completed 05/10/2018 90344 Non-Stress Test Completed 04/15/2018 79745 Echography Uterus Follow-Up Or Repeat Completed 02/11/2018 89492 Echography Uterus Follow-Up Or Repeat Completed 12/12/2017 00914 OB Ultrasound First Trimester Completed Encounters Type Date Location Provider Dx Diagnosis Office Visit 02/03/2019 [facility] [place] Ackerman, R10.2 Pelvic and perineal 8:20a Chavez pain Office Visit 11/03/2018 [facility] Office Luisana Tse, R10.2 Pelvic and perineal 8:45a pain Office Visit 09/23/2018 [facility] Office Luisana Tse, Z30.431 Encounter for routine 2:45p checking of intrauterine contracep dev Office Visit 05/10/2018 [facility] Mariposa Langston MD O16.3 Unspecified maternal 9:00a hypertension, third trimester Plan of Treatment Future Appointment(s):03/31/2019 9:00 am - Mariposa Langston MD at [facility]03/2019 - Hudson Ackerman M.D.R10.2 Pelvic and perineal painComments:sono appears normalcontinued crampiness . has tried nsaids sans reliefnot interested in further suppression. no good alternatives to iud so wants to keep it.will try empiric doxycyline in case of low grade infx
--- OUTSIDE RECORDS SUMMARY | 2019-03-03 17:43 | XMS REPORT | Continuity of Care Document ---
:1995 External Reference #:[id number] Author Name Hudson Ackerman M.D. Address [address] [place] [address] Care Team Providers Name Role Phone Mariposa Langston MD Care Team Information Clinical Pharmacist Unavailable Payers Date Identification Numbers Payment Provider Subscriber Policy Number: [id number] [facility] BC/BS [facility] Gamal Alexandra PayID: [id number] [address] [address] [place] [address] Problems Active Problems Provider Date Primigravida Betsy Diallo CNM Onset: 12/12/2017 Body mass index 40+ - severely obese Betsy Diallo CNM Onset: 12/12/2017 Zmock-Nznweevml-Ugnrb pattern Betsy Diallo CNM Onset: 03/22/2018 Note: [...] smoker, smokes every day Smoking Status Reviewed: 02/03/19 Patient is a current smoker, smokes every day Exercise Type/Frequency Exercises rarely Seat Belt/Car Seat Always uses seat belt Currently Active Patient is currently sexually active Contraceptive Methods Negative For None Contraceptive Methods Current methods include progesterone IUD STD's No STD History Allergies, Adverse Reactions, Alerts Description No Known Drug Allergies Medications Active Medications SIG Qnty Indications Ordering Provider Date Doxycycline Hyclate 1 by mouth twice 14caps Hudson Ackerman, 02/03/2019 a day M.D. 100mg Capsules Liletta (52 MG) placed 08/19/18 Luisana Tse, 11/03/2018 19.5mcg/Day IUD History Medications Oxycodone-Acetaminophen Take one by 6tabs Sarah 01/27/2018 - 5-325mg Tablets mouth every 4-6 Soco [facility] 03/22/2018 hours as needed for dental pain Multivitamin Plus ok to substitute 90caps Betsy Diallo, 2017 - Dha pnv + dha [facility] 01/09/2018 27-0.8-250mg Capsules covered by pt insurance. 1 tablet by mouth daily Gummies/Dha & Folic may autosub any 60units Sarah 12/12/2017 - Acid chewable pnv w/ Soco [facility] 01/26/2019 0.4-32.5mg Chewtabs dha covered by pt's insurance Famotidine Take 1 Tablet By 60tabs Betsy Diallo, 12/12/2017 - 40mg Tablets Mouth Daily. November [facility] 01/26/2019 Increase To Twice Daily as Needed Medications Administered in Office Medication SIG Qnty Indications Ordering Provider Date Injection Rho (D) Immune Globulin, Nurses 05/30/2018 Human, One Dose Package Injection Immunizations CPT Code Status Date Vaccine Lot # [id number] Given 06/10/2018 Tetnus, Diptheria Toxoids And Acellular Pertussis, 2774D PT > 7Yrs Old [address] Given 06/10/2018 Influenza Vaccine Quadrivalent Preser/Antibiotic [id number] Free Im Use Vital Signs Date Vital Result Comment 02/03/2019 8:17am BP Systolic 120 mmHg BP Diastolic 68 mmHg Height 64.5 inches 5'4.50" Weight 252.00 lb BMI (Body Mass Index) 42.6 kg/m2 Last Menstrual Period [id number] 1 Parity 1 01/09/2019 9:58am BP Systolic 120 mmHg BP Diastolic 74 mmHg Height 64.5 inches 5'4.50" Weight 248.00 lb BMI (Body Mass Index) 41.9 kg/m2 1 Parity 1 11/03/2018 8:42am BP Systolic 128 mmHg BP Diastolic 66 mmHg Height 64.5 inches 5'4.50" Weight 247.00 lb BMI (Body Mass Index) 41.7 kg/m2 Last Menstrual Period [id number] 1 Parity 1 09/23/2018 2:40pm BP Systolic 128 mmHg BP Diastolic 66 mmHg Height 64.5 inches 5'4.50" Weight 235.00 lb BMI (Body Mass Index) 39.7 kg/m2 Last Menstrual Period [id number] 1 Parity 1 08/19/2018 3:34pm BP Systolic 126 mmHg BP Diastolic 72 mmHg Height 64.5 inches 5'4.50" Weight 242.00 lb BMI (Body Mass Index) 40.9 kg/m2 Last Menstrual Period [id number] 1 Parity 1 08/06/2018 2:13pm BP Systolic 136 mmHg BP Diastolic 82 mmHg Height 64.5 inches 5'4.50" Weight 245.00 lb BMI (Body Mass Index) 41.4 kg/m2 Last Menstrual Period [id number] 1 Parity 1 12/12/2017 1:38pm BP Systolic 112 mmHg BP Diastolic 64 mmHg Height 64.5 inches 5'4.50" Weight 257.00 lb BMI (Body Mass Index) 43.4 kg/m2 Last Menstrual Period 3694601 1 Parity 0 Results Test Date Facility Test Result H/L Range Note Laboratory test 01/09/2019 [facility] HCG < 0.60 mIU/ mL 1 [place] [address] [phone] Prolactin 4.8 ng/mL N 1.0-25.0 2 TSH 1.76 mcIU/mL N 0.34-5.60 3 T4 Free 0.80 ng/dL N 0.61-1.12 4 Comp Metabolic Panel 01/09/2019 [facility] Sodium 141 mmol/L N 135-145 [place] [address] [phone] Potassium 3.8 mmol/L N 3.5-5.0 Chloride 107 [...] Egfr 118.7 >60 5 Laboratory test 06/19/2018 [facility] Rupture of Positive [address] [place] [address] Membranes [phone] Laboratory test 05/30/2018 [facility] AB Screen NEGATIVE 7 [place] [address] [phone] Laboratory test 05/27/2018 [facility] Genital For GRP SEE RESULT 8 [place] [address] B Strep Only BELOW [phone] Urinalysis 05/10/2018 [facility] Urine Color Yellow Profile [place], [place] [address] [phone] Urine Appearance Cloudy Urine Specific [place] 1.017 N 1.010-1.030 Urine pH 6.0 N [...] Present Abnormal Absent Urine Culture And 05/10/2018 [facility] Urine Culture SEE RESULT 9 [place] [address] BELOW [phone] Urine Culture And 05/09/2018 [facility] Urine Culture SEE RESULT 10 [place] [address] BELOW [phone] Urinalysis Profile 05/03/2018 [facility] [place] [address] [phone] Urine Appearance Cloudy Urine Specific [place] 1.021 N 1.010-1.030 Urine pH 6.0 N [...] Cell Present Abnormal Absent Laboratory test 05/03/2018 [facility] Rupture of Negative [address] [place] [address] Membranes [phone] Urine Culture And 05/03/2018 [facility] Urine Culture SEE RESULT 12 [place] [address] BELOW [phone] Laboratory test 03/25/2018 [facility] Glucose 1 HR 128 mg/dL N 70-1 13 [place] [address] Post Prandial 60 [phone] CBC With No Diff 03/25/2018 [facility] White Blood 15.6 10^3/uL High 3.5- [place] [address] Count 10.8 [phone] Red Blood Count 3.48 10^6/uL Low 4.00-5.40 Hemoglobin 11.3 g/dL Low 12.0-16.0 Hematocrit 33 % Low 35-47 Mean Corpuscular Volume 94 fL N 80-97 Mean Corpuscular Hemoglobin 32 pg High 27-31 Mean Corpuscular HGB Conc 35 g/dL N 31-36 Red Cell Distribution Width 13 % N 10.5-15 Platelet Count 229 10^3/uL N 150-450 Mean Platelet Volume 9.8 um3 N 7.4-10.4 Laboratory test 03/25/2018 [facility] AB Screen NEGATIVE 14 [place] [address] [phone] THC Confirmation 01/09/2018 [facility] Urine Carboxy 120 ng/mL 15 [place] [address] THC Confirm [phone] Urine THC Interpretation Positive. 16 Urine Drug 01/09/2018 [facility] Urine Amphetamine Negative ng/ mL 17 Comp 20 [place] [address] [phone] Urine Barbiturates Negative ng/mL 18 Urine Benzodiazepines Negative ng/mL 19 Urine Cocaine Negative ng/mL 20 Urine Phencyclidine Negative ng/mL Cutoff: 25 Urine Tetrahydrocannabinol Presumptive Posi <SEE NOTE> Abnormal Cutoff: 50 21 ng/mL Creatinine, Urine 269.2 mg/dL Specific [place] 1.020 pH 6.1 Oxidants Negative 22 Adulterants Comment Normal Codeine, Ur Not Detected ng/mL Cutoff: 25 23 Lemqntk-8-zitr-glucuronide, Ur Not Detected ng/mL 24 Morphine, Ur Not Detected ng/mL Cutoff: 25 25 Catkqpdp-7-fjfo-glucuronide, U Not Detected ng/mL 26 6-monoacetylmorphine, Ur Not Detected ng/mL Cutoff: 25 27 Hydrocodone, Ur Not Detected ng/mL Cutoff: 25 28 Norhydrocodone, Ur Not Detected ng/mL Cutoff: 25 29 Dihydrocodeine, Ur Not Detected ng/mL Cutoff: 25 30 Hydromorphone, Ur Not Detected ng/mL Cutoff: 25 31 Nwfvqdvvucfad6ghvtpkcgszrtjac Not Detected ng/mL 32 Oxycodone, Ur Not Detected ng/mL Cutoff: 25 33 Noroxycodone, Ur Not Detected ng/mL Cutoff: 25 34 Oxymorphone, Ur Not Detected ng/mL Cutoff: 25 35 Orilzigqtha-8-znhq-glucuronide Not Detected ng/mL 36 Noroxymorphone, Ur Not Detected ng/mL Cutoff: 25 37 Fentanyl, Ur Not Detected ng/mL Cutoff: 2 38 Norfentanyl, Ur Not Detected ng/mL Cutoff: 2 39 Meperidine, Ur Not Detected ng/mL Cutoff: 25 40 Normeperidine, Ur Not Detected ng/mL Cutoff: 25 41 Naloxone, Ur Not Detected ng/mL Cutoff: 25 42 Nlpryzre-9-yler-glucuronide, U Not Detected ng/mL 43 Methadone, Ur [...] Ur Not Detected ng/mL Cutoff: 50 51 Imeznxhrwg-ftad-drregdzzrkq, U Not Detected ng/mL 52 Buprenorphine, Ur Not Detected ng/mL Cutoff: 5 53 Norbuprenorphine, Ur Not Detected ng/mL Cutoff: 5 54 Norbuprenorphine glucuronide Not Detected ng/mL Cutoff: 20 55 Opioid Interpretation See Comment 56 Afp,Screen 01/09/2018 [facility] Results Summary [place] [address] [phone] Neural Tube Defect Estimate SEE BELOW 57 [...] Repeat Testing Initial testing Physician Phone Number [phone] SOPHY by LMP 06/27/18 GA On Collection By Dates SEE BELOW wk,d 58 GA Used In Risk Estimate Dates estimate Afp 35.9 ng/mL Afp MoM 1.51 MoM <2.50 Interpretation See Comment 59 Additional Comments See Comment 60 Recommended Follow Up None. General Test Information See Comment 61 Chromosomes 13, 18, 21 12/12/2017 [facility] Chromosome 13 Negative N 62 + Sex Chromosome Aneuploidy Chromosome 18 Aneuploidy Negative N 63 Chromosome 21 Aneuploidy Negative N 64 Sex Chromosome Analysis Female N 65 PDF Report SEE IMAGE PNL No 12/12/2017 [facility] Rubella Screen Immune Immune 66 [place] [address] [phone] Hemoglobin A1c 5.2 % N 4.0-5.6 67 Hepatitis B Surface Ag Nonreactive Nonreactive 68 Syphillis Igg W/Reflex RPR Nonreactive Nonreactive 69 CBC With No 12/12/2017 [facility] White Blood 15.2 10^3/uL High 3.5-10.8 [place] [address] Count [phone] Red Blood Count 4.23 10^6/uL N 4.0-5.4 [...] um3 N 7.4-10.4 Type And Screen 12/12/2017 [facility] Patient [place] [address] [phone] Antibody Screen NEGATIVE HIV 1/2 AB 12/12/2017 [facility] HIV 1 2 Nonreactive Nonreactive [address] [place] [address] Antibody [phone] Lead 12/12/2017 [facility] Lead,Venous, < 1.0 g/dL 0.0-4.9 [address] [phone] Submitting Laboratory Phone [phone] Urine Culture And 12/12/2017 [facility] Urine Culture SEE RESULT 73 [place] [address] BELOW [phone] GC/Chlamydia Dna 12/12/2017 [facility] Chlamydia [place] [address] trachomatis [phone] Rna Neisseria gonorrhoeae (GC) Rna Negative Negative Laboratory test 12/12/2017 [facility] Cytology SEE RESULT BELOW [address] [place] [address] [phone] 1 <5.0 Negative 5.0 - 25.0 Indeterminate (Repeat testing recommended after 72 hours) >25.0 Positive Perimenopausal women can display HCG levels of up to 20 mIU/mL 2 [id number] 3 [id number] 4 [id number] 5 Because ethnic data is not always [...] POSITIVE result indicates probable membrane rupture. 7 [id number] 8 SEE RESULT BELOW Name: GAMAL ALEXANDRA : [address]: Mariposa Langston MD Acct: [id number] Unit: [id number] AGE: 22 Location: [facility] Re05/27/18 SEX: F Status: REG REF SPEC: [id number] CECILIA: 05/27/181140 [facility] DR: Mariposa Langston MD REQ: [id number] RECD: 05/27/183324 STATUS: COMP _ SOURCE: CER/VAG/RE SPDESC: ORDERED: Grp B Strp Scrn COMMENTS: [id number] QUERIES: Is Patient Penicillin Allergic? N Is patient penicillin allergic and/or sensitivities needed? N Provider Requisition # [id number]_ Procedure Result Reported Site Group B Strep Culture Screen Final 05/29/18- 1050 ML Group B Strep Screen Negative * ML - Main Lab . END OF REPORT DEPARTMENT OF PATHOLOGY, [address] [place] [address] Edgard Cleveland M.D. Director [facility] # [id number] 9 SEE RESULT BELOW Name: GAMAL ALEXANDRA : [address]: Mariposa Langston MD Acct: [id number] Unit: [id number] AGE: 22 Location: [facility] Re05/10/18 SEX: F Status: DEP REF SPEC: [id number] CECILIA: 05/10/[address] [facility] [address]: Mariposa Langston MD REQ: [id number] RECD: 05/10/18 STATUS: SHANICE MCCANN DR: Mavis Primary Care Phys,NOPCP _ SOURCE: URINE SPDESC: ORDERED: Urine Culture Procedure Result Reported Site Urine Culture Final 05/12/18- 0816 ML No growth of clinically significant organisms * ML - Main Lab . END OF REPORT DEPARTMENT OF PATHOLOGY, [address] [address] Edgard Cleveland M.D. Director [facility] # [id number] 10 SEE RESULT BELOW Name: AGMAL ALEXANDRA : [address]: Griselda Dove [facility] Acct: [id number] Unit: [id number] AGE: 22 Location: [facility] Re05/09/18 SEX: F Status: REG REF SPEC: [id number] CECILIA: 05/09/[address]: Griselda Dove CNM REQ: [id number] RECD: 05/09/18 STATUS: COMP _ SOURCE: URINE SPDESC: ORDERED: Urine Culture COMMENTS: [id number] Urine Source: Random Procedure Result Reported Site Urine Culture Final 05/11/18- 0835 ML No growth of clinically significant organisms * ML - Main Lab . END OF REPORT DEPARTMENT OF PATHOLOGY, [address] [place] [address] Edgard Cleveland M.D. Director [facility] # [id number] 11 A NEGATIVE results indicates there is no evidence of membrane rupture. 12 SEE RESULT BELOW Name: GAMAL ALEXANDRA : [address]: Luisana Tse MD Acct: [id number] Unit: [id number] AGE: 22 Location: [facility] Re05/03/18 SEX: F Status: DEP REF SPEC: [id number] CECILIA: 05/03/[address] [facility] [address]: Luisana Tse MD REQ: [id number] RECD: 05/03/18 STATUS: SHANICE MCCANN DR: Mavis Primary Care Phys,[facility] _ SOURCE: URINE SPDESC: ORDERED: Urine Culture Procedure Result Reported Site Urine Culture Final 05/05/18 0710 ML No growth of clinically significant organisms * ML - Main Lab . END OF REPORT DEPARTMENT OF PATHOLOGY, [address] [place] [address] Edgard Cleveland M.D. Director [facility] # [id number] 13 [id number] 14 [id number] 15 REFERENCE VALUE Cutoff: 3.0 16 ADDITIONAL INFORMATION This report is intended for use in clinical monitoring and management of patients. It is not intended for use in employment-related testing. This test was developed and its performance characteristics determined by [facility] in a manner consistent with CLIA requirements. This test has not been cleared or approved by the U.S. Food and Drug Administration. Test Performed by: [facility] [address] [place] [address] 17 REFERENCE VALUE Cutoff: 500 18 REFERENCE [...] 100 27 Metabolite of heroin 28 Lortab, [place], Vicodin; Also a very minor metabolite of [...] its performance characteristics determined by [facility] in a manner consistent with CLIA requirements. This test has not been cleared or approved by the U.S. Food and Drug Administration. Test Performed by: [facility] - [facility] [employer] [address] [place] [phone] [id number] RESULT: 58 RESULT: 59 RESULT: Screen [...] its performance characteristics determined by [facility] in a manner consistent with CLIA requirements. This test has not been cleared or approved by the U.S. Food and Drug Administration. Test Performed by: [facility] [employer] [facility] [employer] [address] [place] [phone] 62 No aneuploidy detected. 63 No aneuploidy detected. 64 No aneuploidy detected. 65 Female: No aneuploidy detected. 66 [id number] 67 Therapeutic target for the treatment of diabetes mellitus patients is <7% HBA1C, and in selective patients <6.0%. Please refer to [place] [employer] diabetic care guidelines for further information. 68 [id number] 69 Warning: A positive result is not [...] its performance characteristics determined by [facility] in a manner consistent with CLIA requirements. This test has not been cleared or approved by the U.S. Food and Drug Administration. 72 Test Performed by: [facility] - [facility] [address] [place] [address] 73 SEE RESULT BELOW Name: GAMAL ALEXANDRA : [address]: Betsy Diallo [facility] Acct: [id number] Unit: [id number] AGE: 22 Location: [facility] Re12/12/17 SEX: F Status: REG REF SPEC: [id number] CECILAI: 12/12/17-[address]: Betsy Diallo [facility] REQ: [id number] RECD: 12/12/17 STATUS: COMP _ SOURCE: URINE SPDESC: ORDERED: Urine Culture COMMENTS: [id number] Urine Source: Random Procedure Result Reported Site Urine Culture Final 12/14/17- 0938 ML No growth of clinically significant organisms * ML - Main Lab . END OF REPORT DEPARTMENT OF PATHOLOGY, [address] [place] [address] Edgard Cleveland M.D. Director [facility] # [id number] 74 SEE RESULT BELOW Name: GAMAL ALEXANDRA : [address]: Betsy Diallo CNM Acct: [id number] Unit: [id number] AGE: 22 Location: [facility] Re12/12/17 SEX: F Status: REG REF SPEC: [id number] CECILIA: 12/12/17-[address] [facility] [address]: Betsy Diallo CNM REQ: [id number] RECD: 12/13/17 STATUS: SOUT _ ORDERED: TP IMAGE ANALYS COMMENTS: [id number] Negative for Intraepithelial lesion or Malignancy A. [...] was evaluated with the assistance of the [employer] Test Imaging System. Due to cytologic findings at the check viewer microscope, comprehensive manual rescreening by a Brush Loader And Handle Attacher may be required. The Pap Smear is [...] years. END OF REPORT DEPARTMENT OF PATHOLOGY, [address] [place] [address] Edgard Cleveland M.D. Director [facility] # [id number] Procedures Date Code Description Status 11/04/2018 17857 Echography Transvaginal Completed 08/19/2018 32058 Insert Intrauterine Device Completed 06/19/2018 47633 Obstetric Care Routine Completed 05/30/2018 63520 Injection Intramuscular Or Subcutaneous Completed 05/13/2018 51851 Biophysical Profile Without Non Stress Test Completed 05/13/2018 33349 Echography Uterus Follow-Up Or Repeat Completed 05/10/2018 74407 Non-Stress Test Completed 04/15/2018 50770 Echography Uterus Follow-Up Or Repeat Completed 02/11/2018 56388 Echography Uterus Follow-Up Or Repeat Completed 12/12/2017 15070 OB Ultrasound First Trimester Completed Encounters Type Date Location Provider Dx Diagnosis Office Visit 02/03/2019 [facility] Hudson Ackerman, R10.2 Pelvic and perineal 8:20a [place] pain Office Visit 11/03/2018 [facility] Luisana Tse, R10.2 Pelvic and perineal 8:45a pain Office Visit 09/23/2018 [facility] Luisana Tse, Z30.431 Encounter for routine 2:45p checking of intrauterine contracep dev Office Visit 05/10/2018 [facility] Mariposa Langston MD O16.3 Unspecified maternal 9:00a hypertension, third trimester Plan of Treatment 02/03/2019 - Hudson Ackerman M.D.R10.2 Pelvic and perineal painComments:sono appears normalcontinued crampiness . has tried nsaids sans reliefnot interested in further suppression. no good alternatives to iud so wants to keep it.will try empiric doxycyline in case of low grade infx
[2019-03-03 18:28] LABS: HCG Pregnancy < 0.60 mIU/mL
[2019-03-03 19:15] VITALS: BP 109/66
== END 2019-03-03 18:32 | disposition home or self-care (01) ==
LOC: ED 16:53
DX: R07.9 Chest pain, unspecified (principal); I45.6 Pre-excitation syndrome; I10 Essential (primary) hypertension; F17.210 Nicotine dependence, cigarettes, uncomplicated; Z88.0 Allergy status to penicillin
CPT/HCPCS: 36415; 71046; 80053; 84484; 84702; 85025; 85610; 93005; 99282

== ENCOUNTER 2019-05-05 18:54 | Emergency (ER) | payer BC, OTHER ==
--- OUTSIDE RECORDS SUMMARY | 2019-05-05 19:00 | XMS REPORT | Summary of Care ---
:1995 Author Organization [facility] Address [address] [place] [address] Care Team Providers Name Role Phone Unavailable Primary Care Provider Unavailable Reason for Visit Reason Comments Follow Up Pt. in for a Follow Up on WPW. Holter done on 03/05/19. Pt. reports some SOB and Dizziness, Medication Management Pt. reports unable to tolerate Diovan. Encounter Details Date Type Department Care Team Description 04/08/2019 Office Visit WilliamBernarda Wynn, W (Vito- Parkinson-White syndrome) (Primary Dx); Cardiology MANAGER ADULT Essential hypertension [address] [place] [address] [place] [address] Allergies Active Allergy Reactions Severity Noted Date Comments Zosyn Anaphylaxis 10/09/2018 documented as of this encounter (statuses as of 04/08/2019) Medications Medication Sig Dispensed Refills Start Date End Date Status famotidine (PEPCID) Take 40 mg by 0 Active 40 MG Oral Tab mouth DAILY. nadolol (CORGARD) Take 1 Tab by 30 Tab 3 04/08/2019 Active 20 MG Oral Tab mouth DAILY. valsartan (DIOVAN) Take 1 Tab by 30 Tab 11 11/27/2018 04/08/2019 Discontinued 80 MG Oral Tab mouth DAILY. 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 Heart palpitations 06/13/2012 documented as of this encounter (statuses as of 04/08/2019) Immunizations Name Administration Dates Next Due DTAP Vaccine 12/05/2001, 02/25/1998, 05/25/1997, 03/23/1997, 01/18/1997 HIB 02/25/1998, 05/25/1997, 03/23/1997, 01/18/1997 Hepatitis A Vaccine Peds 04/13/2008, 06/25/2007 Hepatitis B Vaccine 05/25/1997, 01/18/1997, 1996 Human Papillomavirus 10/04/2010 MENINGOCOCCAL CONJUGATE VACCINE 08/18/2008 MMR VACCINE 12/05/2001, 1997 Polio - Inactivated Vaccine 12/05/2001, 1997, 03/23/1997, 01/18/1997 TDAP Vaccine 04/13/2008 Varicella Vaccine Live 06/16/2007, 1997 documented as of this encounter Social History Tobacco Use Types Packs/Day Years Used Date Current Every Day Smoker Cigarettes 0.5 3.5 Smokeless Tobacco: Never Used Alcohol Use Drinks/Week oz/Week Comments Yes Sex Assigned at Date Recorded Not on file Job Start Date Occupation Industry Not on file Not on file Not on file Travel History Travel Start Travel End No recent travel history available. documented as of this encounter Last Filed Vital Signs Vital Sign Reading Time Taken Comments Blood Pressure 140/82 04/08/2019 2:27 PM EDT Pulse 96 04/08/2019 2:27 PM EDT Temperature - - Respiratory Rate - - Oxygen Saturation - - Inhaled Oxygen Concentration - - Weight 116.6 kg (257 lb) 04/08/2019 2:27 PM EDT Height 167.6 cm (5' 6") 04/08/2019 2:27 PM EDT Body Mass Index 41.48 04/08/2019 2:27 PM EDT documented in this encounter Patient Instructions Patient InstructionsHuBernarda hudson CRNP - 04/08/2019 2:20 PM EDTWould try nadolol 20 mg ( half a table every other day for a week then increase to 10 mg daily) Continue to monitor heart rate and blood pressure Stay hydrated Try CPAP if able Smoking cessation Follow up 6 months documented in this encounter Plan of Treatment Date Type Specialty Care Team Description 10/07/2019 Office Visit Cardiology Bernarda Waters CRNP [address] [place] [address] [phone] Health Maintenance Due Date Last Done Comments PAP SMEAR 1996 PNEUMOCOCCAL 0-64 YRS (1 of 1 - 2002 PPSV23) DEPRESSION SCREENING 2008 HPV IMMUNIZATION SERIES (2 - 04/06/2011 10/04/2010 Female 2-dose series) INFLUENZA VACCINE (#1) 2019 MENINGOCOCCAL VACCINE IMM Aged Out 08/18/2008 No longer eligible based on patient's age to complete this topic HIV SCREENING Completed 02/13/2012 documented as of this encounter Results Not on filedocumented in this encounter Visit Diagnoses Diagnosis WPW (Fgrck-Pqqqdivrc-Cmslq syndrome) - Primary Anomalous atrioventricular excitation Essential hypertension Unspecified essential hypertension documented in this encounter Insurance Payer Benefit Plan / Subscriber ID Effective Dates Phone Address Type Group [facility]ESS xxxxxxxxxxxx 2019-Present [facility] PPO Guarantor Name Account Type Relation to Date of Phone Billing Address Patient Anaid Islas Personal/Family 1995 [address] (Home) [place], [place] [phone] (Work) documented as of this encounter Advance Directives Code Status Date Activated Date Inactivated Comments Full Code 10/10/2018 9:35 AM 10/10/2018 2:12 PM Does the patient have decision making capacity? Yes Order was discussed with: Patient I discussed all options and patient/surrogate requested and agreed to: Full Code
[2019-05-05 19:08] VITALS: BP 110/75
--- NOTE | 2019-05-05 19:41 | UC ---
Complaint Female HPI - HPI Summary HPI Summary: 23-year-old female who has had urinary frequency over the past few days. Her last menstrual period is in early March. She was on Mirena but was taken off of that. She states over the past couple of days she has vomited 2 times. - History Of Current Complaint Chief Complaint: UCGU Stated Complaint: UTI Time Seen by Provider: 05/05/19 18:55 Hx Obtained From: Patient Hx Last Menstrual Period: Beginning of March ?: No - possibility of per the patient. Onset/Duration: Gradual Onset Timing: Intermittent Severity Initially: Mild Severity Currently: Mild Pain Intensity: 6 Character: Not Applicable - Patient is mostly having urinary frequency but no burning on urination. Aggravating Factor(s): Urination - Urinary frequency Alleviating Factor(s): Nothing Associated Signs And Symptoms: Positive: Vomiting(# Of Episodes =) - Patient vomited 2 times over the past couple of days. - Allergies/Home Medications Allergies/Adverse Reactions: Allergies Allergy/AdvReac Type Severity Reaction Status Date / Time Penicillins Allergy Anaphylatic Verified 03/26/19 12:01 Shock Home Medications: Home Medications Famotidine [Acid Controller] 20 mg PO DAILY 05/05/19 [History Confirmed 05/05/19 ] PMH/Surg Hx/FS Hx/Imm Hx Previously Healthy: Yes Other History Of: Negative For: HIV, Hepatitis B, Hepatitis C, Anticoagulant Therapy - Surgical History Surgical History: Yes Surgery Procedure, Year, and Place: Tonsillectomy age 5, 3 CARDIAC ABLATION NOVEMBER 2011/2013/2016. gallbladder surgery september 2018 - Family History Known Family History: Positive: Renal Disease - kidney stone Negative: Cardiac Disease, Hypertension, Diabetes - Social History Alcohol Use: None Substance Use Type: None Smoking Status (MU): Light Every Day Tobacco Smoker Type: Cigarettes Amount Used/How Often: 1/2 ppd Length of Time of Smoking/Using Tobacco: 2 years Have You Smoked in the Last Year: No Household Exposure Type: Cigarettes - Immunization History Most Recent Influenza Vaccination: 06/10/18 Most Recent Pneumonia Vaccination: Unknown Vaccination Up to Date: Yes Review of Systems All Other Systems Reviewed And Are Negative: Yes Gastrointestinal: Positive: Vomiting - Twice over the past 2 days Genitourinary: Positive: Frequency Is Patient Immunocompromised?: No Physical Exam Triage Information Reviewed: Yes Appearance: Well-Appearing, No Pain Distress, Well-Nourished Vital Signs: Initial Vital Signs Temp 97.7 F 05/05/19 19:03 Pulse 98 05/05/19 19:03 Resp 18 05/05/19 19:03 BP 110/75 05/05/19 19:03 Pulse Ox 99 05/05/19 19:03 Vital Signs Reviewed: Yes Eyes: Positive: Conjunctiva Clear ENT: Positive: Hearing grossly normal, Pharynx normal, TMs normal, Uvula midline Neck: Positive: Supple, Nontender, No Lymphadenopathy Respiratory: Positive: Lungs clear, Normal breath sounds, No respiratory distress, No accessory muscle use Cardiovascular: Positive: RRR, No Murmur, Pulses Normal, Brisk Capillary Refill Abdomen Description: Positive: Nontender, No Organomegaly, Soft. Negative: CVA Tenderness (R), CVA Tenderness (L), Hepatomegaly, Splenomegaly Bowel Sounds: Positive: Present Musculoskeletal Exam: Normal Neurological Exam: Normal Psychological Exam: Normal Skin Exam: Normal Complaint Female Dx - Course Course Of Treatment: Patient is comfortable here. Urinalysis is negative for urinary tract infection. The urine test was positive. Permission to discuss test results in front of the was obtained by the nurse when she had the patient alone. The patient followed up with Dr. Langston for her first and will continue with Dr. Langston for this . I advised her to call tomorrow and make an appointment for follow-up. - Differential Dx/Diagnosis Provider Diagnosis: Positive urine test Discharge ED - Sign-Out/Discharge Documenting (check all that apply): Patient Departure All imaging exams completed and their final reports reviewed: No Studies - Discharge Plan Condition: Good Disposition: HOME Patient Education Materials: (ED) Referrals: No Primary Care Phys,NOPCP [Primary Care Provider] - Mariposa Langston MD [Medical Doctor] - Additional Instructions: Increase fluids, follow-up with your [employer] provider by phone tomorrow to make an appointment for further follow-up with the . - Billing Disposition and Condition Condition: GOOD Disposition: Home
== END 2019-05-05 19:51 | disposition home or self-care (01) ==
LOC: UCEAST 18:54
DX: O21.9 Vomiting of pregnancy, unspecified (principal); O99.89 Other specified diseases and conditions complicating pregnancy, childbirth and the puerperium; O99.330 Smoking (tobacco) complicating pregnancy, unspecified trimester; R35.0 Frequency of micturition; F17.210 Nicotine dependence, cigarettes, uncomplicated; Z88.0 Allergy status to penicillin
CPT/HCPCS: 81003; 84702; 99211; G0463

== ENCOUNTER 2019-06-01 23:18 | Emergency (ER) | payer BC, OTHER ==
--- NOTE | 2019-06-02 02:02 | ED ---
Respiratory - HPI Summary HPI Summary: The patient is a 23 y/o F presenting to [facility] with a chief complaint of cold symptoms for the last few days. She reports that she has been experiencing chills, body aches, and chest pain secondary to nonproductive cough. She denies any fever or sore throat. Currently, her symptoms are rated 7/10 in severity. She notes that she is but is unsure of the conception date as she switched from an IUD to oral control in December 2018 and has not had a period since then. She has had symptoms that she has had before with a previous including nausea, but she denies any vaginal discharge or bleeding. A0. PMHx: HTN, WPW, tonsillectomy. Light every day smoker, no EtOH , no substance use. Medications reviewed. Allergies noted. - History of Current Complaint Chief Complaint: EDShortnessOfBreath Stated Complaint: SOB PER PT Time Seen by Provider: 06/02/19 01:33 Hx Obtained From: Patient Onset/Duration: Gradual Onset, Lasting Days, Still Present Initial Severity: Mild Current Severity: Moderate Pain Intensity: 7 Character: Cough (Nonproductive) Sputum Amount: None Aggravating Factor(s): Nothing Alleviating Factor(s): Nothing Associated Signs and Symptoms: Chest Pain with Cough, Chills - Allergy/Home Medications Allergies/Adverse Reactions: Allergies Allergy/AdvReac Type Severity Reaction Status Date / Time Penicillins Allergy Anaphylatic Verified 03/26/19 12:01 Shock PMH/Surg Hx/FS Hx/Imm Hx Endocrine/Hematology History: Denies: Hx Anticoagulant Therapy, Hx Diabetes, Hx Thyroid Disease Cardiovascular History: Reports: Hx Hypertension - not on meds Denies: Hx Congestive Heart Failure, Hx Deep Vein Thrombosis, Hx Myocardial Infarction, Hx Pacemaker/ICD Comment Only: Other Cardiovascular Problems/Disorders - HEART ABLATION , SINUS TACHYCARDIA, [id number] SYDROME Respiratory History: Denies: Hx Asthma, Hx Chronic Obstructive Pulmonary Disease (COPD), Hx Lung Cancer, Hx Pneumonia, Hx Pulmonary Embolism GI History: Denies: Hx Gall Bladder Disease, Hx Gastrointestinal Bleed, Hx Ulcer, Hx Urosepsis History: Denies: Hx Kidney Stones, Hx Renal Disease Sensory History: Denies: Hx Eye Prosthesis, Hx Legally Blind, Hx Deafness, Hx Hearing Aid Opthamlomology History: Denies: Hx Eye Prosthesis, Hx Legally Blind Neurological History: Denies: Hx Dementia, Hx Migraine, Hx Seizures, Hx Transient Ischemic Attacks (TIA) Psychiatric History: Denies: Hx Anxiety, Hx Depression, Hx Panic Disorder, Hx Schizophrenia, Hx Bipolar Disorder - Surgical History Surgical History: Yes Surgery Procedure, Year, and Place: Tonsillectomy age 5, 3 CARDIAC ABLATION NOVEMBER 2011/2016. gallbladder surgery september 2018 - Immunization History Date of Tetanus Vaccine: Up to date Date of Influenza Vaccine: None Infectious Disease History: No Infectious Disease History: Denies: Hx Clostridium Difficile, Hx Hepatitis, Hx Human Immunodeficiency Virus (HIV), History Other Infectious Disease, Traveled Outside the [place] in Last 30 Days - Family History Known Family History: Positive: Renal Disease - kidney stone Negative: Cardiac Disease, Hypertension, Diabetes - Social History Alcohol Use: None Hx Substance Use: No Substance Use Type: Reports: None Hx Tobacco Use: Yes Smoking Status (MU): Light Every Day Tobacco Smoker Type: Cigarettes Amount Used/How Often: 1/2 ppd Length of Time of Smoking/Using Tobacco: 2 years Have You Smoked in the Last Year: No Review of Systems - ROS Summary Review of Systems Summary: Home Medications Medication Instructions Recorded Confirmed Type Famotidine [Acid Controller] 20 mg PO DAILY 05/05/19 05/05/19 History Positive: Chills. Negative: Fever Negative: Sore Throat Positive: Chest Pain - secondary to cough Positive: Cough Positive: Nausea Negative: discharge, other - vaginal bleeding Positive: Myalgia - body aches All Other Systems Reviewed And Are Negative: Yes Physical Exam - Summary Physical Exam Summary: General: Well-developed, Obese female. No acute distress. HEENT: Normocephalic, Atraumatic. Eyes: Conjuctiva normal, PERRL. Ears: TMs within normal limits. Nares: (-) discharge, (-) erythema. Oropharynx: Clear, mucous membranes moist, (-) exudates. Neck: Soft, FROM, (-) lymphadenopathy, (-) thyromegaly, (-) JVD. Cardiovascular: Normal sinus rhythm, (-) murmur. Lungs: Clear to auscultation bilaterally (-) wheezes, (-) rales, (-) rhonchi. Abdomen: Soft, non-tender, non-distended, (-) organomegaly, normal bowel sounds. Back: (-) CVA tenderness Extremities: No edema. Skin: Warm, dry, (-) rash. Neuro: Alert and oriented x3, no focal deficits. Psychiatric: Mood normal, affect normal. Triage Information Reviewed: Yes Vital Signs On Initial Exam: Initial Vitals Temp Pulse Resp BP Pulse Ox 97 F 106 16 124/72 100 06/01/19 23:19 06/01/19 23:19 06/01/19 23:19 06/01/19 23:19 06/01/19 23:19 Vital Signs Reviewed: Yes Procedures - Sedation Patient Received Moderate/Deep Sedation with Procedure: No Diagnostics - Vital Signs Vital Signs Temp Pulse Resp BP Pulse Ox 06/01/19 23:19 97 F 106 16 124/72 100 - Laboratory Lab Statement: Any lab studies that have been ordered have been reviewed, and results considered in the medical decision making process. Re-Evaluation - Re-Evaluation First Eval Re-Evaluation Time: 20:50 Change: Improved Comment: I have discussed results with the patient and symptoms have improved. Discussed symptoms that warrant immediate return to ED. Disposition - Course Course Of Treatment: 23-year-old female with URI symptoms. Early . Swab negative. Advised plenty of fluids and rest. Tylenol. Follow-up with OB/ [employer]ER for dating. Follow-up with PCP. Follow-up sooner for any worsening symptoms. - Diagnoses Provider Diagnoses: Viral bronchitis, Tobacco use Discharge ED - Sign-Out/Discharge Documenting (check all that apply): Patient Departure - Patient will be discharged home. - Discharge Plan Condition: Stable Disposition: HOME Patient Education Materials: Acute Bronchitis (ED) Referrals: Care [facility] [Outside] - 3 Days [facility] [Outside] - 3 Days Additional Instructions: Please follow up with your primary care physician within three days. Please return to ED for any new or worsening symptoms. - Billing Disposition and Condition Condition: STABLE Disposition: Home - Attestation Statements Document Initiated by Scribe: Yes Documenting Scribe: Crystal Lou Provider For Whom Scribe is Documenting (Include Credential): Dr. Maribel Magana MD Scribe Attestation: Crystal Esteves, scribed for Dr. Maribel Magana MD on 06/02/19 at 0608. Scribe Documentation Reviewed: Yes Provider Attestation: The documentation as recorded by the yoliibe, Crystal Lou accurately reflects the service I personally performed and the decisions made by me, Dr. Maribel Magana MD Status of Tammie Document: Viewed
[2019-06-02 02:35] LABS: Influenza A Molecular NEGATIVE (Negative); Influenza B Molecular NEGATIVE (Negative)
[2019-06-02 03:05] VITALS: BP 140/69
== END 2019-06-02 02:55 | disposition home or self-care (01) ==
LOC: ED 23:18
DX: J20.8 Acute bronchitis due to other specified organisms (principal); R07.9 Chest pain, unspecified; R05 Cough; R68.83 Chills (without fever); I10 Essential (primary) hypertension; I45.6 Pre-excitation syndrome; F17.210 Nicotine dependence, cigarettes, uncomplicated; Z79.3 Long term (current) use of hormonal contraceptives; Z88.0 Allergy status to penicillin; Z33.1 Pregnant state, incidental
CPT/HCPCS: 99282

== ENCOUNTER 2019-08-02 17:19 | Emergency (ER) | payer BC ==
[2019-08-02 17:45] LABS: ABS Eosinophils 0.1 10^3/ul (0-0.6); ABS Lymphocytes 2.4 10^3/ul (1.0-4.8); ABS Monocytes 0.7 10^3/ul (0-0.8); ABS Neutrophils 9.8 10^3/ul (1.5-7.7); Eosinophil % 1.1 %; Hematocrit 38 % (35-47); Lymphocyte % 18.1 %; Mean Corpuscular HGB Conc 34 g/dL (31-36); Mean Corpuscular Hemoglobin 32 pg (27-31); Mean Corpuscular Volume 94 fL (80-97); Mean Platelet Volume 9.6 fL (7.4-10.4); Platelet Count 232 10^3/uL (150-450); Red Blood Count 4.05 10^6 /uL (3.70-4.87); Red Cell Distribution Width 13 % (10-15)
[2019-08-02 17:58] LABS: INR 0.93 (0.82-1.09)
[2019-08-02 18:06] LABS: Albumin 4.1 g/dL (3.2-5.2); Albumin/Globulin Ratio 1.6 (1-3); BUN/Creatinine Ratio 16.7 (8-20); Calcium 9.2 mg/dL (8.6-10.3); EGFR African American 195.7 (>60); EGFR Non-African American 161.7 (>60); Globulin 2.6 g/dL (2-4); Potassium 3.6 mmol/L (3.5-5.0); Total Bilirubin 0.2 mg/dL (0.2-1.0); Total Protein 6.7 g/dL (6.4-8.9)
--- NOTE | 2019-08-02 18:14 | ED ---
Palpitations / Dysrhythmia - HPI Summary HPI Summary: Pt is a 23 y/o F presenting to the ED with a chief complaint of palpitations initially onset this morning. She describes the palpitations as fast, and they are usually onset by movement and accompanied by lightheadedness and shortness of breath. Notes that she had some chest pains on the way up here and earlier today. Hx WPW, tachycardia, and HTN, currently off antiarrhythmics.. No other medical problems. No hx blood clots. Pt currently 18wks . - History of Current Complaint Chief Complaint: EDChestPainROMI Time Seen by Provider: 08/02/19 17:51 Hx Obtained From: Patient Onset/Duration: Sudden Onset, Lasting Hours, Still Present Timing: Constant Severity Initially: Moderate Severity Currently: Moderate Character: Fast Aggravating: Exertion Alleviating: Nothing Associated Signs & Symptoms: Lightheadedness, Chest Pain, Shortness of Breath - Allergy/Home Medications Allergies/Adverse Reactions: Allergies Allergy/AdvReac Type Severity Reaction Status Date / Time Penicillins Allergy Anaphylatic Verified 08/02/19 17:30 Shock PMH/Surg Hx/FS Hx/Imm Hx Previously Healthy: Yes Endocrine/Hematology History: Denies: Hx Anticoagulant Therapy, Hx Diabetes, Hx Thyroid Disease Cardiovascular History: Reports: Hx Hypertension - not on meds Denies: Hx Congestive Heart Failure, Hx Deep Vein Thrombosis, Hx Myocardial Infarction, Hx Pacemaker/ICD Comment Only: Other Cardiovascular Problems/Disorders - HEART ABLATION , SINUS TACHYCARDIA, [id number] SYDROME Respiratory History: Denies: Hx Asthma, Hx Chronic Obstructive Pulmonary Disease (COPD), Hx Lung Cancer, Hx Pneumonia, Hx Pulmonary Embolism GI History: Denies: Hx Gall Bladder Disease, Hx Gastrointestinal Bleed, Hx Ulcer, Hx Urosepsis History: Denies: Hx Kidney Stones, Hx Renal Disease Sensory History: Denies: Hx Eye Prosthesis, Hx Legally Blind, Hx Deafness, Hx Hearing Aid Opthamlomology History: Denies: Hx Eye Prosthesis, Hx Legally Blind Neurological History: Denies: Hx Dementia, Hx Migraine, Hx Seizures, Hx Transient Ischemic Attacks (TIA) Psychiatric History: Denies: Hx Anxiety, Hx Depression, Hx Panic Disorder, Hx Schizophrenia, Hx Bipolar Disorder - Surgical History Surgery Procedure, Year, and Place: Tonsillectomy age 5, 3 CARDIAC ABLATION NOVEMBER 2011/2016. gallbladder surgery september 2018 - Immunization History Date of Tetanus Vaccine: Up to date Date of Influenza Vaccine: None Infectious Disease History: No Infectious Disease History: Denies: Hx Clostridium Difficile, Hx Hepatitis, Hx Human Immunodeficiency Virus (HIV), History Other Infectious Disease, Traveled Outside the [place] in Last 30 Days - Family History Known Family History: Positive: Renal Disease - kidney stone Negative: Cardiac Disease, Hypertension, Diabetes - Social History Alcohol Use: None Hx Substance Use: No Substance Use Type: Reports: None Hx Tobacco Use: Yes Smoking Status (MU): Light Every Day Tobacco Smoker Type: Cigarettes Amount Used/How Often: 1/2 ppd Length of Time of Smoking/Using Tobacco: 2 years Have You Smoked in the Last Year: No Review of Systems Positive: Palpitations, Chest Pain Positive: Shortness Of Breath Neurological: Other - lightheadedness All Other Systems Reviewed And Are Negative: Yes Physical Exam - Summary Physical Exam Summary: Constitutional: Obese, Well-nourished, Alert. (-) Distressed Skin: Warm, Dry HENT: Normocephalic; Atraumatic Eyes: Conjunctiva normal Neck: Musculoskeletal ROM normal neck. (-) JVD, (-) Stridor, (-) Nuchal rigidity Cardio: Rhythm regular, rate tachycardic, Heart sounds normal; Intact distal pulses; Radial pulses are 2+ and symmetric. (-) Murmur Pulmonary/Chest wall: Effort normal. (-) Respiratory distress, (-) Wheezes, (-) Rales Abd: Soft, (-) tenderness, (-) Distension, (-) Guarding, (-) Rebound Musculoskeletal: (-) Edema Lymph: (-) Cervical adenopathy Neuro: Alert, Oriented x3 Psych: Mood and affect Normal Triage Information Reviewed: Yes Vital Signs On Initial Exam: Initial Vitals Temp Pulse Resp BP Pulse Ox 97.3 F 111 16 156/88 100 08/02/19 17:28 08/02/19 17:28 08/02/19 17:28 08/02/19 17:28 08/02/19 17:28 Vital Signs Reviewed: Yes Procedures - Sedation Patient Received Moderate/Deep Sedation with Procedure: No Diagnostics - Vital Signs Vital Signs Temp Pulse Resp BP Pulse Ox 08/02/19 17:28 97.3 F 111 16 156/88 100 - Laboratory Lab Results: Lab Results 08/02/19 08/02/19 08/02/19 Range/Units 17:31 17:31 17:31 WBC 13.0 H (3.5-10.8) 10^3/uL RBC 4.05 (3.70-4.87) 10^6 /uL Hgb 13.0 (12.0-16.0) g/dL Hct 38 (35-47) % MCV 94 (80-97) fL MCH 32 H (27-31) pg MCHC 34 (31-36) g/dL RDW 13 (10-15) % Plt Count 232 (150-450) 10^3/uL MPV 9.6 (7.4-10.4) fL Neut % (Auto) 75.0 % Lymph % (Auto) 18.1 % [place] % (Auto) 5.6 % Eos % (Auto) 1.1 % Baso % (Auto) 0.2 % Absolute Neuts (auto) 9.8 H (1.5-7.7) 10^3/ul Absolute Lymphs (auto) 2.4 (1.0-4.8) 10^3/ul Absolute Monos (auto) 0.7 (0-0.8) 10^3/ul Absolute Eos (auto) 0.1 (0-0.6) 10^3/ul Absolute Basos (auto) 0.0 (0-0.2) 10^3/ul Absolute Nucleated RBC 0.0 10^3/ul Nucleated RBC % 0.0 INR (Anticoag Therapy) 0.93 (0.82-1.09) Sodium 136 (135-145) mmol/L Potassium 3.6 (3.5-5.0) mmol/L Chloride 104 (101-111) mmol/L Carbon Dioxide 24 (22-32) mmol/L Anion Gap 8 (2-11) mmol/L BUN 8 (6-24) mg/dL Creatinine 0.48 L (0.51-0.95) mg/dL Est GFR ( Amer) 195.7 (>60) Est GFR (Non-Af Amer) 161.7 (>60) BUN/Creatinine Ratio 16.7 (8-20) Glucose 94 (70-100) mg/dL Calcium 9.2 (8.6-10.3) mg/dL Total Bilirubin 0.20 (0.2-1.0) mg/dL AST 12 L (13-39) U/L ALT 9 (7-52) U/L Alkaline Phosphatase 57 (34-104) U/L Troponin I 0.00 (<0.03) ng/mL Total Protein 6.7 (6.4-8.9) g/dL Albumin 4.1 (3.2-5.2) g/dL Globulin 2.6 (2-4) g/dL Albumin/Globulin Ratio 1.6 (1-3) Result Diagrams: 08/02/19 17:31 08/02/19 17:31 Lab Statement: Any lab studies that have been ordered have been reviewed, and results considered in the medical decision making process. - EKG 1722 Cardiac Rate: NL - 99bpm EKG Rhythm: Sinus Rhythm ST Segment: Normal Ectopy: None EKG Comparison: No Significant Change Summary of EKG Findings: An EKG at 1722 reveals normal sinus rhythm 99bpm with mild ST depressions in leads II and v4-v6, and mild ST elevations in aVR. No STEMI. No acute changes. When compared to prior on 11/19/18, no significant change. ED physician has reviewed and interpreted this EKG. Re-Evaluation - Re-Evaluation 1st re-eval Re-Evaluation Time: 18:30 Change: Unchanged Comment: Relayed cardiology's message to pt. Also discussed ordering a D-dimer. 2nd re-eval Re-Evaluation Time: 18:46 Change: Unchanged Comment: heart rate 157bpm. Course/Dx - Course Course Of Treatment: 23-year-old female with a history of WPW and hypertension not on medication who presents with palpitations and intermittent chest pain w shortness of breath. Chest Pain DDX: The patient is well appearing, with stable vitals (mild tachy to 100's). I suspect that the patient's CP and intermittent dyspnea are likely secondary to palpitations. Although less likely , differential also includes the following: --Pneumothorax: Equal breath sounds. --Cardiac tamponade: The history and physical are not concerning for tamponade. No Pulsus Paradoxus, no tachypnea. Unlikely. --Aortic dissection: The patient does not describe the classical tearing chest pain radiating into the back, pulses equal. Low suspicion. --PE: Vitals wnl (not hypoxic, tachycardic or tachypneic). Wells low risk, d dimer <200. --ACS: The initial EKG shows no ischemic changes. The initial troponin is not elevated. D/w patient about CXR, given that she is she would like to defer if possible. Lungs CTAB, no infectious symptoms. Patient was able to ambulate without any respiratory distress or dyspnea. O2 sat remained at 92-95% w ambulation and she did not experience any tachyarrhythmias. - Diagnoses Provider Diagnoses: Palpitations, WPW (Yokct-Cbapeqwiw-Flndz syndrome) Discharge ED - Sign-Out/Discharge Documenting (check all that apply): Patient Departure - Discharge Plan Condition: Stable Disposition: HOME Patient Education Materials: Heart Palpitations (DC) Referrals: [facility] [Outside] Additional Instructions: You were seen in the emergency department for rotations and shortness of breath. Your labs showed a slightly low magnesium and potassium, you're given both of these in the ER. We discussed your case with on-call operator receptionist recommends following up with your operator receptionist at [facility] to coordinate medications with your OB. Please follow up with your primary care doctor in next 2-3 days and return to emergency department for chest pain, trouble breathing, passing out, worsening or concerning symptoms. It was a pleasure taking care of you today. - Billing Disposition and Condition Condition: STABLE Disposition: Home - Attestation Statements Document Initiated by Tammie: Yes Documenting Scribe: Breann Downs Provider For Whom Tammie is Documenting (Include Credential): Marielle Roach MD. Scribe Attestation: I, Breann Downs, scribed for Marielle Roach MD. on 08/02/19 at 1956. Scribe Documentation Reviewed: Yes Provider Attestation: The documentation as recorded by the Breann chávez accurately reflects the service I personally performed and the decisions made by me, Marielle Roach MD. Status of Scribe Document: Viewed Consult Consult: 1820 - I spoke with Dr. Funez about the pt's presenting condition who recommends following up with cardiology to coordinate with [employer] about possibly placing the pt on rate control medications.
[2019-08-02] MEDS ORDERED: Potassium EFFERVESCENT TAB* 25 MEQ TAB.EFF PO ONE (18:22)
[2019-08-02 18:44] LABS: Magnesium 1.7 mg/dL (1.9-2.7)
[2019-08-02] MEDS ORDERED: Magnesium Oxide TAB* 400 MG PO ONE (18:55)
[2019-08-02 19:45] VITALS: BP 108/75
== END 2019-08-02 19:45 | disposition home or self-care (01) ==
LOC: ED 17:19
DX: O26.892 Other specified pregnancy related conditions, second trimester (principal); R00.2 Palpitations; R42 Dizziness and giddiness; R06.02 Shortness of breath; I45.6 Pre-excitation syndrome; Z3A.18 18 weeks gestation of pregnancy; I10 Essential (primary) hypertension; Z88.0 Allergy status to penicillin; Z87.891 Personal history of nicotine dependence
CPT/HCPCS: 36415; 80053; 83735; 84484; 85025; 85379; 85610; 93005; 99283

== ENCOUNTER 2019-09-18 22:58 | Emergency (ER) | payer MEDICAID ==
--- NOTE | 2019-09-18 23:30 | ED ---
HPI Chest Pain - HPI Summary HPI Summary: This patient is a 23 year old female presenting to [facility] with a chief complaint of chest pain, SOB and dizziness. She states she is 24 weeks , was prescribed a new thyroid medication, levothyroxine, by her OB, and experienced chest pain, SOB upon exertion, and dizziness this AM. She states she only had one low-dose of the levothyroxine so far, taken as prescribed. She states she had decreased activity. She called her OB 2 hours ago and they told her to come here. She states she has been hydrating and eating well. This is her 2nd , first one was full term. - History of Current Complaint Chief Complaint: EDChestWallPain Time Seen by Provider: 09/18/19 23:22 Hx Obtained From: Patient Hx Last Menstrual Period: Beginning of March Onset/Duration: Started Hours Ago Pain Intensity: 7 Pain Scale Used: 0-10 Numeric - Allergy/Home Medications Allergies/Adverse Reactions: Allergies Allergy/AdvReac Type Severity Reaction Status Date / Time Penicillins Allergy Anaphylatic Verified 08/02/19 17:30 Shock Home Medications: Home Medications Famotidine [Acid Controller] 20 mg PO DAILY 05/05/19 [History Confirmed 09/18/19 ] Acetaminophen 2 tab PO ONCE PRN 09/18/19 [History Confirmed 09/19/19] Butalb/Acetamin/Caff TAB* [Fioricet TAB*] 1 - 2 tab PO Q6HR PRN 09/18/19 [ History Confirmed 09/19/19] Levothyroxine TAB* [Synthroid 25 MCG TAB*] 1 tab PO DAILY 09/18/19 [History Confirmed 09/19/19] Vit37/Iron/Folic Acid [P[place]ata Chewable Tablet] 1 tab PO DAILY [History Confirmed 09/19/19] PMH/Surg Hx/FS Hx/Imm Hx Endocrine/Hematology History: Denies: Hx Anticoagulant Therapy, Hx Diabetes, Hx Thyroid Disease Cardiovascular History: Reports: Hx Hypertension - not on meds Denies: Hx Congestive Heart Failure, Hx Deep Vein Thrombosis, Hx Myocardial Infarction, Hx Pacemaker/ICD Comment Only: Other Cardiovascular Problems/Disorders - HEART ABLATION , SINUS TACHYCARDIA, [id number] SYDROME Respiratory History: Denies: Hx Asthma, Hx Chronic Obstructive Pulmonary Disease (COPD), Hx Lung Cancer, Hx Pneumonia, Hx Pulmonary Embolism GI History: Denies: Hx Gall Bladder Disease, Hx Gastrointestinal Bleed, Hx Ulcer, Hx Urosepsis History: Denies: Hx Kidney Stones, Hx Renal Disease Sensory History: Denies: Hx Eye Prosthesis, Hx Legally Blind, Hx Deafness, Hx Hearing Aid Opthamlomology History: Denies: Hx Eye Prosthesis, Hx Legally Blind Neurological History: Denies: Hx Dementia, Hx Migraine, Hx Seizures, Hx Transient Ischemic Attacks (TIA) Psychiatric History: Denies: Hx Anxiety, Hx Depression, Hx Panic Disorder, Hx Schizophrenia, Hx Bipolar Disorder - Surgical History Surgery Procedure, Year, and Place: Tonsillectomy age 5, 4 CARDIAC ABLATION NOVEMBER 2011/2016. gallbladder surgery september 2018 - Immunization History Date of Tetanus Vaccine: Up to date Date of Influenza Vaccine: None Infectious Disease History: No Infectious Disease History: Denies: Hx Clostridium Difficile, Hx Hepatitis, Hx Human Immunodeficiency Virus (HIV), History Other Infectious Disease, Traveled Outside the [place] in Last 30 Days - Family History Known Family History: Positive: Renal Disease - kidney stone Negative: Cardiac Disease, Hypertension, Diabetes - Social History Alcohol Use: None Hx Substance Use: No Substance Use Type: Reports: None Hx Tobacco Use: Yes Smoking Status (MU): Light Every Day Tobacco Smoker Type: Cigarettes Amount Used/How Often: 1/2 ppd Length of Time of Smoking/Using Tobacco: 2 years Have You Smoked in the Last Year: No Review of Systems Positive: Other - Decreased activity Positive: Chest Pain Positive: Shortness Of Breath Neurological/Mental Status: Other - Dizziness All Other Systems Reviewed And Are Negative: Yes Physical Exam - Summary Physical Exam Summary: Appearance: Well-appearing, Well-nourished, lying in bed comfortably Skin: Warm, dry, no obvious rash Eyes: sclera anicteric, no conjunctival pallor ENT: mucous membranes moist, pharynx appears normal Neck: Supple, nontender Respiratory: Clear to auscultation, no signs of respiratory distress Cardiovascular: Normal S1, S2. No murmurs. Normal distal pulses in tibial and radial bilaterally. Abdomen: Soft, nontender, normal active bowel sounds present Musculoskeletal: Normal, Strength/ROM Intact Neurological: A&Ox3, awake and alert, mentation is normal, speech is fluent and appropriate Psychiatric: affect is normal, does not appear anxious or depressed Triage Information Reviewed: Yes Vital Signs On Initial Exam: Initial Vitals Temp Pulse Resp BP Pulse Ox 96.0 F 101 20 119/65 98 09/18/19 23:02 09/18/19 23:02 09/18/19 23:02 09/18/19 23:02 09/18/19 23:02 Vital Signs Reviewed: Yes Procedures - Sedation Patient Received Moderate/Deep Sedation with Procedure: No Diagnostics - Vital Signs Vital Signs Temp Pulse Resp BP Pulse Ox 09/18/19 23:02 96.0 F 101 20 119/65 98 - Laboratory Result Diagrams: 09/19/19 00:07 09/19/19 00:07 Lab Statement: Any lab studies that have been ordered have been reviewed, and results considered in the medical decision making process. - Radiology CXR Radiology Interpretation Completed By: ED Physician Summary of Radiographic Findings: No acute process. Pending official radiology report. - EKG 2303 Cardiac Rate: Tachycardia - 101 BPM EKG Rhythm: Sinus Tachycardia Summary of EKG Findings: No STEMI. ED Physician has reviewed and interpreted this EKG. Re-Evaluation - Re-Evaluation First Eval Re-Evaluation Time: 07:14 Change: Unchanged Comment: She is a 23 Y/O F and has a Hx of daniels-parkinson right and has been off work since Saturday. She started levothyroxine and has been experiencing CP and SOB since Saturday. She reports on my exam that she still has SOB that is a 3 /4 in intensity and denies CP. Her labs are not proving a D-Dimer. She is currently on the fence for a VQ scan and will receive more levothyroxine to see if her CC is medication related. Second Eval Re-Evaluation Time: 08:30 Change: Improved Comment: Pt reports no SOB or CP following her medication. She states that she is however feeling slightly dizzy, which is any accepted side effect of the medication. She will be discharged home. Chest Pain Course/Dx - Course Course Of Treatment: This patient is a 23 year old female presenting to [facility] with a chief complaint of chest pain, SOB and dizziness. Labs reveal WBC 15.5 H , RBC 3.51 L, Hgb 11.4 L, Hct 34 L, MCH 33 H, Absolute Neuts 11.3 H, Creatinine 0.50 L, AST 11L, Total Protein 6.3 L. Patient will be signed out to Dr. Stanton at shift change 0700 pending pending VQ scan. - Diagnoses Provider Diagnoses: Chest pain, SOB (shortness of breath), Discharge ED - Sign-Out/Discharge Documenting (check all that apply): Sign-Out Patient Signing out patient TO: Phani Stanton - Discharge Plan Condition: Good Disposition: HOME Patient Education Materials: Chest Pain (ED), (ED), Shortness of Breath (ED) Referrals: [facility] [Provider Group] - 1 Week Additional Instructions: Call [facility] to discuss your levothyroxine. Follow up next week. RETURN TO THE EMERGENCY DEPARTMENT FOR ANY NEW OR WORSENING SYMPTOMS INCLUDING AN INCREASE IN CHEST PAIN AND SOB. - Billing Disposition and Condition Condition: GOOD Disposition: Home - Attestation Statements Document Initiated by Tammie: Yes Documenting Scribe: Desmond Law Provider For Whom Tammie is Documenting (Include Credential): Varun Lugo MD Scribe Attestation: Desmond Esteves, scribed for Varun Lugo MD on 09/19/19 at 1837. Scribe Documentation Reviewed: Yes Provider Attestation: The documentation as recorded by the Desmond chávez accurately reflects the service I personally performed and the decisions made by , Varun Lugo MD Status of Scribe Document: Viewed
--- OUTSIDE RECORDS SUMMARY | 2019-09-18 23:47 | XMS REPORT | Continuity of Care Document ---
:1995 External Reference #:[id number] Author Name Mariposa Langston MD Address [address] [place] [address] Problems Active Problems Provider Date Body mass index 40+ - severely obese Betsy Diallo CNM Onset: 12/12/2017 Gzwsl-Httrsmlsv-Jxuuk pattern Betsy Diallo CNM Onset: 03/22/2018 Note: Followed by cardiology Pelvic and perineal pain Hudson Ackerman M.D. Onset: 02/11/2019 Galactorrhea Luisana Tse MD Onset: 02/11/2019 Social History Type Date Description Comments Sex Unknown Cigarette Use Current Cigarette 2-3 cigarettes a day Smoker or less ETOH Use Denies alcohol use Tobacco Use Start: Unknown Patient is a current smoker, smokes every day Smoking Status Reviewed: 09/02/19 Patient is a current smoker, smokes every day Exercise Exercises rarely Type/Frequency Seat Belt/Car Seat Always uses seat belt Allergies, Adverse Reactions, Alerts Active Allergies Reaction Severity Comments Date Azithromycin 02/17/2019 Penicillins 08/31/2019 Inactive Allergies NKDA 12/12/2017 Medications Active Medications SIG Qnty Indications Ordering Date Provider Sulfamethoxazole/Trime take 1 tablet by 6tabs Red Camacho 08/28/2019 thoprim DS mouth twice JR, DO 800-160mg daily for 3 Tablets days. Nitrofurantoin take 1 tab by 10capmayela Tse, 08/27/2019 Macrocrystal mouth twice a MD Luisana 100mg day x5 days Capsules Obstetrix Dha 1 po qd 90units Hudson Jeff 08/18/2019 29-1&387mg Chavez Ackerman Misc Ranitidine HCL 1 tab by mouth 60tabs Griselda Dove, 07/28/2019 150mg once or twice a CNM Tablets day as needed for reflux Butalbital/Acetaminoph 1-2 tabs by 14tabs Griselda Dove, 07/28/2019 en/Caffeine mouth every 4-6 CNM 50-325-40mg hours as needed Tablets headache + Dha 1 by mouth every 180units Rowdynoheliachuck Dove, 06/04/2019 27-1&250mg day CNM THPK History Medications No Active Medications Unknown 06/04/2019 - 06/04/2019 Famotidine Take 1 Tablet By 60tabs Griselda Dove, 06/04/2019 - 40mg Tablets Mouth Daily. November CNM 07/28/2019 Increase To Twice Daily as Needed Medications Administered in Office Medication SIG Qnty Indications Ordering Provider Date PT SCRN Tbco Id as Non User Luisana Tse MD 08/27/2019 Injection Injection Rho (D) Immune Nurses 05/30/2018 Globulin, Human, One Dose Package Injection Immunizations CPT Code Status Date Vaccine Lot # [id number] Given 06/04/2019 Influenza Vaccine Quadrivalent Preser/Antibiotic [id number] Free Im Use 56744 Given 06/10/2018 Tetnus, Diptheria Toxoids And Acellular Pertussis, [id number] PT > 7Yrs Old 70451 Given 06/10/2018 Influenza Vaccine Quadrivalent Preser/Antibiotic [id number] Free Im Use Vital Signs Date Vital Result Comment 06/04/2019 8:06am BP Systolic 114 mmHg BP Diastolic 72 mmHg Height 66 inches 5'6" Weight 262.00 lb BMI (Body Mass Index) 42.3 kg/m2 Last Menstrual Period 4357394 2 Parity 1 03/31/2019 8:49am BP Systolic 112 mmHg BP Diastolic 68 mmHg Height 66 inches 5'6" Weight 257.00 lb BMI (Body Mass Index) 41.5 kg/m2 Last Menstrual Period 6607808 1 Parity 1 Results Test Acquired Date Facility Test Result H/L Range Note Laboratory test 09/02/2019 [facility] [place] <pending> [place] [address] /Yeast: [phone] Vaginal Dna Urine Culture And 08/27/2019 [facility] Urine SEE RESULT 1 [place] [address] Culture BELOW [phone] Drug Abuse 07/28/2019 [facility] Urine Negative Cutoff: W/Confirm, [place] [address] Alcohol mg/dL 10 [phone] Urine Amphetamine Negative ng/mL 2 Urine Barbiturates Negative ng/mL 3 Urine Benzodiazepines Negative ng/mL 4 Urine Cocaine Negative ng/mL 5 Urine Methadone Negative ng/mL Negative 6 Urine Opiates Negative ng/mL Negative 7 Urine Phencyclidine Negative ng/mL Cutoff: 25 Urine Tetrahydrocannabinol Negative ng/mL Cutoff: 50 8 GC/Chlamydia Dna 07/28/2019 [facility] Disclaimer (SEE NOTE) 9 Probe [place], [place] [address]31 [phone] Chlamydia trachomatis Cher Negative Negative Neisseria gonorrhoeae (GC) Cher Negative Negative PNL No 07/01/2019 [facility] Rubella Screen Immune Immune 10 Urine [place], [place] 1755501 [phone] Hemoglobin A1c 5.0 % Normal 4.0-5.6 11 Hepatitis B Surface Ag Nonreactive Nonreactive 12 Syphillis Igg W/Reflex RPR Negative Negative 13 CBC With No 07/01/2019 [facility] White Blood 11.0 10^3/uL High 3.5-10.8 [place] [address] Count [phone] Red Blood Count 4.02 10^6/uL Normal 3.70-4.87 Hemoglobin 12.8 g/dL Normal 12.0-16.0 Hematocrit 38 % Normal 35-47 Mean Corpuscular Volume 94 fL Normal 80-97 Mean Corpuscular Hemoglobin 32 pg High 27-31 Mean Corpuscular HGB Conc 34 g/dL Normal 31-36 Red Cell Distribution Width 13 % Normal 10-15 Platelet Count 199 10^3/uL Normal 150-450 Mean Platelet Volume 10.2 fL Normal 7.4-10.4 Type And Screen 07/01/2019 [facility] Patient Blood Type O Negative [place], [place] [id number] [phone] Antibody Screen NEGATIVE Lead 07/01/2019 [facility] Lead,Venous, B < 1.0 g/dL 0.0- 4.9 14 [place], [place] [address]39575 [phone] Venous/Capillary Venous Submitting Laboratory Phone [phone] HIV 1&2 p24 07/01/2019 [facility] HIV 4th [place] [address] Generation [phone] Urine Culture 07/01/2019 [facility] Urine SEE RESULT [address] [place] [address] Culture BELOW Sensitivities [phone] Laboratory 06/17/2019 [facility] Glucose 1 98 mg/dL Normal 70- 160 17 [place] [address] HR Post [phone] Prandial Panorama 06/17/2019 [facility] Report See Notes Normal 18 Test Summary Report Note See Notes Normal Trisomy 13 Age-Based Risk Fraction 07/7825 Normal Trisomy 13 Risk Score Text <1/10,000 (<0.01 <SEE NOTE> Normal 19 Trisomy 13 Risk Score Fraction <1/44597 Normal Trisomy 13 Result Text Low Risk Normal Trisomy 13 Result Comments See Notes Normal Trisomy 18 Age-Based Risk Fraction 07/2483 Normal Trisomy 18 Risk Score Text <1/10,000 (<0.01 <SEE NOTE> Normal 20 Trisomy 18 Risk Score Fraction <1/59820 Normal Trisomy 18 Result Text Low Risk Normal Trisomy 18 Result Comments See Notes Normal Trisomy 21 Age-Based Risk Fraction 07/1067 Normal Trisomy 21 Risk Score Text <1/10,000 (<0.01 <SEE NOTE> Normal 21 Trisomy 21 Risk Score Fraction <1/85764 Normal Trisomy 21 Result Text Low Risk Normal Trisomy 21 Result Comments See Notes Normal Monosomy X Age-Based Risk Fraction 1/255 Normal Monosomy X Risk Score <0.01 % Normal Monosomy X Risk Score Text <1/10,000 (<0.01 <SEE NOTE> Normal 22 Monosomy X Risk Score Fraction <1/88515 Normal Monosomy X Result Text Low Risk Normal Monosomy X Result Comments See Notes Normal Triploidy Result Text Low Risk Normal Triploidy Result Comments See Notes Normal Gender of Fetus Male Fraction (in %) 5.8 % Fraction 5.8% Footnotes See Notes 23 Boiler Plate Text See Notes 24 References See Notes 25 Approvals See Notes 26 Contacts See Notes 27 Urine Culture And 06/04/2019 [facility] Urine Culture SEE RESULT 28 Sensitivities [place] [address] BELOW [phone] 1 SEE RESULT BELOW Name: GAMAL MOREAU : [address]: Luisana Tse MD Acct: [id number] Unit: [id number] AGE: 23 Location: [facility] Re08/27/19 SEX: F Status: REG REF SPEC: [id number] CECILIA: 08/27/19-[address]: Luisana Tse MD REQ: [id number] RECD: 08/28/19-123 STATUS: COMP _ SOURCE: URINE SPDESC: ORDERED: Urine Culture COMMENTS: [id number] Urine Source: Random Procedure Result Reported Site Urine Culture Final 08/29/19- 1503 ML No growth of clinically significant organisms * ML - Main Lab . END OF REPORT DEPARTMENT OF PATHOLOGY, [address] [place] [address] Edgard Cleveland M.D. Director [facility] # [id number] 2 REFERENCE VALUE Cutoff: 500 3 REFERENCE VALUE Cutoff: 200 4 REFERENCE VALUE Cutoff: 100 5 REFERENCE VALUE Cutoff: 150 6 REFERENCE VALUE Cutoff: 300 7 REFERENCE VALUE Cutoff: 300 8 ADDITIONAL INFORMATION This report is intended for use in clinical monitoring or management of patients. It is not intended for use in employment-related testing. This test has been modified from the knowledge management consultant's instructions. Its performance characteristics were determined by [facility] in a manner consistent with CLIA requirements. This test has not been cleared or approved by the U.S. Food and Drug Administration. Test Performed by: [facility] [place] [address] Child Nutrition Assistant: Miguel A Castellanos M.D. Ph.D.; CLIA# [id number] 9 As with all diagnostic procedures, the laboratory results obtained should be used in conjunction with other clinical information available to the physician, including confirmation by another method, as applicable. 10 [id number] 11 Therapeutic target for the treatment of diabetes mellitus patients is <7% HBA1C, and in selective patients <6.0%. Please refer to [place] [employer] diabetic care guidelines for further information. 12 [id number] 13 [id number] ADDITIONAL INFORMATION Testing performed by Inductively Coupled Plasma-Mass Spectrometry (ICP-MS). This test was developed and its performance characteristics determined by [facility] in a manner consistent with CLIA requirements. This test has not been cleared or approved by the U.S. Food and Drug Administration. 15 Test Performed by: [facility] [place] [address] Child Nutrition Assistant: Miguel A Castellanos M.D. Ph.D.; CLIA# [id number] 16 SEE RESULT BELOW Name: GAMAL MOREAU : [address]: Red Camacho DO Acct: [id number] Unit: [id number] AGE: 23 Location: [facility] Re07/01/19 SEX: F Status: REG REF SPEC: [id number] CECILIA: 07/01/19-[address]: Red Camacho DO REQ: [id number] RECD: 07/01/19 STATUS: COMP _ SOURCE: URINE SPDESC: ORDERED: Urine Culture COMMENTS: [id number] Urine Source: Random Procedure Result Reported Site Urine Culture Final 07/02/19- 1437 ML No growth of clinically significant organisms * ML - Main Lab . END OF REPORT DEPARTMENT OF PATHOLOGY, [address] [place] [address] Edgard Cleveland M.D. Director [facility] # [id number] 17 [id number] LOW RISK 19 <1/10,000 (<0.01%) 20 <1/10,000 (<0.01%) 21 <1/10,000 (<0.01%) 22 <1/10,000 (<0.01%) 23 Condition tested excludes cases with evidence of and/or placental mosaicism. Prior risk for aneuploidy is based on maternal age and gestational age, where applicable. Panorama risk score is based on a priori risk and results of analysis of circulating placental DNA. Prior risk for microdeletion syndromes, if ordered, are based on overall disease prevalence in the population. This test will not i dentify all deletions associated with each disorder. This test has been validated on full region deletions only and may be unable to detect smaller deletions. 24 Testing Methodology DNA isolated from the maternal blood, which contains placental DNA, is amplified at specific loci using a targeted PCR assay and is sequenced using a high-throughput sequencer. fraction is determi jarvis using a proprietary algorithm incorporating data from single nucleotide polymorphism-based (SNP-based) next-generation sequencing [Pergashekhar E et al. Obstet Gynecol. 2014 Feb;124(2 Pt 1):210-8]. If the estimated fraction is ???2.8%, sequencing data is analyzed using a proprietary SNP-based algorithm to determine the copy number for chromosomes 13, 18, 21, X and Y [Lisandro Toussaint et al. Am J Ob stet Gynecol. 2014 May;211(5):527.e1-527.e17]. If ordered, specific microdeletions will be evaluated using similar methodology [Deonte BARRIENTOS et al. Am J Obstet Gynecol. 2015 Sep;212(3):332.e1-9]. If a [facility] fails to meet the quality threshold, or the fraction is insufficient , an additional algorithm is utilized to determine whether there is an increased risk for triploidy, trisomy 18 and trisomy 1 3 [Bubba et al. The Human Genetics Conference. [place], [place]. December 22-2016]. However, ???some samples will not produce a result due to failure to meet the necessary quality thresholds. Disclaimers This test has been validated on women with a rodríguez, twin or egg donor of at least nine weeks gestation. A result will not be available for higher order multiples and multiple gestation pre gnancies with an egg donor or surrogate, or bone marrow transplant recipients. Complete test panel is not available for twin gestations and pregnancies achieved with an egg donor or surrogate. For twin pregnancies with a fraction value below the threshold for analysis, a sum of the fractions for both twins will be reported. Findings of unknown significance will not be reported. As this ass ay is a screening test and not diagnostic, false positives and false negatives can occur. High risk test results need diagnostic confirmation by alternative testing methods. Low risk results do not full y exclude the diagnosis of any of the syndromes nor do they exclude the possibility of other chromosomal abnormalities or defects, which are not a part of this test. Potential sources of inaccurat e results include, but are not limited to, mosaicism, low fraction, limitations of current diagnostic techniques, or misidentification of samples. This test will not identify all deletions associa kofi with each microdeletion syndrome. This test has been validated on full region deletions only and may be unable to detect smaller deletions. Microdeletion risk score is dependent upon fraction, as deletions on the maternally inherited copy are difficult to identify at lower fractions. Test results should always be interpreted by a clinician in the context of clinical and familial data w ith the availability of genetic counseling when appropriate. The Panorama test was developed by [facility] a laboratory certified under the Clinical Laboratory Improvement Amendments (CLIA). This test has not been cleared or approved by the U.S, Food and Drug Administration (FDA). 25 Please refer to the attached PDF report 26 Test performed by [facility]. [address] [place] [address] CLIA ID #[id number] Laurie Ruth Ph.D., [facility], Loss Prevention And Safety Manager 27 IF THE ORDERING PROVIDER HAS QUESTIONS OR WISHES TO DISCUSS THE RESULTS, PLEASE CONTACT US AT [phone] #3. Ask for the NIPT genetic counselor information delivery analyst. 28 SEE RESULT BELOW Name: GAMAL MOREAU : [address]: Griselda Dove [facility] Acct: [id number] Unit: [id number] AGE: 23 Location: [facility] Re06/04/19 SEX: F Status: REG REF SPEC: [id number] CECILIA: 06/04/[address]: Griselda Dove [facility] REQ: [id number] RECD: 06/04/19 STATUS:COMP _ SOURCE: URINE SPDESC: ORDERED: Urine Culture COMMENTS: [id number] Urine Source: Random Procedure Result Reported Site Urine Culture Final 06/05/19- 1227 ML Mixed natalia; possible contamination. Suggest resubmission. * ML - Main Lab . END OF REPORT DEPARTMENT OF PATHOLOGY, [address] [place] [address] Edgard Cleveland M.D. Director [facility] # [id number] Procedures Date Code Description Status 08/18/2019 73483 Echography Uterus Complete Completed 06/04/2019 69096 OB Ultrasound First Trimester Completed Medical Devices Description No Information Available Encounters Type Date Location Provider Dx Diagnosis Office Visit 09/02/2019 [facility] Mariposa Langston MD N76.0 Acute vaginitis 9:30a Office Visit 08/27/2019 [facility] Luisana Tse MD R10.2 Pelvic and perineal 3:30p pain N39.0 Urinary tract infection, site not specified Office Visit 03/31/2019 9:00a [facility] Mariposa Langston, Z01.419 Encntr for business project analyst MD exam (general) (routine) w/o abn findings F17.210 Nicotine dependence, cigarettes, uncomplicated Assessments Date Code Description Provider 09/02/2019 N76.0 Acute vaginitis Mariposa Langston MD 08/27/2019 R10.2 Pelvic and perineal pain Luisana Tse MD 08/27/2019 N39.0 Urinary tract infection, site not specified Luisana Tse MD 08/18/2019 Z36.3 Encounter for screening for Hudson Ackerman M.D. malformations 08/18/2019 Z34.82 Encounter for supervision of other normal Hudson Ackerman M.D. , second trimester 08/18/2019 Z36.3 Encounter for screening for Ultrasounds malformations 08/05/2019 O99.212 [facility] complicating [facility] 07/28/2019 O99.212 Obesity complicating , second Griselda Dove CNM trimester 07/01/2019 Z36.9 Encounter for screening, Hudson Ackerman M.D. unspecified 07/01/2019 Z36.9 Encounter for screening, Laboratory unspecified 07/01/2019 O99.211 Obesity complicating , first Red Kelleyalban CORTES, DO trimester 06/17/2019 Z36.9 Encounter for screening, Mariposa Langston MD unspecified 06/17/2019 Z36.9 Encounter for screening, Laboratory unspecified 06/04/2019 O26.91 related conditions, unspecified, Luisana Tse MD first trimester 06/04/2019 Z23 Encounter for immunization KAYKAY Bermeo 06/04/2019 O26.91 related conditions, unspecified, Ultrasounds first trimester 03/31/2019 Z01.419 Encounter for gynecological examination Mariposa Langston MD (general) (routine) without abnormal findings 03/31/2019 F17.210 Nicotine dependence, cigarettes, Mariposa Langston MD uncomplicated Plan of Treatment Future Appointment(s):10/27/2019 1:30 pm - Luisana Tse MD at [facility] 10:40 am - Ana Cooper MD at [facility]10/09/2019 10:30 am - Laboratory at [facility]09/16/2019 11:00 am - Hudson Ackerman M.D. at [facility]08/27/2019 - Luisana Tse, MDR10.2 Pelvic and perineal painN39.0 Urinary tract infection, site not specified Functional Status Description No Information Available Mental Status Description No Information Available Referrals Description No Information Available
--- OUTSIDE RECORDS SUMMARY | 2019-09-18 23:47 | XMS REPORT | Summary of Care ---
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 nadolol (CORGARD) 20 MG Take 1 Tab by 30 Tab 3 04/08/2019 Active Oral Tab mouth DAILY. 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 Heart palpitations 06/13/2012 documented as of this encounter (statuses as of 08/05/2019) Immunizations Name Administration Dates Next Due DTAP [...] Sign Reading Time Taken Comments Blood Pressure 110/62 08/04/2019 11:07 AM EST Pulse 96 08/04/2019 11:07 AM EST Temperature - - Respiratory Rate - - Oxygen Saturation 98% 08/04/2019 11:07 AM EST Inhaled Oxygen Concentration - - Weight 117.4 kg (258 lb 12.8 oz) 08/04/2019 11:07 AM EST Height 167.6 cm (5' 6") 08/04/2019 11:07 AM EST Body Mass Index 41.77 08/04/2019 11:07 AM EST documented in this encounter Patient Instructions Patient InstructionsRomanyshyn, Darlene A, 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 [phone]. documented in this encounter Plan of Treatment Date Type Specialty Care Team Description 10/07/2019 Office Visit Cardiology Bernarda Waters CRNP [address] [place] [address] Health Maintenance Due Date Last Done Comments PNEUMOCOCCAL 0-64 YRS (1 of 2002 1 - PPSV23) DEPRESSION SCREENING 2008 HPV IMMUNIZATION SERIES (2 - 04/06/2011 10/04/2010 Female 2-dose series) PAP SMEAR 2017 DTaP/Tdap/Td Vaccines (7 - 04/13/2018 04/13/2008, 12/05/2001, Tdap) 02/25/1998, Additional history exists INFLUENZA VACCINE (#1) 2019 HEPATITIS A IMMUNIZATION Completed 04/13/2008, 06/25/2007 SERIES MENINGOCOCCAL VACCINE IMM Aged Out 08/18/2008 No longer eligible based on patient's age to complete this topic HIV SCREENING Completed 02/13/2012 documented as of this encounter Results Not on filedocumented in this encounter Visit Diagnoses Diagnosis 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 BMI 40.0-44.9, adult (HCC) Body Mass Index 40.0-44.9, adult Heart palpitations Palpitations SOB (shortness of breath) Shortness of breath 18 weeks gestation of state, incidental documented in this encounter Insurance Payer Benefit Plan / Subscriber ID Effective Dates Phone Address Type Group [employer]ESS xxxxxxxxxxxx 2019-Present [employer] PPO Guarantor Name Account Type Relation to Date of Phone Billing Address Patient Anaid Islas Personal/Family 1995 [address] (Home) [place], [place] [phone] (Work) documented as of this encounter Advance Directives Code Status Date Activated Date Inactivated Comments Full Code 10/10/2018 9:35 AM 10/10/2018 2:12 PM Does the patient have decision making capacity? Yes Order was discussed with: Patient I discussed all options and patient/surrogate requested and agreed to: Full Code
--- OUTSIDE RECORDS SUMMARY | 2019-09-18 23:47 | XMS REPORT | Continuity of Care Document ---
:1995 External Reference #:[id number] Author Name Luisana Tse MD Address [address] [place] [address] Problems Active Problems Provider Date Body mass index 40+ - severely obese Betsy Diallo CNM Onset: 12/12/2017 Zozth-Qngcczcpa-Wppad pattern Betsy Diallo CNM Onset: 03/22/2018 Note: [...] Medications SIG Qnty Indications Ordering Date Provider Nitrofurantoin take 1 tab by 10capmayela Tse, [...] + Dha 1 by mouth every 180units Griselda Dove, 06/04/2019 27-1&250mg day CNM THPK History Medications No Active Medications Unknown 06/04/2019 - 06/04/2019 Famotidine Take 1 Tablet By 60tabs Rowdyfernando Dove, 06/04/2019 - 40mg Tablets Mouth Daily. November CNM 07/28/2019 Increase To Twice Daily as Needed Medications Administered in Office Medication SIG Qnty Indications Ordering Provider Date PT SCRN Tbco Id as Non User Luisana Tse MD 08/27/2019 Injection Injection Rho (D) Immune Nurses 05/30/2018 Globulin, Human, One Dose Package Injection Immunizations CPT Code Status Date Vaccine Lot # [id number] Given 06/04/2019 Influenza Vaccine Quadrivalent Preser/Antibiotic [id number] Free Im Use 57200 Given 06/10/2018 Tetnus, Diptheria Toxoids And Acellular Pertussis, [id number] PT > 7Yrs Old 77782 Given 06/10/2018 Influenza Vaccine Quadrivalent Preser/Antibiotic [id number] Free Im Use Vital Signs Date Vital Result Comment 06/04/2019 8:06am BP Systolic 114 mmHg BP Diastolic 72 mmHg Height 66 inches 5'6" Weight 262.00 lb BMI (Body Mass Index) 42.3 kg/m2 Last Menstrual Period 0352308 2 Parity 1 03/31/2019 8:49am BP Systolic 112 mmHg BP Diastolic 68 mmHg Height 66 inches 5'6" Weight 257.00 lb BMI (Body Mass Index) 41.5 kg/m2 Last Menstrual Period 5976717 1 Parity 1 Results Test Acquired Date Facility Test Result H/L Range Note Drug Abuse 07/28/2019 [facility] Urine Alcohol Negative mg/dL Cutoff: [address], [place] [address] Ur [phone] Urine Amphetamine Negative ng/mL 1 Urine Barbiturates Negative ng/mL 2 Urine Benzodiazepines Negative ng/mL 3 Urine Cocaine Negative ng/mL 4 Urine Methadone Negative ng/mL Negative 5 Urine Opiates Negative ng/mL Negative 6 Urine Phencyclidine Negative ng/mL Cutoff: 25 Urine Tetrahydrocannabinol Negative ng/mL Cutoff: 50 7 GC/Chlamydia Dna 07/28/2019 [facility] GCCHL Disclaimer (SEE NOTE) [address] [place] [address] [phone] Chlamydia trachomatis Cher Negative Negative Neisseria gonorrhoeae (GC) Cher Negative Negative PNL No 07/01/2019 [facility] Rubella Screen Immune Immune 9 [place] [address] [phone] Hemoglobin A1c 5.0 % Normal 4.0-5.6 10 Hepatitis B Surface Ag Nonreactive Nonreactive 11 Syphillis Igg W/Reflex RPR Negative Negative 12 CBC With No 07/01/2019 [facility] White Blood 11.0 10^3/uL High 3.5-10.8 [place] [address] Count [phone] Red Blood Count 4.02 10^6/uL Normal 3.70-4.87 [...] fL Normal 7.4-10.4 Type And Screen 07/01/2019 [facility] Patient Blood [place] [address] [phone] Antibody Screen NEGATIVE Lead 07/01/2019 [facility] Lead,Venous, B < 1.0 g/dL 0.0- 4.9 13 [place] [address] [phone] Venous/Capillary Venous Submitting Laboratory Phone [phone] HIV 1&2 p24 07/01/2019 [facility] HIV 4th Nonreactive [place] [address] Generation [phone] Urine Culture 07/01/2019 [facility] Urine SEE RESULT 15 [place] [address] Culture BELOW Sensitivities [phone] Laboratory 06/17/2019 [facility] Glucose 1 98 mg/dL Normal 70- 160 16 [place] [address] HR Post [phone] Prandial Panorama 06/17/2019 [place] Report See Notes Normal 17 Test Summary Report Note See Notes Normal Trisomy 13 Age-Based Risk Fraction 07/7825 Normal Trisomy 13 Risk Score Text <1/10,000 (<0.01 <SEE NOTE> Normal 18 Trisomy 13 Risk Score Fraction <1/65567 Normal Trisomy 13 Result Text Low Risk Normal Trisomy 13 Result Comments See Notes Normal Trisomy 18 Age-Based Risk Fraction 07/2483 Normal Trisomy 18 Risk Score Text <1/10,000 (<0.01 <SEE NOTE> Normal 19 Trisomy 18 Risk Score Fraction <1/83871 Normal Trisomy 18 Result Text Low Risk Normal Trisomy 18 Result Comments See Notes Normal Trisomy 21 Age-Based Risk Fraction 07/1067 Normal Trisomy 21 Risk Score Text <1/10,000 (<0.01 <SEE NOTE> Normal 20 Trisomy 21 Risk Score Fraction <1/21279 Normal Trisomy 21 Result Text Low Risk Normal Trisomy 21 Result Comments See Notes Normal Monosomy X Age-Based Risk Fraction 1/255 Normal Monosomy X Risk Score <0.01 % Normal Monosomy X Risk Score Text <1/10,000 (<0.01 <SEE NOTE> Normal 21 Monosomy X Risk Score Fraction <1/50116 Normal Monosomy X Result Text Low Risk Normal Monosomy X Result Comments See Notes Normal Triploidy Result Text Low Risk Normal Triploidy Result Comments See Notes Normal Gender of Fetus Male Fraction (in %) 5.8 % Fraction 5.8% Footnotes See Notes 22 Boiler Plate Text See Notes 23 References See Notes 24 Approvals See Notes 25 Contacts See Notes 26 Urine Culture And 06/04/2019 [facility] Urine Culture SEE RESULT 27 [place] [address] BELOW [phone] 1 REFERENCE VALUE Cutoff: 500 2 REFERENCE VALUE Cutoff: 200 3 REFERENCE VALUE Cutoff: 100 4 REFERENCE VALUE Cutoff: 150 5 REFERENCE VALUE Cutoff: 300 6 REFERENCE VALUE Cutoff: 300 7 ADDITIONAL INFORMATION This report is intended for use in clinical monitoring or management of patients. It is not intended for use in employment-related testing. This test has been modified from the inspector firearms's instructions. Its performance characteristics were determined by [facility] in a manner consistent with CLIA requirements. This test has not been cleared or approved by the U.S. Food and Drug Administration. Test Performed by: [address] [address] Invasive Cardiologist: Miguel A Castellanos M.D. Ph.D.; CLIA# [id number] 8 As with all diagnostic procedures, the laboratory results obtained should be used in conjunction with other clinical information available to the physician, including confirmation by another method, as applicable. 9 [id number] 10 Therapeutic target for the treatment of diabetes mellitus patients is <7% HBA1C, and in selective patients <6.0%. Please refer to [place] [employer] diabetic care guidelines for further information. 11 [id number] 12 [id number] 13 ADDITIONAL INFORMATION Testing performed by Inductively Coupled Plasma-Mass Spectrometry (ICP-MS). This test was developed and its performance characteristics determined by [facility] in a manner consistent with CLIA requirements. This test has not been cleared or approved by the U.S. Food and Drug Administration. 14 Test Performed by: [facility] [place] [address] [place] [address] Invasive Cardiologist: Miguel A Castellanos M.D. Ph.D.; CLIA# [id number] 15 SEE RESULT BELOW Name: GAMAL MOREAU : [address]: Red Camacho DO Acct: [id number] Unit: [id number] AGE: 23 Location: [facility] Re07/01/19 SEX: F Status: REG REF SPEC: [id number] CECILIA: 07/01/19-[address]: Red Camacho DO REQ: [id number] RECD: 07/01/19 STATUS: COMP _ SOURCE: URINE SPDESC: ORDERED: Urine Culture COMMENTS: [id number] Urine Source: Random Procedure Result Reported Site Urine Culture Final 07/02/19- 1437 ML No growth of clinically significant organisms * ML - Main Lab . END OF REPORT DEPARTMENT OF PATHOLOGY, [address] [place] [address] Edgard Cleveland M.D. Director [facility] # [id number] 16 [id number] 17 LOW RISK 18 <1/10,000 (<0.01%) 19 <1/10,000 (<0.01%) 20 <1/10,000 (<0.01%) 21 <1/10,000 (<0.01%) 22 Condition tested excludes cases with evidence of [...] may be unable to detect smaller deletions. 23 Testing Methodology DNA isolated from the maternal blood, which contains placental DNA, is amplified at specific loci using a targeted PCR assay and is sequenced using a high-throughput sequencer. fraction is determi jarvis using a proprietary algorithm incorporating data from single nucleotide polymorphism-based (SNP-based) next-generation sequencing [Binu E et al. Obstet Gynecol. 2014 Feb;124(2 Pt 1):210-8]. If the estimated fraction is ???2.8%, sequencing data is analyzed using a proprietary SNP-based algorithm to determine the copy number for chromosomes 13, 18, 21, X and Y [Lisandro Browning al. Am J Ob stet Gynecol. 2014 May;211(5):527.e1-527.e17]. If ordered, specific microdeletions will be evaluated using similar methodology [Deonte BARRIENTOS et al. Am J Obstet Gynecol. 2015 Mar;212(3):332.e1-9]. If a samp le fails to meet the quality threshold, or the fraction is insufficient , an additional algorithm is utilized to determine whether there is an increased risk for triploidy, trisomy 18 and trisomy 1 3 [Bubba tang al. The Human Genetics Conference. [facility]. December 22-2016]. However, ???some samples will not [...] appropriate. The Panorama test was developed by [facility] a laboratory certified under the Clinical Laboratory Improvement Amendments (CLIA). This test has not been cleared or approved by the U.S, Food and Drug Administration (FDA). 24 Please refer to the attached PDF report 25 Test performed by [facility]. [address] [place] [address] CLIA ID #[id number] Laurie Ruth Ph.D., [facility], Survey Interviewer 26 IF THE ORDERING PROVIDER HAS QUESTIONS OR WISHES TO DISCUSS THE RESULTS, PLEASE CONTACT US AT [phone] #3. Ask for the [facility] genetic counselor precision crop manager. 27 SEE RESULT BELOW Name: GAMAL MOREAU : [address]: Griselda Dove CNM Acct: [id number] Unit: [id number] AGE: 23 Location: [facility] Re06/04/19 SEX: F Status: REG REF SPEC: [id number] CECILIA: [birth year][address]: Griselda Dove CNM REQ: [id number] RECD: 06/04/19 STATUS:COMP _ SOURCE: URINE SPDESC: ORDERED: Urine Culture COMMENTS: [id number] Urine Source: Random Procedure Result Reported Site Urine Culture Final 06/05/19- 1227 ML Mixed natalia; possible contamination. Suggest resubmission. * ML - Main Lab . END OF REPORT DEPARTMENT OF PATHOLOGY, [address] [place] [address] Edgard Cleveland M.D. Director [facility] # [id number] Procedures Date Code Description Status 08/18/2019 25984 Echography Uterus Complete Completed 06/04/2019 90871 OB Ultrasound First Trimester Completed Medical Devices Description No Information Available Encounters Type Date Location Provider Dx Diagnosis Office Visit 08/27/2019 [facility] Luisana Tse MD R10.2 Pelvic and perineal 3:30p pain N39.0 Urinary tract infection, site not specified Office Visit 03/31/2019 9:00a [facility] Mariposa Langston Z01.419 Encntr for helper animal laboratory MD exam (general) (routine) w/o abn findings F17.210 Nicotine dependence, cigarettes, uncomplicated Assessments Date Code Description Provider 08/27/2019 R10.2 Pelvic and perineal pain Luisana Tse MD 08/27/2019 N39.0 Urinary tract infection, site not specified Luisana Tse MD 08/18/2019 Z36.3 Encounter for screening for Hudson Ackerman M.D. malformations 08/18/2019 Z34.82 Encounter for supervision of other normal Hudson Ackerman M.D. , second trimester 08/18/2019 Z36.3 Encounter for screening for Ultrasounds malformations 08/05/2019 O99.212 Obesity complicating , second Red Camacho JR, DO trimester 07/28/2019 O99.212 Obesity complicating , second KAYKAY Bermeo trimester 07/01/2019 Z36.9 Encounter for screening, Hudson Ackerman M.D. unspecified 07/01/2019 Z36.9 Encounter for screening, Laboratory unspecified 07/01/2019 O99.211 Obesity complicating , first Red Camacho JR, DO trimester 06/17/2019 Z36.9 Encounter for screening, Mariposa Langston MD unspecified 06/17/2019 Z36.9 Encounter for screening, Laboratory unspecified 06/04/2019 O26.91 related conditions, unspecified, Luisana Tse MD first trimester 06/04/2019 Z23 Encounter for immunization Griselda Dove CNM 06/04/2019 O26.91 related conditions, unspecified, Ultrasounds first trimester 03/31/2019 Z01.419 Encounter for gynecological examination Mariposa Langston MD (general) (routine) without abnormal findings 03/31/2019 F17.210 Nicotine dependence, cigarettes, Mariposa Langston MD uncomplicated Plan of Treatment Future Appointment(s):10/27/2019 1:30 pm - Luisana Tse MD at [facility] 10:40 am - Ana Cooper MD at [facility]10/09/2019 10:30 am - Laboratory at [facility]09/16/2019 11:00 am - Hudson Ackerman M.D. at [facility]08/27/2019 - Luisana Tse, MDR10.2 Pelvic and perineal painN39.0 Urinary tract infection, site not specified Functional Status Description No Information Available Mental Status Description No Information Available Referrals Description No Information Available
[2019-09-19 00:19] LABS: ABS Eosinophils 0.2 10^3/ul (0-0.6); ABS Lymphocytes 3.1 10^3/ul (1.0-4.8); ABS Monocytes 0.8 10^3/ul (0-0.8); ABS Neutrophils 11.3 10^3/ul (1.5-7.7); Eosinophil % 1.2 %; Hematocrit 34 % (35-47); Hemoglobin 11.4 g/dL (12.0-16.0); Lymphocyte % 20.2 %; Mean Corpuscular HGB Conc 34 g/dL (31-36); Mean Corpuscular Hemoglobin 33 pg (27-31); Mean Corpuscular Volume 95 fL (80-97); Platelet Count 226 10^3/uL (150-450); Red Blood Count 3.51 10^6 /uL (3.70-4.87); Red Cell Distribution Width 13 % (10-15); White Blood Count 15.5 10^3/uL (3.5-10.8)
[2019-09-19 00:36] LABS: Albumin 3.8 g/dL (3.2-5.2); Albumin/Globulin Ratio 1.5 (1-3); Calcium 9.1 mg/dL (8.6-10.3); EGFR African American 186.7 (>60); EGFR Non-African American 154.3 (>60); Globulin 2.5 g/dL (2-4); Potassium 3.9 mmol/L (3.5-5.0); Total Bilirubin 0.2 mg/dL (0.2-1.0); Total Protein 6.3 g/dL (6.4-8.9)
[2019-09-19] MEDS ORDERED: Famotidine TAB* 20 MG PO ONE (02:28)
[2019-09-19] MEDS ORDERED: Levothyroxine TAB* 25 MCG TAB PO ONE (07:11)
--- NOTE | 2019-09-19 07:14 | ED ---
Progress - Progress Note Progress Note: This pt is a sign out from Dr. Varun Lugo MD to Dr. Phani Stanton MD pending a VQ scan to R/O a PE and disposition. - Results/Orders Results/Orders: [place] Doppler Study: NO RIGHT LOWER EXTREMITY DEEP VEIN THROMBOSIS. NO LEFT LOWER EXTREMITY DEEP VEIN THROMBOSIS. ED physician has reviewed this report. Re-Evaluation - Re-Evaluation First Eval Re-Evaluation Time: 07:14 Change: Unchanged Comment: She is a 23 Y/O F and has a Hx of daniels-parkinson right and has been off work since Saturday. She started levothyroxine and has been experiencing CP and SOB since Saturday. She reports on my exam that she still has SOB that is a 3 /4 in intensity and denies CP. Her labs are not proving a D-Dimer. She is currently on the fence for a VQ scan and will receive more levothyroxine to see if her CC is medication related. Second Eval Re-Evaluation Time: 08:30 Change: Improved Comment: Pt reports no SOB or CP following her medication. She states that she is however feeling slightly dizzy, which is any accepted side effect of the medication. She will be discharged home. Course/Dx - Course Course Of Treatment: Patient was signed out from Dr. Lugo. Patient's history obtained by myself. Patient is 24 weeks . Patient has history of Vito -Parkinson-White and has been on bed rest since July due to worsening symptoms. Patient was started on 25 g of levothyroxine yesterday. One hour after taking the medicine, patient started having chest pain, shortness of breath, and feeling dizzy. Upon arrival here last night, patient had chest pain and shortness of breath. Patient had blood work performed which showed a negative d-dimer. Upon my reexamination, patient had no chest pain in her shortness of breath was nearly gone. Patient was not hypoxic and had a heart rate in the 80s. Patient had a ultrasound of her bilateral lower extremities performed which was negative for DVT. Patient was given her levothyroxine here and had a recurrence of her dizziness. Patient's chest pain and shortness of breath completely went away all she was in the ED. Given patient's negative d- dimer, normal vital signs, negative ultrasound of her lower extremities, and negative chest x-ray, I do not believe patient would benefit from a VQ scan as there is radiation to her baby due to this. Patient was comfortable with this decision - Diagnoses Provider Diagnoses: Chest pain, SOB (shortness of breath), Discharge ED - Sign-Out/Discharge Documenting (check all that apply): Patient Departure - discharge - Discharge Plan Condition: Good Disposition: HOME Patient Education Materials: Chest Pain (ED), (ED), Shortness of Breath (ED) Referrals: [facility] [Provider Group] - 1 Week Additional Instructions: Call [facility] to discuss your levothyroxine. Follow up next week. RETURN TO THE EMERGENCY DEPARTMENT FOR ANY NEW OR WORSENING SYMPTOMS INCLUDING AN INCREASE IN CHEST PAIN AND SOB. - Billing Disposition and Condition Condition: GOOD Disposition: Home - Attestation Statements Document Initiated by Tammie: Yes Documenting Scribe: Titi Benoit Provider For Whom Tammie is Documenting (Include Credential): Phani Stanton MD Scribe Attestation: Titi Esteves, scribed for Phani Stanton MD on 09/19/19 at 1838. Scribe Documentation Reviewed: Yes Provider Attestation: The documentation as recorded by the Titi chávez accurately reflects the service I personally performed and the decisions made by me, Phani Stanton MD Status of Scribe Document: Viewed
[2019-09-19 08:33] VITALS: BP 120/75
== END 2019-09-19 08:40 | disposition home or self-care (01) ==
LOC: ED 22:58
DX: O26.892 Other specified pregnancy related conditions, second trimester (principal); R07.89 Other chest pain; R06.02 Shortness of breath; R00.0 Tachycardia, unspecified; Z3A.01 Less than 8 weeks gestation of pregnancy; I10 Essential (primary) hypertension; I45.6 Pre-excitation syndrome; Z88.0 Allergy status to penicillin; Z87.891 Personal history of nicotine dependence
CPT/HCPCS: 36415; 71046; 80053; 83605; 84484; 85025; 85379; 93005; 93970; 99284; A9270-GY

== ENCOUNTER 2021-11-07 09:15 | Inpatient (IN) ==
[2021-11-14] MEDS ORDERED: Lactated Ringers 1000 ml BAG 1,000 ML IV SCH (06:00)
[2021-11-14] MEDS ORDERED: Buffered Lidocaine 1% SYRIN 1 ml INTRADERM ONE ×2 (06:00→09:37)
[2021-11-14] MEDS ORDERED: Scopolamine 1 mg/72hr PATCH ONE (09:37)
[2021-11-14] MEDS ORDERED: Clindamycin 900 MG/D5W BAG 900 MG/50 ML BAG IVPB ONE (09:37)
[2021-11-14] MEDS ORDERED: Heparin 5000 UNITS/ML 1 mL VIAL ONE (09:37)
[2021-11-14] MEDS ORDERED: Lidocaine 1% w EPI 1:200,000 SDV 30 ML VIAL ONE (09:41)
[2021-11-14] MEDS ORDERED: Methylene Blue 0.5 % 50 MG/10 ML AMP IV ONE (09:41)
[2021-11-14] MEDS ORDERED: Bupivacaine 0.5% 50 ML MDV VIAL ONE (09:41)
[2021-11-14] MEDS ORDERED: Propofol 10 MG/ML 20 ML BTL ONE (09:58)
[2021-11-14] MEDS ORDERED: Rocuronium 50 mg VIAL 10 mg/ml 5 ml VIAL (50 mg) ONE ×3 (09:59→12:43)
[2021-11-14] MEDS ORDERED: Succinylcholine 200 mg VIAL 20 mg/ml 10 ml VIAL (200 mg) ONE (10:03)
[2021-11-14] MEDS ORDERED: Midazolam 2 mg/2 ml VIAL 1 mg/ml 2 ml VIAL (2 mg) ONE (10:38)
[2021-11-14] MEDS ORDERED: fentaNYL 250 mcg/5 ml 50 MCG/ML 5 ml VIAL (250 MCG) ONE ×2 (10:38→13:21)
[2021-11-14] MEDS ORDERED: Ondansetron 4 mg VIAL 2 MG/ML 2 ml VIAL ONE (11:46)
[2021-11-14] MEDS ORDERED: Dexamethasone IV 4 MG/ML VIAL 1 ml VIAL ONE (11:46)
[2021-11-14] MEDS ORDERED: Acetaminophen IV 1 GM/100ML 100 ML IV ONE (11:53)
[2021-11-14] MEDS ORDERED: fentaNYL 100 mcg/2 ml 50 MCG/ML VIAL ONE (13:22)
[2021-11-14] MEDS ORDERED: Ondansetron 4 mg VIAL 2 MG/ML 2 ml VIAL IV PRN (13:30)
[2021-11-14] MEDS ORDERED: HYDROcodone/ACET. 7.5/325 LIQ 15 ML UDC PO PRN (13:30)
[2021-11-14] MEDS ORDERED: Labetalol IV 5 MG/ML 20 ml VIAL IV PUSH ONE (13:50)
[2021-11-14] MEDS ORDERED: Labetalol IV 5 MG/ML 20 ml VIAL ONE (13:52)
[2021-11-14] MEDS ORDERED: Naloxone 0.4 mg VIAL 0.4 mg/ml 1 ml VIAL IV PRN (13:58)
[2021-11-14] MEDS ORDERED: HYDROmorphone 1 MG/1 ML SYRINGE IV PRN (13:58)
[2021-11-14] MEDS ORDERED: HYDROmorphone 1 MG/1 ML SYRINGE ONE (13:59)
[2021-11-14] MEDS: HYDROmorphone 0.5 MG/0.5 ML SYRINGE IV SLOW PU PRN ×2 (14:02→17:57)
[2021-11-14] MEDS: Lactated Ringers 1000 ml BAG 1,000 ML IV SCH ×2 (15:37→22:17)
[2021-11-14] MEDS: Heparin 5000 UNITS/ML 1 mL VIAL SUBCUT SCH (22:15)
[2021-11-15] MEDS: Lactated Ringers 1000 ml BAG 1,000 ML IV SCH (05:31)
[2021-11-15] MEDS: Heparin 5000 UNITS/ML 1 mL VIAL SUBCUT SCH ×2 (05:32→14:32)
[2021-11-15 11:25] VITALS: BP 125/83
[2021-11-15] MEDS ORDERED: D5W 1/2 NS KCl 20 meq 1000 ml 1,000 ML IV SCH (14:00)
== END 2021-11-15 15:50 | disposition home or self-care (01) | DRG 403 ==
LOC: AA 11-14 09:23 → SSU 11-14 15:26
PROVIDERS: ADMIT Surgery; ATTEND Surgery